=== PATIENT | female | born 1935 | race Hispanic/Latino ===

== ENCOUNTER 2017-08-05 09:27 | Emergency (ER) | payer MEDICARE, BC ==
[2017-08-05 09:27] VITALS: BMI 22.8
[2017-08-05 09:41] VITALS: BP 147/66; PULSE 74; RESP 16; TEMP 98.1
[2017-08-05 09:51] VITALS: O2SAT 98
--- NOTE | 2017-08-05 11:22 | RAD ---
PROCEDURE: Right Thumb radiographs. HISTORY: r/o fb COMPARISON: None. TECHNIQUE: AP radiograph of the right hand, as well as spot oblique and lateral images of thumb were obtained. FINDINGS: RIGHT THUMB: No acute fracture. Osteoarthritis CMC 1. Osteoarthritis IP 1 comment DIP 2 and 5. No articular erosions. No osseous fracture. No radiopaque foreign body. Remainder of the right hand (as seen on the AP view) grossly unremarkable. JOINTS: As above SOFT TISSUES: Normal. OTHER FINDINGS: None. IMPRESSION: No radiopaque foreign body. Multifocal osteoarthritis. No acute fracture.
--- NOTE | 2017-08-05 13:56 | ED PDOC ---
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 The patient states she was outside gardening and she thinks she may have a thorn stuck in side of her thumb, she denies any trauma. The patient reports she has been able to express pus from the area earlier today. She denies any fever, abdominal pain, chest pain, or any other complaints at this time. Time/Duration: < week Symptom Onset: Sudden Symptom Course: Unchanged Activities at Onset: Significant (gardening ) Context: Home Past Medical History - Provider Review Nursing Documentation Reviewed: Yes - Infectious Disease Hx of Infectious Diseases: None - Cardiac Hx Hypertension: Yes Hx Pacemaker: Yes - Pulmonary Hx Asthma: Yes - Neurological Hx Dizziness: Yes - HEENT Hx HEENT Disorder: Yes (rhinoplasty) Hx Cataracts: Yes (bilateral) Other/Comment: b/l hearing aides, eyeglasses - Renal Hx Renal Disorder: No - Endocrine/Metabolic Hx Hypothyroidism: Yes - Hematological/Oncological Hx Blood Disorders: No - Integumentary Other/Comment: left great toe fungus infection - Musculoskeletal/Rheumatological Hx Arthritis: Yes - Gastrointestinal Hx Gastrointestinal Disorders: Yes Hx Diverticulitis: Yes - Genitourinary/Gynecological Hx Genitourinary Disorders: No - Psychiatric Hx Psychophysiologic Disorder: No Hx Substance Use: No - Surgical History Hx Cardiac Catheterization: No Hx Hysterectomy: Yes Hx Open Heart Surgery: No Hx Orthopedic Surgery: Yes (R KNEE total knee replacement) Hx Valve Replacement: No Other/Comment: sarcoma resection leg, left breast nodule excision, r ft hammertoe sx - Anesthesia Hx Anesthesia Reactions: No - Suicidal Assessment Feels Threatened In Home Enviroment: No Family/Social History - Physician Review Nursing Documentation Reviewed: Yes Family/Social History: Unknown Family HX Smoking Status: Never Smoked Hx Alcohol Use: No Hx Substance Use: No Allergies/Home Meds Allergies/Adverse Reactions: Allergies CAT DANDER Adverse Reaction (Severe, Uncoded 08/05/17 09:33) ITCHY EYES/SNEEZING Home Medications: Home Meds Medication Instructions Recorded Confirmed Levothyroxine [Synthroid] 50 mcg PO QAM 12/13/16 08/05/17 Rosuvastatin Calcium [Crestor] 5 mg PO HS 12/13/16 08/05/17 Albuterol HFA [Ventolin HFA 90 2 puff NEB Q6 PRN 08/05/17 08/05/17 mcg/actuation (8 g)] Montelukast [Singulair] 10 mg PO DAILY 08/05/17 08/05/17 Nebivolol [Bystolic] 5 mg PO DAILY 08/05/17 08/05/17 Review of Systems - Physician Review All systems were reviewed & negative as marked: Yes - Review of Systems Constitutional: absent: Fevers Cardiovascular: absent: Chest Pain Gastrointestinal: absent: Abdominal Pain Skin: Abscess (abscess to right thumb; able to extract pus earlier today. ) Physical Exam Vital Signs Reviewed: Yes Vital Signs Temp Pulse Resp BP Pulse Ox 08/05/17 09:51 98.1 F 74 16 147/66 98 08/05/17 09:36 98.1 F 74 16 147/66 97 Temperature: Afebrile Blood Pressure: Normal Pulse: Regular Respiratory Rate: Normal Appearance: Positive for: Well-Appearing, Non-Toxic, Comfortable Pain Distress: None Mental Status: Positive for: Alert and Oriented X 3 - Systems Exam Head: Present: Atraumatic, Normocephalic Pupils: Present: PERRL Extroacular Muscles: Present: EOMI Conjunctiva: Present: Normal Neck: Present: Normal Range of Motion Respiratory/Chest: Present: Clear to Auscultation, Good Air Exchange. No: Respiratory Distress, Accessory Muscle Use Cardiovascular: Present: Regular Rate and Rhythm, Normal S1, S2. No: Murmurs Abdomen: Present: Normal Bowel Sounds. No: Tenderness, Distention, Peritoneal Signs Upper Extremity: Present: Normal Inspection. No: Cyanosis, Edema Lower Extremity: Present: Normal Inspection. No: Edema Neurological: Present: GCS=15, CN II-XII Intact, Speech Normal Skin: Present: Abscess (Dorsal aspect of DIP joint on right thumb has a 1/2 cm abscess that was able to express fluid; good capillary refill) Psychiatric: Present: Alert, Oriented x 3, Normal Insight, Normal Concentration Medical Decision Making ED Course and Treatment: 08/05/17 13:56 Impression: 82 year old female with abscess to right thumb. Differential Diagnosis included but are not limited to: Plan: -- Keflex -- Reassess and disposition Progress Notes: - RAD Interpretation Radiology Orders: 08/05/17 09:53 HAND RIGHT THUMB [RAD] Stat - Medication Orders Current Medication Orders: Discontinued Medications Cephalexin Monohydrate (Keflex) 500 mg PO STAT STA PRN Reason: Protocol Stop: 08/05/17 11:10 Last Admin: 08/05/17 11:31 Dose: 500 mg - Scribe Statement The provider has reviewed the documentation as recorded by the Joselineibe Una Hartmann Provider Scribe Attestation: All medical record entries made by the Scribe were at my direction and personally dictated by me. I have reviewed the chart and agree that the record accurately reflects my personal performance of the history, physical exam, medical decision making, and the department course for this patient. I have also personally directed, reviewed, and agree with the discharge instructions and disposition. Disposition/Present on Arrival - Present on Arrival Any Indicators Present on Arrival: No History of DVT/PE: No History of Uncontrolled Diabetes: No Urinary Catheter: No History of Decub. Ulcer: No History Surgical Site Infection Following: None - Disposition Have Diagnosis and Disposition been Completed?: Yes Diagnosis: Abscess of thumb Disposition: HOME/ ROUTINE Disposition Time: 10:40 Condition: GOOD Discharge Instructions (ExitCare): Abscess (ED) Additional Instructions: Thank you for letting us take care of you today. Your provider was Dr. Fernández. You were treated for a thumb abscess. The emergency medical care you received today was directed at your acute symptoms. If you were prescribed any medication, please fill it and take as directed. It may take several days for your symptoms to resolve. Return to the Emergency Department if your symptoms worsen, do not improve, or if you have any other problems. Please contact your doctor or call one of the physicians/clinics you have been referred to that are listed on the Patient Visit Information form that is included in your discharge packet. Bring any paperwork you were given at discharge with you along with any medications you are taking to your follow up visit. Our treatment cannot replace ongoing medical care by a primary care provider (PCP) outside of the emergency department. Thank you for allowing the [facility] team to be part of your care today. Follow up with your doctor in 2-3 days for re-evaluation and further management. Prescriptions: Cephalexin [cephalexin] 500 mg PO Q8 #15 cap Referrals: PCP,NO [Primary Care Provider] - Follow up with primary Forms: [employer] (Greenlandic)
== END 2017-08-05 11:42 | disposition home or self-care (01) ==
LOC: ED 09:27
DX: L02.511 Cutaneous abscess of right hand (principal); I10 Essential (primary) hypertension; I44.1 Atrioventricular block, second degree; R00.1 Bradycardia, unspecified

== ENCOUNTER 2017-09-24 09:58 | Emergency (ER) | payer MEDICARE, BC ==
[2017-09-24] MEDS ORDERED: Albuterol-Ipratrop 3 mg / 0.5 (3 ml) UD IH STA (10:17)
--- NOTE | 2017-09-24 10:21 | ED PDOC ---
Arrival/HPI - General Chief Complaint: Shortness Of Breath Time Seen by Provider: 09/24/17 10:03 Historian: Patient - History of Present Illness Time/Duration: Other (Several months) Symptom Onset: Gradual Symptom Course: Worsening Severity Level: Mild Activities at Onset: Rest Associated Symptoms (Text): 09/24/17 10:18 Patient complains of a several month history of worsening shortness of breath. No cough congestion or URI. No fever or chills. No chest or back pain. No abdominal pain nausea or vomiting. She's been seen by her PMD and also the personal trainer. She had sleep apnea testing done, which she reports was positive , but she has not yet received her CPAP equipment. She appears comfortable and in no distress. She is somewhat anxious. She states the breathing was worse last night. She does not have a nebulizer at home. She has a history of asthma. She is a never smoker. PMD: Dr. Garza Past Medical History - Provider Review Nursing Documentation Reviewed: Yes - Infectious Disease Hx of Infectious Diseases: None - Reproductive Menopause: Yes - Cardiac Hx Hypertension: Yes Hx Pacemaker: Yes - Pulmonary Hx Asthma: Yes Hx Sleep Apnea: Yes - Neurological Hx Dizziness: Yes - HEENT Hx HEENT Disorder: Yes (rhinoplasty) Hx Cataracts: Yes (bilateral) Other/Comment: b/l hearing aides, eyeglasses - Renal Hx Renal Disorder: No - Endocrine/Metabolic Hx Hypothyroidism: Yes - Hematological/Oncological Hx Blood Disorders: No - Integumentary Other/Comment: left great toe fungus infection - Musculoskeletal/Rheumatological Hx Arthritis: Yes - Gastrointestinal Hx Gastrointestinal Disorders: Yes Hx Diverticulitis: Yes - Genitourinary/Gynecological Hx Genitourinary Disorders: No - Psychiatric Hx Psychophysiologic Disorder: No Hx Substance Use: No - Surgical History Hx Cardiac Catheterization: No Hx Hysterectomy: Yes Hx Open Heart Surgery: No Hx Orthopedic Surgery: Yes (R KNEE total knee replacement) Hx Valve Replacement: No Other/Comment: sarcoma resection leg, left breast nodule excision, r ft hammertoe sx - Anesthesia Hx Anesthesia Reactions: No - Suicidal Assessment Feels Threatened In Home Enviroment: No Family/Social History - Physician Review Nursing Documentation Reviewed: Yes Family/Social History: Unknown Family HX Smoking Status: Never Smoked Hx Alcohol Use: No Hx Substance Use: No Allergies/Home Meds Allergies/Adverse Reactions: Allergies CAT DANDER Adverse Reaction (Severe, Uncoded 08/05/17 09:33) ITCHY EYES/SNEEZING Home Medications: Home Meds Medication Instructions Recorded Confirmed Levothyroxine [Synthroid] 50 mcg PO QAM 12/13/16 09/24/17 Albuterol HFA [Ventolin HFA 90 2 puff NEB Q6 PRN 08/05/17 09/24/17 mcg/actuation (8 g)] Montelukast [Singulair] 10 mg PO DAILY 08/05/17 09/24/17 Budesonide/Formoterol Fumarate 10.2 gm IH PRN PRN 09/24/17 09/24/17 [Symbicort 160-4.5 Mcg Inhaler] Lisinopril [Zestril] 5 mg PO DAILY 09/24/17 09/24/17 Review of Systems - Physician Review All systems were reviewed & negative as marked: Yes - Review of Systems Constitutional: Fatigue. absent: Fevers ENT: absent: Sinus Congestion Respiratory: SOB. absent: Cough, Sputum, Wheezing Cardiovascular: absent: Chest Pain, Palpitations, Syncope Gastrointestinal: absent: Abdominal Pain, Diarrhea, Nausea, Vomiting Neurological: absent: Headache, Dizziness Physical Exam Vital Signs Reviewed: Yes Vital Signs Temp Pulse Resp BP Pulse Ox 09/24/17 12:15 97.9 F 61 19 123/44 L 95 09/24/17 10:16 97.9 F 64 18 150/80 99 09/24/17 10:14 18 99 Temperature: Afebrile Blood Pressure: Normal Pulse: Regular Respiratory Rate: Normal Appearance: Positive for: Well-Appearing, Non-Toxic, Comfortable Pain Distress: None Mental Status: Positive for: Alert and Oriented X 3 - Systems Exam Head: Present: Atraumatic, Normocephalic Pupils: Present: PERRL Extroacular Muscles: Present: EOMI Conjunctiva: Present: Normal Ears: Present: NORMAL TM, Normal Canal. No: Erythema Mouth: Present: Moist Mucous Membranes Pharnyx: No: ERYTHEMA, EXUDATE, TONSILS ENLARGED Neck: Present: Normal Range of Motion Respiratory/Chest: Present: Clear to Auscultation, Good Air Exchange. No: Respiratory Distress, Accessory Muscle Use, Wheezes, Rales, Retracting, Rhonchi , Tachypneic, Tender to Palpation Cardiovascular: Present: Regular Rate and Rhythm, Normal S1, S2. No: Murmurs Abdomen: Present: Normal Bowel Sounds. No: Tenderness, Distention, Peritoneal Signs, Rebound, Guarding Back: Present: Normal Inspection. No: CVA Tenderness, Paraspinal Tenderness Upper Extremity: Present: Normal Inspection. No: Cyanosis, Edema Lower Extremity: Present: Normal Inspection. No: Edema Neurological: Present: GCS=15, CN II-XII Intact, Speech Normal, Motor Func Grossly Intact Skin: Present: Warm, Dry, Normal Color. No: Rashes Psychiatric: Present: Alert, Oriented x 3, Normal Insight, Normal Concentration , Anxious Medical Decision Making ED Course and Treatment: 09/24/17 10:20 Plan: -- EKG -- Labs -- Chest X-ray -- Duoneb -- Lasix -- Reassess and disposition Prior Visits: Notes and results from previous visits were reviewed. Patient was last seen in the emergency department on 09/24/2018 presents complaining of worsening shortness of breath for several months. Progress Notes: EKG is pacing rate approximately 60 EXAM: Chest X-ray Dictator : Lee Naylor MD Report Date : 09/24/2017 12:10:53 IMPRESSION: No active disease. 09/24/17 13:05 Workup shows possibly early mild CHF. D-dimer is minimally elevated. Patient feels better after 1 DuoNeb treatment. She is not in any distress. She is sleeping comfortably and soundly and easily aroused. I spoke with who will make arrangements for patient to be seen by tomorrow morning. I feel it is safe for the patient be discharged home. The patient requested that I speak with , in order to get her CPAP equipment. I discussed with the patient that I did not feel this would be possible on a Monday afternoon but the call has been made anyway. 09/24/17 13:15 I spoke with , who requested the patient call his office tomorrow morning after 9:30 AM. He believes that there is an insurance issue with her CPAP equipment. - Lab Interpretations Lab Results: 09/24/17 10:49 09/24/17 10:49 Lab Results 09/24/17 10:49: Sodium 143, Potassium 4.3, Chloride 108 H, Carbon Dioxide 27, Anion Gap 13, BUN 19, Creatinine 0.8, Est GFR ( Amer) > 60, Est GFR (Non- Af Amer) > 60, Random Glucose 94, Calcium 10.0, Total Bilirubin 0.8, AST 36, ALT 76 H, Alkaline Phosphatase 73, Lactate Dehydrogenase 497, Total Creatine Kinase 73, Troponin I < 0.01, NT-Pro-B Natriuret Pep 766 H, Total Protein 6.9, Albumin 4.1, Globulin 2.9, Albumin/Globulin Ratio 1.4 09/24/17 10:49: PT 11.6, INR 1.05, APTT 27.7, D-Dimer, Quantitative 245 H 09/24/17 10:49: WBC 7.8, RBC 4.80, Hgb 14.9, Hct 45.4, MCV 94.6, MCH 31.0, MCHC 32.8, RDW 13.1, Plt Count 122, MPV 12.3 H, Gran % 60.4, Lymph % (Auto) 28.4, Brooks % (Auto) 10.5 H, Eos % (Auto) 0.4 L, Baso % (Auto) 0.3, Gran # 4.72, Lymph # 2.2, Brooks # 0.8 H, Eos # 0.0, Baso # 0.02 I have reviewed the lab results: Yes - RAD Interpretation Radiology Orders: 09/24/17 10:17 CHEST PORTABLE [RAD] Stat Chest one view shows a pacemaker with no infiltrate or effusion or cardiomegaly Seafood Manager: ED Physician - EKG Interpretation Interpreted by ED Physician: Yes Type: 12 lead EKG - Medication Orders Current Medication Orders: Discontinued Medications Albuterol/Ipratropium (Duoneb 3 Mg/0.5 Mg (3 Ml) Ud) 3 ml IH ONCE STA Stop: 09/24/17 10:18 Last Admin: 09/24/17 10:25 Dose: 3 ml Furosemide (Lasix) 20 mg IVP ONCE ONE Stop: 09/24/17 12:04 Disposition/Present on Arrival - Present on Arrival Any Indicators Present on Arrival: No History of DVT/PE: No History of Uncontrolled Diabetes: No Urinary Catheter: No History of Decub. Ulcer: No History Surgical Site Infection Following: None - Disposition Have Diagnosis and Disposition been Completed?: Yes Diagnosis: Dyspnea, Congestive heart failure, Asthma, Sleep apnea Disposition: HOME/ ROUTINE Disposition Time: 13:17 Patient Plan: Discharge Patient Problems: Current Active Problems Problem Status Onset Asthma Acute Congestive heart failure Acute Dyspnea Acute Sleep apnea Acute Condition: IMPROVED Discharge Instructions (ExitCare): Heart Failure (ED) Additional Instructions: Call tomorrow morning after 9:30 AM. Follow-up with Dr. Garza tomorrow morning Referrals: Letha Garza MD [Primary Care Provider] - Follow up with primary Forms: [employer] (Jamaican)
[2017-09-24 10:30] VITALS: TEMP 97.9; BMI 22.7
[2017-09-24 10:55] LABS: BASO # 0.02 K/mm3 (0.0-2.0); BASO % 0.3 % (0.0-3.0); EOS % 0.4 % (1.5-5.0); GRAN # 4.72 (1.4-6.5); GRAN % 60.4 % (50.0-68.0); HEMATOCRIT 45.4 % (36.0-48.0); LYMPH # 2.2 (1.2-3.4); LYMPH % 28.4 % (22.0-35.0); MEAN CELL VOLUME 94.6 fl (80.0-105.0); MEAN CORPUSCULAR HGB CONC 32.8 g/dl (31.0-37.0); MEAN PLATELET VOLUME 12.3 fl (7.0-11.0); MONO # 0.8 (0.1-0.6); MONO % 10.5 % (1.0-6.0); RED CELL DISTRIBUTION WIDTH 13.1 % (11.5-14.5); WHITE BLOOD COUNT 7.8 10^3/ul (4.5-11.0)
[2017-09-24 11:09] LABS: ALB/GLOB RATIO 1.4 (1.1-1.8); ALKALINE PHOSPHATASE 73 U/L (38-126); ALT/SGPT 76 U/L (7-56); AST/SGOT 36 U/L (14-36); BILIRUBIN,TOTAL 0.8 mg/dL (0.2-1.3); BLOOD UREA NITROGEN 19 mg/dL (7-21); CARBON DIOXIDE 27 mmol/L (21-33); CHLORIDE 108 mmol/L (98-107); GFR AFRICAN-AMERICAN > 60; GLUCOSE,RANDOM 94 mg/dL (70-110); POTASSIUM 4.3 mmol/L (3.6-5.0); SODIUM 143 mmol/L (132-148); TOTAL PROTEIN 6.9 g/dL (5.8-8.3)
[2017-09-24 11:10] LABS: INR 1.05 (0.93-1.08); PARTIAL THROMBOPLASTIN TIME 27.7 Seconds (25.1-36.5)
[2017-09-24 11:19] LABS: TROPONIN I < 0.01 ng/mL
--- NOTE | 2017-09-24 12:12 | RAD ---
HISTORY: sob COMPARISON: 01/03/2017 FINDINGS: LUNGS: No active pulmonary disease. PLEURA: No significant pleural effusion identified, no pneumothorax apparent. CARDIOVASCULAR: Normal heart size. Permanent pacemaker. OSSEOUS STRUCTURES: No significant abnormalities. VISUALIZED UPPER ABDOMEN: Normal. OTHER FINDINGS: None. IMPRESSION: No active disease.
[2017-09-24 12:21] VITALS: BP 123/44; PULSE 61; RESP 19; O2SAT 95
--- NOTE | 2017-09-24 14:49 | CARD ---
APPROVED REPORT EKG Measurement Heart [id number] <Conclusion> Electronic ventricular pacemaker
== END 2017-09-24 13:28 | disposition home or self-care (01) ==
LOC: ED 09:58
DX: I11.0 Hypertensive heart disease with heart failure (principal); I50.9 Heart failure, unspecified; J45.909 Unspecified asthma, uncomplicated; G47.30 Sleep apnea, unspecified; R06.00 Dyspnea, unspecified; Z95.0 Presence of cardiac pacemaker

== ENCOUNTER 2017-11-01 18:09 | Inpatient (IN) | payer MEDICARE, BC ==
[2017-11-01 18:10] VITALS: BMI 22.7
[2017-11-01] MEDS ORDERED: Sodium Chloride 0.9% 500 ML IV STA (18:47)
--- NOTE | 2017-11-01 19:24 | ED PDOC ---
Arrival/HPI - General Historian: Patient <Kaelyn Bains PA-C - Last Filed: 11/01/17 19:19> <Chas Martinez - Last Filed: 11/01/17 21:33> - General Chief Complaint: Cough, Cold, Congestion Time Seen by Provider: 11/01/17 18:20 - History of Present Illness Narrative History of Present Illness (Text): 11/01/17 19:21 82 yo F w/ PMH of HTN, asthma, hypothyroidism and sleep apnea, presents with gradual onset of nausea, tightness to the lower sternal chest, associated with URI symptoms, all of which started 3 hours ago. Patient reports chest pain described as indigestion, but her last meal was this morning, and was only oatmeal. Otherwise: (-) radiation, (-) diaphoresis, (-) dyspnea, (-) pleuritic component, (-) ripping or tearing quality, (-) positional component, (-) exertional component, (-) dizziness, (-) syncope, (-) abdominal pain, (-) vomiting, (-) calf swelling/pain, (-) neuro deficits, (-) flank pain, (-) urinary symptoms, (-) recent travel, (-) sick contacts. Of note, patient's last stress test was > 5 years ago. PMD [place] (Kaelyn Bains PA-C) Past Medical History - Provider Review Nursing Documentation Reviewed: Yes - Infectious Disease Hx of Infectious Diseases: None - Cardiac Hx Hypertension: Yes Hx Pacemaker: Yes - Pulmonary Hx Asthma: Yes Hx Sleep Apnea: Yes - Neurological Hx Dizziness: Yes - HEENT Hx HEENT Disorder: Yes (rhinoplasty) Hx Cataracts: Yes (bilateral) Other/Comment: b/l hearing aides, eyeglasses - Renal Hx Renal Disorder: No - Endocrine/Metabolic Hx Hypothyroidism: Yes - Hematological/Oncological Hx Blood Disorders: No - Integumentary Other/Comment: left great toe fungus infection - Musculoskeletal/Rheumatological Hx Arthritis: Yes - Gastrointestinal Hx Gastrointestinal Disorders: Yes Hx Diverticulitis: Yes - Genitourinary/Gynecological Hx Genitourinary Disorders: No - Psychiatric Hx Psychophysiologic Disorder: No Hx Substance Use: No - Surgical History Hx Cardiac Catheterization: No Hx Hysterectomy: Yes Hx Open Heart Surgery: No Hx Orthopedic Surgery: Yes (R KNEE total knee replacement) Hx Valve Replacement: No Other/Comment: sarcoma resection leg, left breast nodule excision, r ft hammertoe sx - Anesthesia Hx Anesthesia: Yes Hx Anesthesia Reactions: No Hx Malignant Hyperthermia: No - Suicidal Assessment Feels Threatened In Home Enviroment: No <Kaelyn Bains PA-C - Last Filed: 11/01/17 19:19> Family/Social History - Physician Review Nursing Documentation Reviewed: Yes Family/Social History: CVA/TIA (father), CAD/CA (mother) Smoking Status: Never Smoked Hx Alcohol Use: No Hx Substance Use: No <Kaelyn Bains PA-C - Last Filed: 11/01/17 19:19> Allergies/Home Meds <Kaelyn Bains PA-C - Last Filed: 11/01/17 19:19> <Chas Martinez - Last Filed: 11/01/17 21:33> Allergies/Adverse Reactions: Allergies CAT DANDER Adverse Reaction (Severe, Uncoded 08/05/17 09:33) ITCHY EYES/SNEEZING Home Medications: Home Meds Medication Instructions Recorded Confirmed Levothyroxine [Synthroid] 50 mcg PO QAM 12/13/16 11/01/17 Albuterol HFA [Ventolin HFA 90 2 puff NEB Q6 PRN 08/05/17 11/01/17 mcg/actuation (8 g)] Montelukast [Singulair] 10 mg PO DAILY 08/05/17 11/01/17 Budesonide/Formoterol Fumarate 10.2 gm IH PRN PRN 09/24/17 11/01/17 [Symbicort 160-4.5 Mcg Inhaler] Lisinopril [Zestril] 5 mg PO DAILY 09/24/17 11/01/17 Review of Systems - Review of Systems Constitutional: absent: Fatigue, Weight Change, Fevers ENT: absent: Sore Throat, Rhinorrhea, Epistaxis Respiratory: Cough. absent: SOB, Sputum Cardiovascular: Chest Pain. absent: Palpitations, Edema Gastrointestinal: Nausea. absent: Abdominal Pain, Stool Changes, Vomiting Genitourinary Female: absent: Dysuria, Frequency, Hematuria Musculoskeletal: absent: Arthralgias, Back Pain, Neck Pain Skin: absent: Rash, Pruritis, Skin Lesions <Kaelyn Bains PA-C - Last Filed: 11/01/17 19:19> Physical Exam <Kaelyn Bains PA-C - Last Filed: 11/01/17 19:19> <Chas Martinez - Last Filed: 11/01/17 21:33> - Physical Exam Narrative Physical Exam (Text): 11/01/17 19:20 GENERAL APPEARANCE: Patient is awake, alert, oriented x 3, in no acute distress. SKIN: Warm, dry; (-) cyanosis, (-) rash. (-) Decubitus Ulcer EYES: (-) conjunctival pallor, (-) scleral icterus, (-) conjunctival hemorrhage. ENMT: Mucous membranes dry. TMs: (-) erythema. Airway patent: (-) stridor. Pharynx: (-) erythema, (-) exudate. NECK: (-) tenderness, (-) stiffness, (-) meningismus, (-) lymphadenopathy. CHEST AND RESPIRATORY: (-) accessory muscle use. Lungs: (-) rales, (-) rhonchi, (-) wheezes, (-) rub; breath sounds equal bilaterally. HEART AND CARDIOVASCULAR: (-) irregularity; (-) murmur, (-) gallop, (-) rub. ABDOMEN AND GI: Soft; (-) tenderness, (-) guarding; (-) organomegaly; (-) mass ; (-) CVA tenderness. EXTREMITIES: (-) deformity; (-) cellulitis, (-) lymphangitis; (-) subungual hemorrhage; (-) edema. NEURO AND PSYCH: Mental status as above; (-) focal findings. (Kaelyn Bains PA-C) Vital Signs Temp Pulse Resp BP Pulse Ox 11/01/17 21:31 71 18 146/72 98 11/01/17 21:23 77 145/72 11/01/17 20:37 77 20 140/78 96 11/01/17 19:12 71 18 138/86 96 11/01/17 18:16 98.3 F 74 18 144/93 H 96 Medical Decision Making <Kaelyn Bains PA-C - Last Filed: 11/01/17 19:19> <Chas Martinez - Last Filed: 11/01/17 21:33> ED Course and Treatment: 11/01/17 19:19 82 yo F w/ PMH of HTN, asthma, hypothyroidism and sleep apnea, presents with gradual onset of nausea, tightness to the lower sternal chest described as indigestion, which started 3 hours ago. Plan: -- Labs -- IV fluids -- Urinalysis -- EKG -- CXR -- ASA PO -- Reassess and disposition -- VBG EKG : NSR at 71 bpm, (-) acute ST changes, as read by PA. CXR : _NAD, as read by PA (Herson ORONA,Kaelyn Yeboah) - Lab Interpretations Lab Results: 11/01/17 19:30 11/01/17 19:30 Lab Results 11/01/17 19:30: Influenza Typ A,B (EIA) Negative for flu a/b 11/01/17 19:30: Sodium 137, Potassium 4.1, Chloride 100, Carbon Dioxide 25, Anion Gap 16, BUN 10, Creatinine 0.6 L, Est GFR ( Amer) > 60, Est GFR ( Non-Af Amer) > 60, Random Glucose 147 H, Calcium 9.8, Phosphorus 2.8, Magnesium 1.9, Total Bilirubin 0.7, AST 27, ALT 41, Alkaline Phosphatase 87, Troponin I 0.30 H* D, Total Protein 7.3, Albumin 4.2, Globulin 3.1, Albumin/Globulin Ratio 1.3 11/01/17 19:30: PT 12.8 H, INR 1.17 H, APTT 30.5 11/01/17 19:30: WBC 5.7 D, RBC 5.08, Hgb 15.8, Hct 47.2, MCV 92.9, MCH 31.1, MCHC 33.5, RDW 12.4, Plt Count 117 L, MPV 11.9 H, Gran % 79.4 H, Lymph % (Auto) 10.9 L, Daniels % (Auto) 9.5 H, Eos % (Auto) 0.0 L, Baso % (Auto) 0.2, Gran # 4.54 , Lymph # 0.6 L, Daniels # 0.5, Eos # 0.0, Baso # 0.01 - RAD Interpretation Radiology Orders: 11/01/17 18:44 CHEST PORTABLE [RAD] Stat - Medication Orders Current Medication Orders: Aspirin (Aspirin Chewable) 81 mg PO DAILY [facility] Atorvastatin Calcium (Lipitor) 80 mg PO HS [facility] Clopidogrel Bisulfate (Plavix) 75 mg PO DAILY [facility] Heparin Sodium/Sodium Chloride (Heparin 87558 Units/250ml 1/2 Normal Saline) 25 ,000 units in 250 mls @ 7.424 mls/hr IV .Q24H MELVIN; 12 UNITS/KG/HR PRN Reason: Protocol Last Admin: 11/01/17 20:56 Dose: 7.424 mls/hr eMAR Start Stop Document 11/01/17 20:56 JOL (Rec: 11/01/17 20:56 [id number]) Intravenous Solution Start Date 11/01/17 Start Time 20:56 Levothyroxine Sodium (Synthroid) 50 mcg PO ACB [facility] Metoprolol Tartrate (Lopressor) 25 mg PO BID [facility] Last Admin: 11/01/17 21:23 Dose: 25 mg MAR Pulse and Blood Pressure Document 11/01/17 21:23 JOL (Rec: 11/01/17 21:23 [id number]) Pulse Pulse Rate (60-90) 77 Blood Pressure Blood Pressure (100/60-150/90) 145/72 Morphine Sulfate (Morphine) 0.5 mg IVP Q4H PRN PRN Reason: Pain, moderate (4-7) Pantoprazole Sodium (Protonix Inj) 40 mg IVP DAILY [facility] Discontinued Medications Aspirin (Aspirin) 325 mg PO STAT STA Stop: 11/01/17 18:49 Last Admin: 11/01/17 19:15 Dose: 325 mg Clopidogrel Bisulfate (Plavix) 300 mg PO STAT STA Stop: 11/01/17 21:14 Last Admin: 11/01/17 21:23 Dose: 300 mg Famotidine (Pepcid) 20 mg IVP STAT STA Stop: 11/01/17 20:16 Last Admin: 11/01/17 20:32 Dose: 20 mg IVP Administration Document 11/01/17 20:32 JOL (Rec: 11/01/17 20:32 [id number]) Charges for Administration # of IVP Administrations 1 Heparin Sodium (Porcine) (Heparin) 3,800 units 60 units/kg (3800 units) IV ONCE ONE PRN Reason: Protocol Stop: 11/01/17 20:40 Last Admin: 11/01/17 20:56 Dose: 3,800 units eMAR Start Stop Document 11/01/17 20:56 JOL (Rec: 11/01/17 20:56 [id number][facility] Intravenous Solution Start Date 11/01/17 Start Time 20:56 Sodium Chloride (Sodium Chloride 0.9%) 500 mls @ 500 mls/hr IV .Q1H STA Stop: 11/01/17 19:46 Last Admin: 11/01/17 19:15 Dose: 500 mls/hr eMAR Start Stop Document 11/01/17 19:15 JOL (Rec: 11/01/17 19:44 [id number]) Intravenous Solution Start Date 11/01/17 Start Time 19:15 End Date 11/01/17 End time 20:15 Total Infusion Time 60 Heparin Sodium/Sodium Chloride (Heparin 80857 Units/250ml 1/2 Normal Saline) 25 ,000 units in 250 mls @ 7.62 mls/hr IV .Q24H [facility]; 12 UNITS/KG/HR PRN Reason: Protocol Nitroglycerin (Nitro-Bid 2% Oint) 1 ea TOP STAT STA Stop: 11/01/17 20:32 Last Admin: 11/01/17 20:36 Dose: 1 ea Ondansetron HCl (Zofran Inj) 4 mg IVP STAT STA Stop: 11/01/17 20:16 Last Admin: 11/01/17 20:32 Dose: 4 mg IVP Administration Document 11/01/17 20:32 JOL (Rec: 11/01/17 20:32 [id number]) Charges for Administration # of IVP Administrations 1 - PA / CARTOGRAPHIC AIDE / Resident Statement / has reviewed & agrees with the documentation as recorded. <Kaelyn Bains PA-C - Last Filed: 11/01/17 19:19> Disposition/Present on Arrival - Present on Arrival Any Indicators Present on Arrival: No History of DVT/PE: No History of Uncontrolled Diabetes: No Urinary Catheter: No History of Decub. Ulcer: No History Surgical Site Infection Following: None - Disposition Have Diagnosis and Disposition been Completed?: Yes <Kaelyn Bains PA-C - Last Filed: 11/01/17 19:19> - Disposition Disposition Time: 21:30 <Chas Martinez - Last Filed: 11/01/17 21:33> - Disposition Diagnosis: Acute CA Condition: STABLE [facility] - Follow up with primary Forms: Tiller (Tunisian)
[2017-11-01 19:58] LABS: BASO # 0.01 K/mm3 (0.0-2.0); BASO % 0.2 % (0.0-3.0); GRAN # 4.54 (1.4-6.5); GRAN % 79.4 % (50.0-68.0); HEMOGLOBIN 15.8 g/dL (12.0-16.0); LYMPH # 0.6 (1.2-3.4); LYMPH % 10.9 % (22.0-35.0); MEAN CELL VOLUME 92.9 fl (80.0-105.0); MEAN CORPUSCULAR HEMOGLOBIN 31.1 pg (25.0-35.0); MEAN CORPUSCULAR HGB CONC 33.5 g/dl (31.0-37.0); MEAN PLATELET VOLUME 11.9 fl (7.0-11.0); MONO # 0.5 (0.1-0.6); MONO % 9.5 % (1.0-6.0); RBC 5.08 10^6/uL (3.5-6.1); RED CELL DISTRIBUTION WIDTH 12.4 % (11.5-14.5); WHITE BLOOD COUNT 5.7 10^3/ul (4.5-11.0)
[2017-11-01 20:11] LABS: INR 1.17 (0.93-1.08); PARTIAL THROMBOPLASTIN TIME 30.5 Seconds (25.1-36.5); PROTHROMBIN TIME 12.8 SECONDS (9.4-12.5)
[2017-11-01 20:27] LABS: ALB/GLOB RATIO 1.3 (1.1-1.8); ALBUMIN 4.2 g/dL (3.0-4.8); ALT/SGPT 41 U/L (7-56); AST/SGOT 27 U/L (14-36); BLOOD UREA NITROGEN 10 mg/dL (7-21); CALCIUM 9.8 mg/dL (8.4-10.5); GFR AFRICAN-AMERICAN > 60; GFR NON-AFRICAN AMERICAN > 60; MAGNESIUM 1.9 mg/dL (1.7-2.2)
[2017-11-01] MEDS ORDERED: Nitroglycerin 2% Ointment Foilpak UD TOP STA (20:31)
[2017-11-01] MEDS ORDERED: Heparin25000 units/250ml 1/2NS 25,000 UNITS/250 ML BAG IV SCH ×2 (20:45→21:00)
[2017-11-01] MEDS ORDERED: Morphine 2 mg/ml ISec IVP PRN (21:18)
--- NOTE | 2017-11-01 21:27 | CP.PCM.CON ---
<Deniz Cheema - Last Filed: 11/01/17 23:03> History of Present Illness - History of Present Illness History of Present Illness: ICU consult note: 82 year old female with a past medical history significant for hypothyroidism, symptomatic bradycardia s/p permanent pacemaker placement (01/02/17), normal nuclear stress test in 02/2017, sleep apnea (on CPAP), who presents with 3 days of cough and rhinitis and one day of new-onset chest pain, nausea, and exertional dyspnea. The patient reports the chest pain started is deep seated, non-radiating, pressure like, worsened by activity, and accompanied by shortness of breath. Her symptoms started at 3:00 PM today and have not improved ; hence, she came to the ED. 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 Allergies: Cat dander Social: Lives alone, able to perform all ADL; denies smoking, alcohol, or illicit drug use Review of Systems - Constitutional Constitutional: Sleep Apnea. absent: Chills, Headache - EENT Eyes: absent: Blind Spots, Blurred Vision, Dry Eye Ears: Decreased Hearing Nose/Mouth/Throat: Nasal Congestion - Cardiovascular Cardiovascular: Chest Pain, Chest Pain at Rest, Dyspnea on Exertion - Respiratory Respiratory: Cough - Gastrointestinal Gastrointestinal: Dyspepsia - Genitourinary Genitourinary: absent: Change in Urinary Stream, Difficulty Urinating, Dysuria - Musculoskeletal Musculoskeletal: Arthralgias. absent: Myalgias, Neck Pain - Integumentary Integumentary: absent: Hirsutism, New Lesions, Pruritus - Neurological Neurological: Disequilibrium. absent: Restless Legs, Vertigo - Psychiatric Psychiatric: absent: Change in Libido, Confusion, Hopelessness - Endocrine Endocrine: absent: Change in Body Appearance, Deepening of Voice, Excessive Sweating - Hematologic/Lymphatic Hematologic: absent: Easy Bleeding, Easy Bruising Past Patient History - Infectious Disease Hx of Infectious Diseases: None - Past Social History Smoking Status: Never Smoked - CARDIAC Hx Hypertension: Yes Hx Pacemaker: Yes - PULMONARY Hx Asthma: Yes Hx Sleep Apnea: Yes - NEUROLOGICAL Hx Dizziness: Yes - HEENT Hx HEENT Problems: Yes (rhinoplasty) Hx Cataracts: Yes (bilateral) Other/Comment: b/l hearing aides, eyeglasses - RENAL Hx Chronic Kidney Disease: No - ENDOCRINE/METABOLIC Hx Hypothyroidism: Yes - HEMATOLOGICAL/ONCOLOGICAL Hx Blood Disorders: No - INTEGUMENTARY Other/Comment: left great toe fungus infection - MUSCULOSKELETAL/RHEUMATOLOGICAL Hx Arthritis: Yes - GASTROINTESTINAL Hx Gastrointestinal Disorders: Yes Hx Diverticulitis: Yes - GENITOURINARY/GYNECOLOGICAL Hx Genitourinary Disorders: No - PSYCHIATRIC Hx Psychophysiologic Disorder: No Hx Substance Use: No - SURGICAL HISTORY Hx Cardiac Catheterization: No Hx Hysterectomy: Yes Hx Open Heart Surgery: No Hx Orthopedic Surgery: Yes (R KNEE total knee replacement) Hx Valve Replacement: No Other/Comment: sarcoma resection leg, left breast nodule excision, r ft hammertoe sx - ANESTHESIA Hx Anesthesia: Yes Hx Anesthesia Reactions: No Hx Malignant Hyperthermia: No Meds Allergies/Adverse Reactions: Allergies Allergy/AdvReac Type Severity Reaction Status Date / Time CAT DANDER AdvReac Severe ITCHY Uncoded 08/05/17 09:33 EYES/SNEEZING - Medications Medications: Current Medications Aspirin (Aspirin Chewable) 81 mg PO DAILY [facility] Atorvastatin Calcium (Lipitor) 80 mg PO HS [facility] Clopidogrel Bisulfate (Plavix) 75 mg PO DAILY [facility] Heparin Sodium/Sodium Chloride (Heparin 80282 Units/250ml 1/2 Normal Saline) 25 ,000 units in 250 mls @ 7.424 mls/hr IV .Q24H [facility]; 12 UNITS/KG/HR PRN Reason: Protocol Last Admin: 11/01/17 20:56 Dose: 7.424 mls/hr Levothyroxine Sodium (Synthroid) 50 mcg PO QAM [facility] Metoprolol Tartrate (Lopressor) 25 mg PO BID [facility] Last Admin: 11/01/17 21:23 Dose: 25 mg Morphine Sulfate (Morphine) 0.5 mg IVP Q4H PRN PRN Reason: Pain, moderate (4-7) Pantoprazole Sodium (Protonix Inj) 40 mg IVP DAILY [facility] Physical Exam - Constitutional Appears: Non-toxic, No Acute Distress - Head Exam Head Exam: ATRAUMATIC, NORMOCEPHALIC - Eye Exam Eye Exam: Conjunctival injection, EOMI, Normal appearance Pupil Exam: NORMAL ACCOMODATION - ENT Exam ENT Exam: Mucous Membranes Moist, Normal Oropharynx Additional comments: hard of hearing, despite using hearing aids - Neck Exam Neck exam: Positive for: Normal Inspection. Negative for: Thyromegaly - Respiratory Exam Respiratory Exam: Clear to Auscultation Bilateral, NORMAL BREATHING PATTERN - Cardiovascular Exam Cardiovascular Exam: RRR, +S1 - GI/Abdominal Exam GI & Abdominal Exam: Normal Bowel Sounds, Soft. absent: Guarding - Extremities Exam Extremities exam: Positive for: normal inspection. Negative for: calf tenderness, joint swelling, pedal edema - Back Exam Back exam: NORMAL INSPECTION. absent: CVA tenderness (L), CVA tenderness (R) - Neurological Exam Neurological exam: Alert, CN II-XII Intact, Oriented x3 - Psychiatric Exam Psychiatric exam: Normal Affect, Normal Mood - Skin Skin Exam: Dry, Intact, Normal Color, Warm Results - Vital Signs Recent Vital Signs: Last Vital Signs Temp 98.3 F 11/01/17 18:16 Pulse 77 11/01/17 21:23 Resp 20 11/01/17 20:37 BP 145/72 11/01/17 21:23 Pulse Ox 96 11/01/17 20:37 - Labs Result Diagrams: 11/01/17 19:30 11/01/17 19:30 Labs: Laboratory Results - last 24 hr 11/01/17 11/01/17 11/01/17 19:30 19:30 19:30 WBC 5.7 D RBC 5.08 Hgb 15.8 Hct 47.2 MCV 92.9 MCH 31.1 MCHC 33.5 RDW 12.4 Plt Count 117 L MPV 11.9 H Gran % 79.4 H Lymph % (Auto) 10.9 L [place] % (Auto) 9.5 H Eos % (Auto) 0.0 L Baso % (Auto) 0.2 Gran # 4.54 Lymph # 0.6 L [place] # 0.5 Eos # 0.0 Baso # 0.01 PT 12.8 H INR 1.17 H APTT 30.5 Sodium 137 Potassium 4.1 Chloride 100 Carbon Dioxide 25 Anion Gap 16 BUN 10 Creatinine 0.6 L Est GFR ( Amer) > 60 Est GFR (Non-Af Amer) > 60 Random Glucose 147 H Calcium 9.8 Phosphorus 2.8 Magnesium 1.9 Total Bilirubin 0.7 AST 27 ALT 41 Alkaline Phosphatase 87 Troponin I 0.30 H* D Total Protein 7.3 Albumin 4.2 Globulin 3.1 Albumin/Globulin Ratio 1.3 Influenza Typ A,B (EIA) 11/01/17 19:30 WBC RBC Hgb Hct MCV MCH MCHC RDW Plt Count MPV Gran % Lymph % (Auto) [place] % (Auto) Eos % (Auto) Baso % (Auto) Gran # Lymph # [place] # Eos # Baso # PT INR APTT Sodium Potassium Chloride Carbon Dioxide Anion Gap BUN Creatinine Est GFR ( Amer) Est GFR (Non-Af Amer) Random Glucose Calcium Phosphorus Magnesium Total Bilirubin AST ALT Alkaline Phosphatase Troponin I Total Protein Albumin Globulin Albumin/Globulin Ratio Influenza Typ A,B (EIA) Negative for flu a/b Assessment & Plan - Assessment and Plan (Free Text) Assessment: 82 year old female with a past medical history of hypothyroidism, symptomatic bradycardia s/p permanent pacemaker placement (01/02/17), normal nuclear stress test in 02/2017, sleep apnea (on CPAP) who presents with persistent chest pain, nausea, and associated shortness of breath. Initial troponin was elevated at 0.30 and the patient was asked to be evaluate for ICU admission. Patient is hemodynamically stable and ICU admission is not warranted at this time. I would recommend continuing heparin drip, with a target aPTT between 50-70. Currently, the patient is exhibiting no signs of respiratory distress and is hemodynamically stable, and therefore does not need ICU admission at this time. Plan: 1) NSTEMI - Initial troponin was 0.30, repeat in q4h x 2 - Chest -X ray shows no active disease - EKG does show new changes compared to prior, but no ST elevation - Aspirin 325 PO stat; Continue with 81 mg PO Daily - Atorvastatin 80 PO statin; Continue with 80 mg daily DIN Daily - Clopidogrel 300 mg PO stat; Continue with 75 mg PO Daily - Metoprolol 25 mg PO stat; Continue 25 - Nitroglycerin 2% ointment applied in ED - Transthoracic Echocardiogram - Cardiology consult, Dr. Dela Cruz - Heparin Drip with reflexives aPTT 50 -70 seconds - 0.5 mg Morphine q4h for pain - NPO diet 2) Hypothryoidism - Continue with Levothyroxine 50 mcg 3) GI/DVT prophylaxis - Protonix 40 mg IVP daily - Sequential Compression Device - Date & Time Date: 11/01/17 Time: 23:21 <Randa GUZMAN,Raul - Last Filed: 11/02/17 02:36> Meds - Medications Medications: Current Medications Aspirin (Aspirin Chewable) 81 mg PO DAILY [facility] Atorvastatin Calcium (Lipitor) 80 mg PO HS [facility] Last Admin: 11/01/17 22:35 Dose: 80 mg Clopidogrel Bisulfate (Plavix) 75 mg PO DAILY [facility] Heparin Sodium/Sodium Chloride (Heparin 87086 Units/250ml 1/2 Normal Saline) 25 ,000 units in 250 mls @ 7.424 mls/hr IV .Q24H [facility]; 12 UNITS/KG/HR PRN Reason: Protocol Last Admin: 11/02/17 01:58 Dose: 12 units/kg/hr, 7.424 mls/hr Levothyroxine Sodium (Synthroid) 50 mcg PO ACB [facility] Metoprolol Tartrate (Lopressor) 25 mg PO BID [facility] Last Admin: 11/01/17 21:23 Dose: 25 mg Morphine Sulfate (Morphine) 0.5 mg IVP Q4H PRN PRN Reason: Pain, moderate (4-7) Pantoprazole Sodium (Protonix Inj) 40 mg IVP DAILY [facility] Results - Vital Signs Recent Vital Signs: Last Vital Signs Temp 98.3 F 11/01/17 18:16 Pulse 66 11/01/17 23:13 Resp 19 11/01/17 23:13 BP 104/67 11/01/17 23:13 Pulse Ox 95 11/01/17 23:13 - Labs Result Diagrams: 11/01/17 19:30 11/01/17 19:30 Labs: Laboratory Results - last 24 hr 11/01/17 11/02/17 23:35 00:30 Troponin I 1.18 H* D Urine Color Yellow Urine Appearance Clear Urine pH 6.5 Ur Specific [place] 1.015 Urine Protein Negative Urine Glucose (UA) Negative Urine Ketones 15 H Urine Blood Trace-intact H Urine Nitrate Negative Urine Bilirubin Negative Urine Urobilinogen 0.2 Ur Leukocyte Esterase Negative Urine RBC 0 - 2 Urine WBC 0 - 2 Ur Epithelial Cells 0 - 2 Attending/Attestation - Attestation I have personally seen and examined this patient.: Yes I have fully participated in the care of the patient.: Yes I have reviewed all pertinent clinical information: Yes Notes (Text): -I agree with the above ICU consult note completed by the resident physician, with the following additions and/or changes: -The patient is an 82 year old woman with a history of second degree heart block (s/p pacemaker), hypothyroidism, moderate aortic stenosis (ALVIN=1.3cm2 per echo from 01/03/17) and AYDIN, who is being admitted to the ICU overnight for close monitoring and management of NSTEMI. Therapeutic Heparin drip (per ACS protocol) will be started. She will also be placed on daily Plavix, ASA, Lipitor and Metoprolol (with hold parameters). PRN NTG and Morphine, as needed, for for chest pain. Cardiology (Dr. Dela Cruz) has been consulted. A 2D-echo has been ordered. Also, serial trop's and EKG's as well as HgA1c, lipid panel and TSH have been ordered. She will be kept NPO overnight.
[2017-11-01 21:42] LABS: VENOUS BLOOD GAS BASE EXCESS 1.5 mmol/L (0.0-2.0); VENOUS BLOOD GAS PO2 192 mm/Hg (30-55)
[2017-11-01 21:54] LABS: HDL CHOLESTEROL 55 mg/dL (29-60)
[2017-11-01 22:05] LABS: LDL CHOLESTEROL 89 mg/dL (0-129)
[2017-11-02 00:56] LABS: PH,URINE 6.5 (4.7-8.0); URINE BILIRUBIN NEGATIVE (NEGATIVE); URINE BLOOD TRACE-INTACT (NEGATIVE); URINE GLUCOSE (UA) NEGATIVE (NEGATIVE); URINE LEUKOCYTE ESTERASE NEGATIVE Leu/uL (NEGATIVE); URINE NITRATE NEGATIVE (NEGATIVE); URINE PROTEIN NEGATIVE mg/dL (<30 mg/dL); URINE UROBILINOGEN 0.2 E.U./dL (<1 E.U./dL)
[2017-11-02 01:15] LABS: URINE APPEARANCE CLEAR (CLEAR); URINE COLOR YELLOW (YELLOW)
[2017-11-02 01:18] LABS: URINE EPITHELIAL CELLS 0 - 2 /hpf (0-5); URINE RBC 0 - 2 /hpf (0-2); URINE WBC 0 - 2 /hpf (0-6)
[2017-11-02] MEDS ORDERED: Heparin 25,000units in 1/2NS 250 ML BAG IV SCH (01:45)
[2017-11-02 03:32] LABS: BASO # 0.01 K/mm3 (0.0-2.0); BASO % 0.2 % (0.0-3.0); GRAN # 3.43 (1.4-6.5); GRAN % 67.3 % (50.0-68.0); HEMOGLOBIN 14.8 g/dL (12.0-16.0); LYMPH # 0.7 (1.2-3.4); LYMPH % 13.8 % (22.0-35.0); MEAN CELL VOLUME 93.8 fl (80.0-105.0); MEAN CORPUSCULAR HEMOGLOBIN 30.7 pg (25.0-35.0); MEAN CORPUSCULAR HGB CONC 32.7 g/dl (31.0-37.0); MONO % 18.7 % (1.0-6.0); RBC 4.82 10^6/uL (3.5-6.1); RED CELL DISTRIBUTION WIDTH 12.4 % (11.5-14.5); WHITE BLOOD COUNT 5.1 10^3/ul (4.5-11.0)
[2017-11-02 03:55] LABS: ALB/GLOB RATIO 1.3 (1.1-1.8); ALBUMIN 3.9 g/dL (3.0-4.8); ALT/SGPT 39 U/L (7-56); AST/SGOT 40 U/L (14-36); BLOOD UREA NITROGEN 10 mg/dL (7-21); CALCIUM 9.7 mg/dL (8.4-10.5); GFR AFRICAN-AMERICAN > 60; GFR NON-AFRICAN AMERICAN > 60
[2017-11-02 04:04] LABS: TROPONIN I 1.11 ng/mL
[2017-11-02 04:22] LABS: T4 10.9 ug/dL (5.5-11.0)
[2017-11-02] MEDS ORDERED: Levalbuterol 1.25 MG/3 ML Inhal Soln UD IH STA (04:26)
--- NOTE | 2017-11-02 07:56 | RAD ---
HISTORY: Sepsis Patient COMPARISON: Portable chest 09/24/2017. FINDINGS: LUNGS: No active pulmonary disease. PLEURA: No significant pleural effusion identified, no pneumothorax apparent. CARDIOVASCULAR: Borderline cardiomegaly noted. No pulmonary vascular derangement. Pacemaker again identified. OSSEOUS STRUCTURES: No significant abnormalities. VISUALIZED UPPER ABDOMEN: Normal. OTHER FINDINGS: None. IMPRESSION: No interval acute cardiopulmonary disease appreciated. Borderline cardiomegaly again evident as well as unipolar permanent cardiac pacemaker.
[2017-11-02] MEDS ORDERED: Lidocaine 2% Inj (20ml) ONE (09:02)
[2017-11-02] MEDS ORDERED: Iodixanol 320 MG/ML 200 ML BOTTLE IV ONE (09:03)
[2017-11-02] MEDS ORDERED: HEPARIN SODIUM/NS 2,000 ML IV ONE (09:03)
[2017-11-02] MEDS ORDERED: Iodixanol 320 MG/ML 100 ML BOTTLE IV ONE (09:03)
[2017-11-02] MEDS ORDERED: Iohexol 350mgl/ml 50 ML ONE (09:03)
[2017-11-02] MEDS ORDERED: Midazolam 2 MG/2 ML VIAL ONE (09:08)
[2017-11-02] MEDS ORDERED: Eptifibatide 20 mg/10mL Inj IVP ONE (09:23)
[2017-11-02] MEDS ORDERED: Sodium Chloride 0.9% 1,000 ML IV SCH (10:00)
[2017-11-02] MEDS ORDERED: Arformoterol 15 mcg/2 ml Inh Sol IH ONE (10:15)
[2017-11-02] MEDS ORDERED: Fluticasone-Salmeterol 250-50mcg Diskus IH SCH (10:15)
[2017-11-02] MEDS ORDERED: Budesonide 0.5 mg/2 ml Inhal Susp UD IH ONE (10:15)
--- NOTE | 2017-11-02 11:39 | PN ---
DATE: 11/02/2017 REASON FOR DICTATION: Status post cardiac catheterization, normal coronaries, rule out PE. An 82-year-old female came in with, as mentioned, two kinds of chest pain; one with tenderness and one with chest pain and tightness. Troponin positive. Maximum troponin was 1.18 with significant T-inversion in 2, 3, aVF, V5, and V6, and therefore, the patient was taken to the director of cath lab, found to have normal coronaries, preserved LV function. So plan is to do to the V/Q scan to rule out PE. I spoke to the son in [place] on the telephone number [phone], named Marques Christy and updated the patient's condition before and after the cath. Kelsey Dela Cruz MD
[2017-11-02] MEDS: Levothyroxine 50 MCG TAB PO SCH (12:02)
--- NOTE | 2017-11-02 12:07 | CP.CCUPN ---
<ShellieRohit - Last Filed: 11/02/17 12:38> CCU Subjective - Physician Review Subjective (Free Text): Critical care Progress Note for Dr. Helton Patient seen and examined at bedside. Patient is resting in bed comfortably in bed this AM. Patient denies chest pain or SOB. Patient states that she is feeling better than yesterday. Patient may possibly go for cardiac cath. V/Q scan to be done today. No other complaints at this time. CCU Objective - Vital Signs / Intake & Output Intake and Output (Last 8hrs): Intake & Output 11/01/17 11/02/17 11/02/17 22:59 06:59 14:59 Intake Total 42 Output Total 300 Balance -258 Intake: IV 42 Right Hand 42 Oral 0 Output: Urine 300 Urine, Voided 300 Stool 0 Other: # Voids Urine, Voided 1 - Physical Exam Head: Positive for: Atraumatic, Normocephalic Pupils: Positive for: PERRL Extroacular Muscles: Positive for: EOMI Conjunctiva: Positive for: Normal Mouth: Positive for: Moist Mucous Membranes Neck: Positive for: Normal Range of Motion Respiratory/Chest: Positive for: Clear to Auscultation, Good Air Exchange. Negative for: Respiratory Distress, Accessory Muscle Use Cardiovascular: Positive for: Regular Rate and Rhythm, Normal S1, S2. Negative for: Murmurs Abdomen: Positive for: Normal Bowel Sounds. Negative for: Tenderness, Distention, Peritoneal Signs, Rebound, Guarding Back: Negative for: CVA Tenderness Upper Extremity: Positive for: Neurovascularly Intact, Capillary Refill < 2s Lower Extremity: Positive for: Neurovascularly Intact, Capillary Refill < 2 s Neurological: Positive for: GCS=15, CN II-XII Intact, Speech Normal, Motor Func Grossly Intact, Normal Sensory Function Skin: Positive for: Warm, Dry, Normal Color Psychiatric: Positive for: Alert, Normal Concentration, Normal Affect, Normal Mood - Medications Active Medications: Active Medications Generic Name Dose Route Start Last Admin Trade Name Freq PRN Reason Stop Dose Admin Arformoterol Tartrate 15 mcg 11/02/17 20:00 Brovana IH [id number] [facility] Aspirin 81 mg 11/02/17 10:00 11/02/17 09:39 Aspirin Chewable PO Not Given DAILY [facility] Atorvastatin Calcium 80 mg 11/02/17 10:10 Lipitor PO HS MELVIN Benzonatate 100 mg 11/02/17 10:00 Tessalon Perles PO TID MELVIN Budesonide 0.5 mg 11/02/17 20:00 Pulmicort Respules IH [id number] MELVIN Sodium Chloride 1,000 mls @ 50 mls/hr 11/02/17 10:00 Sodium Chloride 0.9% IV 11/02/17 23:59 .Q20H MELVIN Levothyroxine Sodium 50 mcg 11/02/17 07:30 Synthroid PO ACB MELVIN Lisinopril 5 mg 11/02/17 10:15 Zestril PO DAILY MELVIN Metoprolol Tartrate 25 mg 11/01/17 21:14 11/01/17 21:23 Lopressor PO 25 mg BID MELVIN Administration Morphine Sulfate 0.5 mg 11/01/17 21:18 Morphine IVP Q4H PRN Pain, moderate (4-7) Pantoprazole Sodium 40 mg 11/02/17 10:00 Protonix Inj IVP DAILY MELVIN - Patient Studies Lab Studies: Lab Studies 11/02/17 11/02/17 11/02/17 Range/Units 02:56 02:56 02:56 WBC 5.1 (4.5-11.0) 10^3/ul RBC 4.82 (3.5-6.1) 10^6/uL Hgb 14.8 (12.0-16.0) g/dL Hct 45.2 (36.0-48.0) % MCV 93.8 (80.0-105.0) fl MCH 30.7 (25.0-35.0) pg MCHC 32.7 (31.0-37.0) g/dl RDW 12.4 (11.5-14.5) % Plt Count 117 L (120.0-450.0) 10^3/uL MPV 12.0 H (7.0-11.0) fl Gran % 67.3 (50.0-68.0) % Lymph % (Auto) 13.8 L (22.0-35.0) % [place] % (Auto) 18.7 H (1.0-6.0) % Eos % (Auto) 0.0 L (1.5-5.0) % Baso % (Auto) 0.2 (0.0-3.0) % Gran # 3.43 (1.4-6.5) Lymph # 0.7 L (1.2-3.4) [place] # 1.0 H (0.1-0.6) Eos # 0.0 (0.0-0.7) Baso # 0.01 (0.0-2.0) K/mm3 APTT 71.0 H (25.1-36.5) Seconds Sodium (132-148) mmol/L Potassium (3.6-5.0) mmol/L Chloride (98-107) mmol/L Carbon Dioxide (21-33) mmol/L Anion Gap (10-20) BUN (7-21) mg/dL Creatinine (0.7-1.2) mg/dl Est GFR ( Amer) Est GFR (Non-Af Amer) Random Glucose (70-110) mg/dL Calcium (8.4-10.5) mg/dL Phosphorus (2.5-4.5) mg/dL Magnesium (1.7-2.2) mg/dL Total Bilirubin (0.2-1.3) mg/dL AST (14-36) U/L ALT (7-56) U/L Alkaline Phosphatase (38-126) U/L Troponin I ng/mL Total Protein (5.8-8.3) g/dL Albumin (3.0-4.8) g/dL Globulin gm/dL Albumin/Globulin Ratio (1.1-1.8) Thyroxine (T4) 10.9 (5.5-11.0) ug/dL TSH 3rd Generation 0.19 L (0.46-4.68) mIU/mL Urine Color (YELLOW) Urine Appearance (CLEAR) Urine pH (4.7-8.0) Ur Specific [place] (1.005-1.035) Urine Protein (<30 mg/dL) mg/dL Urine Glucose (UA) (NEGATIVE) mg/dL Urine Ketones (NEGATIVE) mg/dL Urine Blood (NEGATIVE) Urine Nitrate (NEGATIVE) Urine Bilirubin (NEGATIVE) Urine Urobilinogen (<1 E.U./dL) E.U./dL Ur Leukocyte Esterase (NEGATIVE) Guy/uL Urine RBC (0-2) /hpf Urine WBC (0-6) /hpf Ur Epithelial Cells (0-5) /hpf 11/02/17 11/02/17 11/01/17 Range/Units 02:56 00:30 23:35 WBC (4.5-11.0) 10^3/ul RBC (3.5-6.1) 10^6/uL Hgb (12.0-16.0) g/dL Hct (36.0-48.0) % MCV (80.0-105.0) fl MCH (25.0-35.0) pg MCHC (31.0-37.0) g/dl RDW (11.5-14.5) % Plt Count (120.0-450.0) 10^3/uL MPV (7.0-11.0) fl Gran % (50.0-68.0) % Lymph % (Auto) (22.0-35.0) % [place] % (Auto) (1.0-6.0) % Eos % (Auto) (1.5-5.0) % Baso % (Auto) (0.0-3.0) % Gran # (1.4-6.5) Lymph # (1.2-3.4) [place] # (0.1-0.6) Eos # (0.0-0.7) Baso # (0.0-2.0) K/mm3 APTT (25.1-36.5) Seconds Sodium 138 (132-148) mmol/L Potassium 4.5 (3.6-5.0) mmol/L Chloride 104 (98-107) mmol/L Carbon Dioxide 29 (21-33) mmol/L Anion Gap 11 (10-20) BUN 10 (7-21) mg/dL Creatinine 0.7 (0.7-1.2) mg/dl Est GFR ( Amer) > 60 Est GFR (Non-Af Amer) > 60 Random Glucose 116 H (70-110) mg/dL Calcium 9.7 (8.4-10.5) mg/dL Phosphorus 3.2 (2.5-4.5) mg/dL Magnesium 2.0 (1.7-2.2) mg/dL Total Bilirubin 0.5 (0.2-1.3) mg/dL AST 40 H D (14-36) U/L ALT 39 (7-56) U/L Alkaline Phosphatase 81 (38-126) U/L Troponin I 1.11 H* 1.18 H* D ng/mL Total Protein 6.9 (5.8-8.3) g/dL Albumin 3.9 (3.0-4.8) g/dL Globulin 3.0 gm/dL Albumin/Globulin Ratio 1.3 (1.1-1.8) Thyroxine (T4) (5.5-11.0) ug/dL TSH 3rd Generation (0.46-4.68) mIU/mL Urine Color Yellow (YELLOW) Urine Appearance Clear (CLEAR) Urine pH 6.5 (4.7-8.0) Ur Specific [place] 1.015 (1.005-1.035) Urine Protein Negative (<30 mg/dL) mg/dL Urine Glucose (UA) Negative (NEGATIVE) mg/dL Urine Ketones 15 H (NEGATIVE) mg/dL Urine Blood Trace-intact H (NEGATIVE) Urine Nitrate Negative (NEGATIVE) Urine Bilirubin Negative (NEGATIVE) Urine Urobilinogen 0.2 (<1 E.U./dL) E.U./dL Ur Leukocyte Esterase Negative (NEGATIVE) Guy/uL Urine RBC 0 - 2 (0-2) /hpf Urine WBC 0 - 2 (0-6) /hpf Ur Epithelial Cells 0 - 2 (0-5) /hpf Laboratory Results - last 24 hr 11/01/17 11/02/17 11/02/17 23:35 00:30 02:56 WBC RBC Hgb Hct MCV MCH MCHC RDW Plt Count MPV Gran % Lymph % (Auto) [place] % (Auto) Eos % (Auto) Baso % (Auto) Gran # Lymph # [place] # Eos # Baso # APTT Sodium 138 Potassium 4.5 Chloride 104 Carbon Dioxide 29 Anion Gap 11 BUN 10 Creatinine 0.7 Est GFR ( Amer) > 60 Est GFR (Non-Af Amer) > 60 Random Glucose 116 H Calcium 9.7 Phosphorus 3.2 Magnesium 2.0 Total Bilirubin 0.5 AST 40 H D ALT 39 Alkaline Phosphatase 81 Troponin I 1.18 H* D 1.11 H* Total Protein 6.9 Albumin 3.9 Globulin 3.0 Albumin/Globulin Ratio 1.3 Thyroxine (T4) TSH 3rd Generation Urine Color Yellow Urine Appearance Clear Urine pH 6.5 Ur Specific [place] 1.015 Urine Protein Negative Urine Glucose (UA) Negative Urine Ketones 15 H Urine Blood Trace-intact H Urine Nitrate Negative Urine Bilirubin Negative Urine Urobilinogen 0.2 Ur Leukocyte Esterase Negative Urine RBC 0 - 2 Urine WBC 0 - 2 Ur Epithelial Cells 0 - 2 11/02/17 11/02/17 11/02/17 02:56 02:56 02:56 WBC 5.1 RBC 4.82 Hgb 14.8 Hct 45.2 MCV 93.8 MCH 30.7 MCHC 32.7 RDW 12.4 Plt Count 117 L MPV 12.0 H Gran % 67.3 Lymph % (Auto) 13.8 L [place] % (Auto) 18.7 H Eos % (Auto) 0.0 L Baso % (Auto) 0.2 Gran # 3.43 Lymph # 0.7 L [place] # 1.0 H Eos # 0.0 Baso # 0.01 APTT 71.0 H Sodium Potassium Chloride Carbon Dioxide Anion Gap BUN Creatinine Est GFR ( Amer) Est GFR (Non-Af Amer) Random Glucose Calcium Phosphorus Magnesium Total Bilirubin AST ALT Alkaline Phosphatase Troponin I Total Protein Albumin Globulin Albumin/Globulin Ratio Thyroxine (T4) 10.9 TSH 3rd Generation 0.19 L Urine Color Urine Appearance Urine pH Ur Specific [place] Urine Protein Urine Glucose (UA) Urine Ketones Urine Blood Urine Nitrate Urine Bilirubin Urine Urobilinogen Ur Leukocyte Esterase Urine RBC Urine WBC Ur Epithelial Cells EKG/Cardiology Studies: Cardiology / EKG Studies 11/02/17 00:47 EKG [ELECTROCARDIOGRAM] Stat Comment: Reason For Exam: elevated troponin Critical Care Progress Note - Nutrition Nutrition: Nutrition Category Date Time Status Regular Diet [DIET] Diets 11/02/17 Breakfast Ordered Assessment/Plan - Assessment and Plan (Free Text) Plan: 82 year old female with a past medical history of hypothyroidism, symptomatic bradycardia s/p permanent pacemaker placement (01/02/17), normal nuclear stress test in 02/2017, sleep apnea (on CPAP) with elevated troponins and NSTEMI Neuro: AAO x 3 Answers question appopriately Maintain normothermia Pulm: Maintain SaO2 > 90% Normal saturation on room air currently Maintain HOB > 30 degrees f/u V/Q scan CXR: no active disease Brovana, Pulmicort, Xopenex Tessalon perles Cardio: troponins 0.30, 1.18, 1.11 EKG: inverted T waves - new finding Aspirin, Atorvastatin, Plavix, Metoprolol, Zestril, Morphine Cardiac Cath today f/u V/Q scan f/u ECHO Cardiology consult, Dr. Dela Cruz Heparin Drip NS 50 cc/hr GI: Protonix NPO Renal: NS 50 cc/hr Monitor and replete electrolytes PRN Endo: Maintsin euglycemia 140-180 Levothyroxine Heme: Heparin drip SCDs ID: afebrile, no leukocytosis Discussed with Dr. Danie Hensley PGY1 <Jourdan Helton - Last Filed: 11/02/17 13:06> CCU Objective - Vital Signs / Intake & Output Intake and Output (Last 8hrs): Intake & Output 11/01/17 11/02/17 11/02/17 22:59 06:59 14:59 Intake Total 42 Output Total 300 Balance -258 Intake: IV 42 Right Hand 42 Oral 0 Output: Urine 300 Urine, Voided 300 Stool 0 Other: # Voids Urine, Voided 1 - Medications Active Medications: Active Medications Generic Name Dose Route Start Last Admin Trade Name Freq PRN Reason Stop Dose Admin Arformoterol Tartrate 15 mcg 11/02/17 20:00 Brovana IH [id number] [facility] Aspirin 81 mg 11/02/17 10:00 11/02/17 09:39 Aspirin Chewable PO Not Given DAILY MELVIN Atorvastatin Calcium 80 mg 11/02/17 10:10 Lipitor PO HS MELVIN Benzonatate 100 mg 11/02/17 10:00 11/02/17 12:02 Tessalon Perles PO Not Given TID MELVIN Budesonide 0.5 mg 11/02/17 20:00 Pulmicort Respules IH [id number] MELVIN Sodium Chloride 1,000 mls @ 50 mls/hr 11/02/17 10:00 11/02/17 12:16 Sodium Chloride 0.9% IV 11/02/17 23:59 50 mls/hr .Q20H MELVIN Administration Levothyroxine Sodium 50 mcg 11/02/17 07:30 11/02/17 12:02 Synthroid PO Not Given ACB MELVIN Lisinopril 5 mg 11/02/17 10:15 11/02/17 12:03 Zestril PO Not Given DAILY MELVIN Metoprolol Tartrate 25 mg 11/01/17 21:14 11/02/17 12:03 Lopressor PO Not Given BID [facility] Morphine Sulfate 0.5 mg 11/01/17 21:18 Morphine IVP Q4H PRN Pain, moderate (4-7) Pantoprazole Sodium 40 mg 11/02/17 10:00 11/02/17 12:03 Protonix Inj IVP Not Given DAILY MELVIN - Patient Studies Lab Studies: Lab Studies 11/02/17 11/02/17 11/02/17 Range/Units 02:56 02:56 02:56 WBC 5.1 (4.5-11.0) 10^3/ul RBC 4.82 (3.5-6.1) 10^6/uL Hgb 14.8 (12.0-16.0) g/dL Hct 45.2 (36.0-48.0) % MCV 93.8 (80.0-105.0) fl MCH 30.7 (25.0-35.0) pg MCHC 32.7 (31.0-37.0) g/dl RDW 12.4 (11.5-14.5) % Plt Count 117 L (120.0-450.0) 10^3/uL MPV 12.0 H (7.0-11.0) fl Gran % 67.3 (50.0-68.0) % Lymph % (Auto) 13.8 L (22.0-35.0) % [place] % (Auto) 18.7 H (1.0-6.0) % Eos % (Auto) 0.0 L (1.5-5.0) % Baso % (Auto) 0.2 (0.0-3.0) % Gran # 3.43 (1.4-6.5) Lymph # 0.7 L (1.2-3.4) [place] # 1.0 H (0.1-0.6) Eos # 0.0 (0.0-0.7) Baso # 0.01 (0.0-2.0) K/mm3 APTT 71.0 H (25.1-36.5) Seconds Sodium (132-148) mmol/L Potassium (3.6-5.0) mmol/L Chloride (98-107) mmol/L Carbon Dioxide (21-33) mmol/L Anion Gap (10-20) BUN (7-21) mg/dL Creatinine (0.7-1.2) mg/dl Est GFR ( Amer) Est GFR (Non-Af Amer) Random Glucose (70-110) mg/dL Calcium (8.4-10.5) mg/dL Phosphorus (2.5-4.5) mg/dL Magnesium (1.7-2.2) mg/dL Total Bilirubin (0.2-1.3) mg/dL AST (14-36) U/L ALT (7-56) U/L Alkaline Phosphatase (38-126) U/L Troponin I ng/mL Total Protein (5.8-8.3) g/dL Albumin (3.0-4.8) g/dL Globulin gm/dL Albumin/Globulin Ratio (1.1-1.8) Thyroxine (T4) 10.9 (5.5-11.0) ug/dL TSH 3rd Generation 0.19 L (0.46-4.68) mIU/mL Urine Color (YELLOW) Urine Appearance (CLEAR) Urine pH (4.7-8.0) Ur Specific [place] (1.005-1.035) Urine Protein (<30 mg/dL) mg/dL Urine Glucose (UA) (NEGATIVE) mg/dL Urine Ketones (NEGATIVE) mg/dL Urine Blood (NEGATIVE) Urine Nitrate (NEGATIVE) Urine Bilirubin (NEGATIVE) Urine Urobilinogen (<1 E.U./dL) E.U./dL Ur Leukocyte Esterase (NEGATIVE) Guy/uL Urine RBC (0-2) /hpf Urine WBC (0-6) /hpf Ur Epithelial Cells (0-5) /hpf 11/02/17 11/02/17 11/01/17 Range/Units 02:56 00:30 23:35 WBC (4.5-11.0) 10^3/ul RBC (3.5-6.1) 10^6/uL Hgb (12.0-16.0) g/dL Hct (36.0-48.0) % MCV (80.0-105.0) fl MCH (25.0-35.0) pg MCHC (31.0-37.0) g/dl RDW (11.5-14.5) % Plt Count (120.0-450.0) 10^3/uL MPV (7.0-11.0) fl Gran % (50.0-68.0) % Lymph % (Auto) (22.0-35.0) % [place] % (Auto) (1.0-6.0) % Eos % (Auto) (1.5-5.0) % Baso % (Auto) (0.0-3.0) % Gran # (1.4-6.5) Lymph # (1.2-3.4) [place] # (0.1-0.6) Eos # (0.0-0.7) Baso # (0.0-2.0) K/mm3 APTT (25.1-36.5) Seconds Sodium 138 (132-148) mmol/L Potassium 4.5 (3.6-5.0) mmol/L Chloride 104 (98-107) mmol/L Carbon Dioxide 29 (21-33) mmol/L Anion Gap 11 (10-20) BUN 10 (7-21) mg/dL Creatinine 0.7 (0.7-1.2) mg/dl Est GFR ( Amer) > 60 Est GFR (Non-Af Amer) > 60 Random Glucose 116 H (70-110) mg/dL Calcium 9.7 (8.4-10.5) mg/dL Phosphorus 3.2 (2.5-4.5) mg/dL Magnesium 2.0 (1.7-2.2) mg/dL Total Bilirubin 0.5 (0.2-1.3) mg/dL AST 40 H D (14-36) U/L ALT 39 (7-56) U/L Alkaline Phosphatase 81 (38-126) U/L Troponin I 1.11 H* 1.18 H* D ng/mL Total Protein 6.9 (5.8-8.3) g/dL Albumin 3.9 (3.0-4.8) g/dL Globulin 3.0 gm/dL Albumin/Globulin Ratio 1.3 (1.1-1.8) Thyroxine (T4) (5.5-11.0) ug/dL TSH 3rd Generation (0.46-4.68) mIU/mL Urine Color Yellow (YELLOW) Urine Appearance Clear (CLEAR) Urine pH 6.5 (4.7-8.0) Ur Specific [place] 1.015 (1.005-1.035) Urine Protein Negative (<30 mg/dL) mg/dL Urine Glucose (UA) Negative (NEGATIVE) mg/dL Urine Ketones 15 H (NEGATIVE) mg/dL Urine Blood Trace-intact H (NEGATIVE) Urine Nitrate Negative (NEGATIVE) Urine Bilirubin Negative (NEGATIVE) Urine Urobilinogen 0.2 (<1 E.U./dL) E.U./dL Ur Leukocyte Esterase Negative (NEGATIVE) Guy/uL Urine RBC 0 - 2 (0-2) /hpf Urine WBC 0 - 2 (0-6) /hpf Ur Epithelial Cells 0 - 2 (0-5) /hpf Laboratory Results - last 24 hr 11/01/17 11/02/17 11/02/17 23:35 00:30 02:56 WBC RBC Hgb Hct MCV MCH MCHC RDW Plt Count MPV Gran % Lymph % (Auto) [place] % (Auto) Eos % (Auto) Baso % (Auto) Gran # Lymph # [place] # Eos # Baso # APTT Sodium 138 Potassium 4.5 Chloride 104 Carbon Dioxide 29 Anion Gap 11 BUN 10 Creatinine 0.7 Est GFR ( Amer) > 60 Est GFR (Non-Af Amer) > 60 Random Glucose 116 H Calcium 9.7 Phosphorus 3.2 Magnesium 2.0 Total Bilirubin 0.5 AST 40 H D ALT 39 Alkaline Phosphatase 81 Troponin I 1.18 H* D 1.11 H* Total Protein 6.9 Albumin 3.9 Globulin 3.0 Albumin/Globulin Ratio 1.3 Thyroxine (T4) TSH 3rd Generation Urine Color Yellow Urine Appearance Clear Urine pH 6.5 Ur Specific [place] 1.015 Urine Protein Negative Urine Glucose (UA) Negative Urine Ketones 15 H Urine Blood Trace-intact H Urine Nitrate Negative Urine Bilirubin Negative Urine Urobilinogen 0.2 Ur Leukocyte Esterase Negative Urine RBC 0 - 2 Urine WBC 0 - 2 Ur Epithelial Cells 0 - 2 11/02/17 11/02/17 11/02/17 02:56 02:56 02:56 WBC 5.1 RBC 4.82 Hgb 14.8 Hct 45.2 MCV 93.8 MCH 30.7 MCHC 32.7 RDW 12.4 Plt Count 117 L MPV 12.0 H Gran % 67.3 Lymph % (Auto) 13.8 L [place] % (Auto) 18.7 H Eos % (Auto) 0.0 L Baso % (Auto) 0.2 Gran # 3.43 Lymph # 0.7 L [place] # 1.0 H Eos # 0.0 Baso # 0.01 APTT 71.0 H Sodium Potassium Chloride Carbon Dioxide Anion Gap BUN Creatinine Est GFR ( Amer) Est GFR (Non-Af Amer) Random Glucose Calcium Phosphorus Magnesium Total Bilirubin AST ALT Alkaline Phosphatase Troponin I Total Protein Albumin Globulin Albumin/Globulin Ratio Thyroxine (T4) 10.9 TSH 3rd Generation 0.19 L Urine Color Urine Appearance Urine pH Ur Specific [place] Urine Protein Urine Glucose (UA) Urine Ketones Urine Blood Urine Nitrate Urine Bilirubin Urine Urobilinogen Ur Leukocyte Esterase Urine RBC Urine WBC Ur Epithelial Cells EKG/Cardiology Studies: Cardiology / EKG Studies 11/02/17 00:47 EKG [ELECTROCARDIOGRAM] Stat Comment: Reason For Exam: elevated troponin Critical Care Progress Note - Nutrition Nutrition: Nutrition Category Date Time Status Regular Diet [DIET] Diets 11/02/17 Breakfast Ordered Assessment/Plan - Assessment and Plan (Free Text) Plan: Patient seen and examined on rounds with resident, agree with note with following additions/exceptions: Patient is 82yo female with past medical history of hypothyroidism, symptomatic bradycardia s/p permanent pacemaker placement (01/02/17), normal nuclear stress test in 02/2017, sleep apnea (on CPAP) with elevated troponins, s/p cardiac cath with no intervention, V/Q scan low probability for PE. Currently afebrile, HD stable, comfortable, chest pain free. Recommend: - supp o2 as needed, CPAP at night - follow up cultures - Brovana, Pulmicort, Xopenex - Tessalon aaron - monitor electrolytes - follow up cardiology - check TSH, cont with Levothyroxine - DC heparin drip - ASA, Statin, BB - GI ppx - DVT ppx - Stable, transfer to telemetry
--- NOTE | 2017-11-02 12:12 | NM ---
COMPARISON: 11/01/2017 portable chest TECHNIQUE: 30.3 mCi technetium 99-m DTPA aerosol. 3.0 mCI technetium 99-m MAA administered intravenously. FINDINGS: VENTILATION COMPONENT: Normal. PERFUSION COMPONENT: Normal. IMPRESSION: Lowprobability ventilation perfusion scan for pulmonary embolism.
--- NOTE | 2017-11-02 14:42 | CARD ---
APPROVED REPORT EXAM: Two-dimensional and M-mode echocardiogram with Doppler and color Doppler. INDICATION NEAR SYNCOPE 2D DIMENSIONS Left Atrium (2D)3.8 (1.6-4.0cm)IVSd1.0 (0.7-1.1cm) LVDd4.4 (3.9-5.9cm)LVOT Diameter1.8 (1.8-2.4cm) PWd1.4 (0.7-1.1cm) M-Mode DIMENSIONS Aortic Root2.80 (2.2-3.7cm)Aortic Cusp Exc.1.20 (1.5-2.0cm) Aortic Valve AoV Peak Txqdikux918.0cm/sAoV VTI51.7cmAO Peak GR.29mmHg LVOT Peak Mxbxbobd300.0cm/sLVOT VTI28.60cmAO Mean GR.15mmHg ALVIN (VMAX)1.36jl2BBS (VTI)1.23kf9BU P 1/2 Shgl761sk Mitral Valve MV E Dhaomqot37.3cm/sMV A Ljcfzdti470.0cm/sMV WGP325ug E/A ratio0.7MVA (PHT)1.95cm2 TDI Lateral E' Peak V8.09cm/sMedial E' Peak V6.14cm/sE/Lateral E'11.7 E/Medial E'15.4 Pulmonary Valve PV Peak Evcbqwku55.1cm/sPV Peak Grad.2mmHg Tricuspid Valve TR Peak Udhwvxjl717mi/sRAP [id number] Peak Gr.42mmHg [id number] LEFT VENTRICLE The left ventricle is normal size. There is mild concentric left ventricular hypertrophy. Proximal septal thickening is noted. The systolic function is moderately impaired.EF-35% Regional wall motion abnormalities noted. Hyperdynamic Basal contraction with Severe Apical edward-lateral HK Transmitral Doppler flow pattern is Grade III-reversible restrictive diastolic dysfunction. No left ventricle thrombus noted on this study. There is no ventricular septal defect visualized. There is no left ventricular aneurysm. There is no mass noted in the left ventricle. RIGHT VENTRICLE The right ventricle is normal size. There is normal right ventricular wall thickness. The right ventricular systolic function is normal. ATRIA The left atrium size is normal. The right atrium size is normal. The interatrial septum is intact with no evidence for an atrial septal defect. AORTIC VALVE The aortic valve is calcified and displays decreased opening. There is mild aortic regurgitation. Mild As Vs Aortic Sclerisis. There is no aortic valvular vegetation. MITRAL VALVE The mitral valve is calcified and displays decreased opening. Mitral annular calcification is moderate. Mitral regurgitation is mild. There is mild mitral valve stenosis. There is no evidence of mitral valve prolapse. TRICUSPID VALVE The tricuspid valve leaflets are thickened , but open well. There is mild to moderate tricuspid regurgitation.RVSP-52 mmof Hg. There is mild to moderate pulmonary hypertension. There is no tricuspid valve stenosis. There is no tricuspid valve prolapse or vegetation. PULMONIC VALVE The pulmonic valve is not well visualized. GREAT VESSELS The aortic root is normal in size. The ascending aorta is normal in size. The pulmonary artery is normal. The IVC is normal in size and collapses >50% with inspiration. PERICARDIAL EFFUSION There is no pleural effusion. There is no pericardial effusion. <Conclusion> The left ventricle is normal size. There is mild concentric left ventricular hypertrophy. Proximal septal thickening is noted. There is mild concentric left ventricular hypertrophy. Proximal septal thickening is noted. Regional wall motion abnormalities noted. Hyperdynamic Basal contraction with Severe Apical edward-lateral HK There is mild aortic regurgitation. Mitral regurgitation is mild. There is mild to moderate tricuspid regurgitation.RVSP-52 mmof Hg. There is mild to moderate pulmonary hypertension. The IVC is normal in size and collapses >50% with inspiration. There is no pericardial effusion. S/p NSTEMI, can not R/o Takotsubo Cardiomyopathy, co relate Clinically.
--- NOTE | 2017-11-02 14:47 | CARD ---
APPROVED REPORT Procedure(s) performed: Left Heart Catheterization HISTORY The patient is a 82 year-old female with a history of : chronic lung disease, hypertension , dyslipidemia , Admitted with NSTEMI/ ACS and keep rising Troponin, first 0.3 then 1.18 with Chest pain. INDICATION The indication(s) include : non-STEMI . CASE TECHNIQUE The patient was brought emergently to the Cardiac Catheterization Laboratory in a fasting state and was prepped and draped in a sterile manner. The right femoral groin was infiltrated with 2% Lidocaine subcutaneous anesthesia. A 6 Fr x 11 cm Dolores sheath was inserted into the right femoral artery without difficulty. Coronary angiography was performed using coronary diagnostic catheters. The left coronary system was accessed and visualized with a Diagnostic ,6 Fr JL 3.5 catheter. The right coronary system was accessed and visualized with a Diagnostic ,5 Fr JR 3.5 catheter. The left ventricle was accessed and visualized with a 5 Fr Pigtail 145 (Angled) catheter. Left ventricular/Aortic Valve gradient assessed on pullback. Left ventriculogram was performed in [place] projection. Closure device was deployed with a 6 Fr / 7 Fr MynxGrip without any complications. The patient tolerated the procedure well and there were no complications associated with the procedure. Vessel Analysis The patient's coronary anatomy is right dominant. The left main coronary artery is a medium size vessel with intimal irregularities. The left anterior descending artery is a medium size vessel with diffuse calcification noted throughout this vessel and without significant stenosis. There is a 55% stenosis in the very distal segment. like a thread but no focal flow limiting stenosis The first diagonal branch is a small size vessel with diffuse calcification noted throughout this vessel and without significant stenosis. The second diagonal branch is a small size vessel with diffuse calcification noted throughout this vessel and without significant stenosis. The circumflex artery is a medium size vessel . The first obtuse marginal branch is a small size vessel with intimal irregularities and without significant stenosis. very tortous The second obtuse marginal branch is a medium size vessel with diffuse calcification noted throughout this vessel and without significant stenosis. very tortous The right coronary artery is a large size vessel with diffuse calcification noted throughout this vessel and without significant stenosis. The right posterior descending artery is a medium size vessel with diffuse calcification noted throughout this vessel and without significant stenosis. Left Ventricle The left ventricle is normal in size with normal contractility. The left ventricular ejection fraction is estimated to be 35-40%. The left ventricular end diastolic pressure is 18 mmHg. There was no gradient across the aortic valve upon pullback. Conclusion Non obstructive CAD, limited to very Distal LAD diffusely diseased 55% like a thread, but no focal flow limiting stenosis. Preserved LV Fx. EF-35-40%, EDP-18 mmof Hg. Recommendations Aggressive Medical Therapy Consider V/Q scan to look for other source For Troponin. Echo to assess Wall motion abnormality and EF% CC; Drs. Garza/ Rosita
[2017-11-02 15:22] LABS: BASO # 0.01 K/mm3 (0.0-2.0); BASO % 0.1 % (0.0-3.0); GRAN # 7.25 (1.4-6.5); GRAN % 79.6 % (50.0-68.0); HEMOGLOBIN 14.3 g/dL (12.0-16.0); LYMPH # 0.5 (1.2-3.4); LYMPH % 5.9 % (22.0-35.0); MEAN CELL VOLUME 94.8 fl (80.0-105.0); MEAN CORPUSCULAR HEMOGLOBIN 30.7 pg (25.0-35.0); MEAN CORPUSCULAR HGB CONC 32.4 g/dl (31.0-37.0); MEAN PLATELET VOLUME 12.3 fl (7.0-11.0); MONO # 1.3 (0.1-0.6); MONO % 14.4 % (1.0-6.0); RBC 4.66 10^6/uL (3.5-6.1); RED CELL DISTRIBUTION WIDTH 12.7 % (11.5-14.5); WHITE BLOOD COUNT 9.1 10^3/ul (4.5-11.0)
[2017-11-02 15:31] LABS: BLOOD UREA NITROGEN 11 mg/dL (7-21); CALCIUM 9.2 mg/dL (8.4-10.5); GFR AFRICAN-AMERICAN > 60; GFR NON-AFRICAN AMERICAN > 60
--- NOTE | 2017-11-02 16:11 | CON ---
DATE: CARDIOLOGY PHYSICIAN: Kelsey Dela Cruz MD REASON FOR CONSULTATION: Followup chest pain, upper respiratory tract infection, non-ST segment myocardial infarction. BRIEF CLINICAL HISTORY: This is an 82-year-old female with past medical history significant for hypothyroidism, history of symptomatic bradycardia, high-grade AV block, came in with complaint of cough and chest pain and tenderness behind the left breast and the epigastric area, but patient's first troponin was positive, second is keep on increasing 1.1, on heparin. Patient still feels some tightness in the chest with more tenderness in the chest as well. Possibly 2 kinds of chest pain, one is the patient had some tightness possibly secondary to acute coronary syndrome. In addition, patient had upper respiratory tract infection, and tenderness and musculoskeletal chest pain as well. PAST MEDICAL HISTORY: Significant for hypertension, hypothyroidism, hyperlipidemia, history of high-grade AV block, status post single chamber VVI pacemaker, was placed on 01/02/2017, [employer]. History of COPD, history of obstructive sleep apnea also, being followed by Dr. Plummer. Previous cardiac workup as follows; patient had permanent pacemaker on 01/02/2017, when the patient presented in a Mobitz type 2 high-grade AV block, single chamber VVI [employer] Sensia SR, placed on 01/02/2017. Patient was complaining and wanted to make sure that there is no blocking in artery. Patient had a stress test done on 02/22/2017, eight weeks after the pacemaker was placed, that showed essentially normal myocardial perfusion study, ejection fraction 52%. Patient had echocardiography on 01/03/2017, that showed ejection fraction 65%, feru-zw-jednpuew aortic regurgitation and moderate valvular aortic regurgitation, valvular area of 1.2 to 1.4 cm2, mitral regurgitation is jrvw-cr-xgkyuvlw, moderate tricuspid regurgitation, RV systolic pressure of 67. REVIEW OF SYSTEMS: As per HPI. CURRENT MEDICATIONS: Patient is taking at home; Singulair, Zestril, levothyroxine, cephalexin, albuterol inhaler ALLERGIES: CAT DANDER. PHYSICAL EXAMINATION: VITAL SIGNS: As follows, temperature afebrile, heart rate 73, blood pressure 131/73. HEENT: PERRLA. Intact. NECK: Supple. No carotid bruit or thyromegaly. CHEST: Clear to auscultation. HEART: S1 and S2 regular. ABDOMEN: Soft. EXTREMITIES: Clubbing and cyanosis negative. LABORATORY DATA: WBC 5.4, hemoglobin 14.2, hematocrit 45.2, platelet count 117. Chemistry shows sodium 130, potassium 4.5, chloride 104, carbon dioxide 29, anion gap of 11, BUN 10, creatinine 0.7. Troponin 0.3, 0.18, 0.11. EKG shows normal sinus, T-inversion, II, III, aVF and V5, V6, consistent with possible subendocardial ischemia. IMPRESSION: Nrl-WA-skldhfh myocardial infarction, coronary artery disease, hypertension, hyperlipidemia, hypothyroidism, chronic obstructive pulmonary disease, obstructive sleep apnea, acute bronchitis possibly and tenderness in the chest. Two kinds of chest pain, one is tenderness in the chest, second is a hzr-VH-tpynwxy myocardial infarction, pain from the bch-LG-jxctxed myocardial infarction or ischemia. RECOMMENDATIONS: Patient is already on heparin. We will stop the heparin. Risks, benefits, and alternatives were discussed with the patient, the patient agrees; we will proceed with cardiac catheterization. We will continue Plavix, patient was loaded last night 300 mg. We will give 75 of Plavix, and aspirin. I will take to the slab worker. Further recommendation after the cardiac catheterization. We will get lipid profile, TSH, hemoglobin A1c. Thank you Dr. Garza for providing the opportunity in taking care of the patient, Jaelyn Cain. Kelsey Dela Cruz MD cc: Letha Garza MD
--- NOTE | 2017-11-02 17:55 | CARD ---
APPROVED REPORT EKG Measurement Heart [id number] <Conclusion> Normal sinus rhythm Right axis deviation ST & T wave abnormality, consider inferior ischemia ST & T wave abnormality, consider anterolateral ischemia Prolonged QT Abnormal ECG
--- NOTE | 2017-11-02 17:57 | CARD ---
APPROVED REPORT EKG Measurement Heart [id number] <Conclusion> Normal sinus rhythm Left posterior fascicular block Cannot rule out Anterior infarct, age undetermined T wave abnormality, consider inferolateral ischemia Abnormal ECG
--- NOTE | 2017-11-02 17:57 | CARD ---
APPROVED REPORT EKG Measurement Heart [id number] <Conclusion> Normal sinus rhythm Right atrial enlargement Right axis deviation Cannot rule out Anterior infarct, age undetermined T wave abnormality, consider inferolateral ischemia Abnormal ECG
[2017-11-02] MEDS: Budesonide 0.5 mg/2 ml Inhal Susp UD IH SCH (21:55)
[2017-11-02] MEDS: Arformoterol 15 mcg/2 ml Inh Sol IH SCH (21:58)
--- NOTE | 2017-11-03 04:56 | HP ---
HISTORY OF PRESENT ILLNESS: The patient is 82 years old, who came to emergency room because of epigastric pain because of cough, congestion. I got a call earlier in office that she is having cough, congestion, sneezing, but by the evening, she states she was having some nausea with chest tightness and she states "I was not feeling well at all." She was prescribed Claritin and cough medication, but she states she never took it. She denies any diaphoresis. No history of fever, however, she did complain of nausea and vomiting. PAST MEDICAL HISTORY: Significant for: 1. Hypothyroidism. 2. Hypertension. 3. History of symptomatic bradycardia and the patient has pacemaker since then. 4. History of COPD. 5. History of obstructive sleep apnea. ALLERGIES: SHE IS ALLERGIC TO CAT DANDRUFF. MEDICATION AT HOME: She is on Singulair 10 mg daily, lisinopril 5 mg daily, levothyroxine 50 mcg daily, Keflex 500 three times a day, and nebulizer treatment. SOCIAL HISTORY: Denies smoking, drinking or alcohol use. REVIEW OF SYSTEM: Complain of feeling nauseous, epigastric discomfort. PHYSICAL EXAMINATION: GENERAL: She is awake, alert, oriented, communicative. VITAL SIGNS: She is afebrile, pulse 74, respiration 22, blood pressure 110/66. LUNGS: Bilateral good airflow. No rhonchi or crackle. HEART: S1, S2 audible. ABDOMEN: Soft, nontender. No rebound. No guarding. NEUROLOGIC: The patient is awake, alert, oriented, able to communicate. LABORATORY EXAM: WBC 9.1, hemoglobin 14, hematocrit 44, platelet 99. Chemistry; sodium 138, potassium 4.8, chloride 102, CO2 of 27, BUN 11, creatinine 0.7, blood sugar of 135. Troponin initial was 1.18, followup is 1.11. TSH is 0.19. Urinalysis unremarkable. Flu test is negative. ASSESSMENT AND PLAN: 1. Chest pain, status post cardiac catheterization and all coronaries are clear. 2. Status post sinus bradycardia and had pacemaker placement. 3. Hypertension. 4. Hyperlipidemia. 5. Hypothyroidism. PLAN: The patient is currently stable. She will be transferred to TCU. We will continue her on aspirin. Continue her on carvedilol, Lasix, atorvastatin, and famotidine. She is on Protonix, we will continue that. Continue on levothyroxine and we will reevaluate the patient in a.m. If she is stable, we will make discharge plan. Letha Garza MD
[2017-11-03 06:38] LABS: BASO # 0.01 K/mm3 (0.0-2.0); BASO % 0.2 % (0.0-3.0); EOS % 0.2 % (1.5-5.0); GRAN # 3.89 (1.4-6.5); GRAN % 62.1 % (50.0-68.0); HEMOGLOBIN 14.4 g/dL (12.0-16.0); LYMPH # 1.2 (1.2-3.4); LYMPH % 19.6 % (22.0-35.0); MEAN CELL VOLUME 93.9 fl (80.0-105.0); MEAN CORPUSCULAR HEMOGLOBIN 30.3 pg (25.0-35.0); MEAN CORPUSCULAR HGB CONC 32.3 g/dl (31.0-37.0); MEAN PLATELET VOLUME 12.1 fl (7.0-11.0); MONO # 1.1 (0.1-0.6); MONO % 17.9 % (1.0-6.0); RBC 4.75 10^6/uL (3.5-6.1); RED CELL DISTRIBUTION WIDTH 12.7 % (11.5-14.5); WHITE BLOOD COUNT 6.3 10^3/ul (4.5-11.0)
[2017-11-03 07:28] LABS: ALB/GLOB RATIO 1.2 (1.1-1.8); ALBUMIN 3.3 g/dL (3.0-4.8); ALT/SGPT 32 U/L (7-56); AST/SGOT 33 U/L (14-36); BLOOD UREA NITROGEN 12 mg/dL (7-21); GFR AFRICAN-AMERICAN > 60; GFR NON-AFRICAN AMERICAN > 60; MAGNESIUM 1.8 mg/dL (1.7-2.2)
[2017-11-03] MEDS: Budesonide 0.5 mg/2 ml Inhal Susp UD IH SCH ×2 (07:39→20:08)
[2017-11-03] MEDS: Arformoterol 15 mcg/2 ml Inh Sol IH SCH ×2 (07:39→20:08)
[2017-11-03] MEDS: Levothyroxine 50 MCG TAB PO SCH (08:17)
[2017-11-03] MEDS ORDERED: Enoxaparin 40 mg Syringe SC SCH (10:00)
--- NOTE | 2017-11-03 10:40 | PN ---
DATE: 11/03/2017 REASON FOR CONSULTATION AND FOLLOWUP: Acute non ST-segment myocardial infarction, Takotsubo cardiomyopathy (apical ballooning cardiomyopathy/broken heart syndrome, AFib with new onset. SUBJECTIVE: The patient denies any chest pain. Denies any shortness of breath. Denies any palpitation. OBJECTIVE: GENERAL: Lying flat on the bed. No chest pain. VITAL SIGNS: As follows, temperature afebrile, heart rate 74, and blood pressure 110/66. HEENT: PERRLA. Extraocular muscles intact. NECK: Supple. No carotid bruits or thyromegaly. CHEST: Clear to auscultation. HEART: S1 and S2, regular. ABDOMEN: Soft. EXTREMITIES: Clubbing and cyanosis negative. LABORATORY DATA: Blood workup as follows, WBC 6.3, hemoglobin 14.4, hematocrit 44.6, platelet count 100. Chemistry shows sodium 134, potassium 3.8, chloride 103, carbon dioxide 25, anion gap of 11, BUN 12, creatinine 0.6. IMPRESSION: An 82-year-old female with past medical history significant for high-grade atrioventricular block, status post permanent pacemaker, admitted with chest pain, troponin positive going up, underwent cardiac catheterization that revealed essentially nonobstructive coronary artery disease, essentially normal coronaries. Echo shows consistent with Takotsubo syndrome, apical ballooning and hyperdynamic basal contraction of the base of the ventricle consistent with Takotsubo, apical ballooning/broken heart syndrome. This morning, the patient went into atrial fibrillation. RECOMMENDATIONS: We will start low-dose of Eliquis because the patient is 136 pound, so we will start low-dose of Eliquis. Discontinue Lovenox. Hold aspirin as well and start for AFib low-dose of verapamil. The plan is long-term and to reassess LV function by MUGA scan in 3 months. If remained low, consider ICD, but it is most likely the patient secondary to Takotsubo syndrome, will improve and bounce back LV function. Interim, continue lisinopril, Coreg, gentle Lasix. We will follow with you. Thank you Dr. Garza for providing the opportunity in taking care of the patient, Payton Christy. Kelsey Dela Cruz MD [facility] # [id number]
[2017-11-03] MEDS: cefTRIAXone 1 gm 1 GM/100 ML BAG IVPB SCH (17:33)
--- NOTE | 2017-11-03 18:24 | CARD ---
APPROVED REPORT EKG Measurement Heart [id number] <Conclusion> A Fib, PVCs vs aberrancy Rightward axis ST & Marked T wave abnormality, consider inferior and anterolateral ischemia Prolonged QT Abnormal ECG
--- NOTE | 2017-11-03 19:06 | PN ---
SUBJECTIVE: The patient is 82-year-old seen and examined, complained of chest discomfort, cough and congestion, had cardiac cath unremarkable. Complained of epigastric discomfort. PHYSICAL EXAMINATION: VITAL SIGNS: She is afebrile, pulse 70, respiration 19, and blood pressure 93/44. LUNGS: Bilateral good airflow. No rhonchi or crackles. HEART: S1 and S2 audible. ABDOMEN: Soft, nontender. No rebound. No guarding. NEUROLOGICAL: The patient is awake and alert, communicative, moves all extremities. LABORATORY DATA: WBC 6.3, hemoglobin 14, hematocrit 44, platelet 100. Chemistry; sodium 135, potassium 3.8, chloride 103, CO2 25, BUN 12, creatinine 0.6, blood sugar of 115, phosphorus is 1.9. Urinalysis is unremarkable. Blood culture, urine cultures are negative. ASSESSMENT: 1. Asthmatic bronchitis. 2. Chest pain, noncardiac with positive troponin. 3. Status post coronary artery disease with clear coronaries, no significant occlusion. 4. Episode of atrial fibrillation/flutter this morning. PLAN: We will continue the patient on carvedilol, she has been started on Eliquis and will continue on Lasix, continue on Lipitor, continue her on Pulmicort and Tessalon. I will start her on antibiotics and will reevaluate the patient in the a.m. and discharge plan for morning if she is stable. Letha Garza MD
[2017-11-04 06:59] LABS: BASO # 0.01 K/mm3 (0.0-2.0); BASO % 0.2 % (0.0-3.0); EOS % 0.7 % (1.5-5.0); GRAN # 3.33 (1.4-6.5); GRAN % 61.2 % (50.0-68.0); HEMOGLOBIN 13.3 g/dL (12.0-16.0); LYMPH # 1.1 (1.2-3.4); LYMPH % 20.7 % (22.0-35.0); MEAN CELL VOLUME 93.5 fl (80.0-105.0); MEAN CORPUSCULAR HEMOGLOBIN 29.8 pg (25.0-35.0); MEAN CORPUSCULAR HGB CONC 31.9 g/dl (31.0-37.0); MEAN PLATELET VOLUME 12.1 fl (7.0-11.0); MONO # 0.9 (0.1-0.6); MONO % 17.2 % (1.0-6.0); RBC 4.46 10^6/uL (3.5-6.1); RED CELL DISTRIBUTION WIDTH 12.5 % (11.5-14.5); WHITE BLOOD COUNT 5.5 10^3/ul (4.5-11.0)
[2017-11-04 07:20] LABS: ALB/GLOB RATIO 1.1 (1.1-1.8); ALBUMIN 3.2 g/dL (3.0-4.8); ALT/SGPT 39 U/L (7-56); AST/SGOT 29 U/L (14-36); BLOOD UREA NITROGEN 13 mg/dL (7-21); CALCIUM 9.2 mg/dL (8.4-10.5); GFR AFRICAN-AMERICAN > 60; GFR NON-AFRICAN AMERICAN > 60; MAGNESIUM 1.9 mg/dL (1.7-2.2)
[2017-11-04] MEDS ORDERED: Pantoprazole 40 mg EC Tab PO SCH (07:30)
[2017-11-04] MEDS: Budesonide 0.5 mg/2 ml Inhal Susp UD IH SCH (08:24)
[2017-11-04] MEDS: Arformoterol 15 mcg/2 ml Inh Sol IH SCH (08:24)
[2017-11-04] MEDS: Levothyroxine 50 MCG TAB PO SCH (08:39)
[2017-11-04] MEDS: cefTRIAXone 1 gm 1 GM/100 ML BAG IVPB SCH (09:42)
[2017-11-04 12:32] VITALS: PULSE 86; RESP 17; TEMP 98
[2017-11-04 13:25] VITALS: O2SAT 93
[2017-11-04 13:40] VITALS: BP 101/54
--- NOTE | 2017-11-05 05:09 | DS ---
HISTORY OF PRESENT ILLNESS: The patient is an 82-year-old who came to emergency room on 09/01; she was complaining of chest discomfort, epigastric discomfort, cough, and congestion. I called earlier in office and she started having cough and congestion. She was given Claritin with some cough medicine, but with no relief. So she came to ER on 11/01. She was found to have positive troponin, was taken to laboratory worker the next day. Has clear coronaries, does complain of cough and congestion. PHYSICAL EXAMINATION: VITAL SIGNS: She is afebrile, pulse 86, respirations 17, blood pressure 101/54. LUNGS: Bilateral fair airflow. No rhonchi or crackles. HEART: S1 and S2 audible. ABDOMEN: Soft, nontender. No rebound. No guarding. NEUROLOGIC: The patient is awake, alert, oriented, and communicative. She has a hematoma in her right groin that is not increasing in size. LABORATORY DATA: Cath report shows no occlusion. HOSPITAL COURSE: During ICU stay, the patient was found to have AFib/flutter. The was patient was started on verapamil and Eliquis, and it was explained to the patient in great length about the side effect of the medication. She understands and is willing to continue. ASSESSMENT: 1. Status post symptomatic bradycardia, status post pacemaker placement. 2. Hypertension. 3. Non-ST elevation myocardial infarction, but cardiac cath is negative. 4. Atrial fibrillation/flutter. PLAN: The patient is being discharged today. She is being discharged on Lipitor 10 mg at dinnertime, Eliquis 2.5 twice a day, Coreg 3.125 twice a day, verapamil 120 daily. She is on nebulizer treatment. We will continue levothyroxine. Lisinopril has been cut down to 2.5. She will continue Singulair and her inhalers. She will follow up in office next week. Letha Garza MD
== END 2017-11-04 14:03 | disposition home or self-care (01) | DRG 281 ==
LOC: ED 18:09 → ERH 21:30 → ICU 11-02 00:56 → 2RSO 11-03 13:52
PROVIDERS: ADMIT Internal Medicine; ATTEND Internal Medicine
DX: I21.4 Non-ST elevation (NSTEMI) myocardial infarction (principal); I51.81 Takotsubo syndrome; I42.9 Cardiomyopathy, unspecified; I48.91 Unspecified atrial fibrillation; I48.92 Unspecified atrial flutter; I08.3 Combined rheumatic disorders of mitral, aortic and tricuspid valves; J44.0 Chronic obstructive pulmonary disease with (acute) lower respiratory infection; I11.9 Hypertensive heart disease without heart failure; I25.10 Atherosclerotic heart disease of native coronary artery without angina pectoris; E03.9 Hypothyroidism, unspecified; E78.5 Hyperlipidemia, unspecified; G47.33 Obstructive sleep apnea (adult) (pediatric); I25.2 Old myocardial infarction; J06.9 Acute upper respiratory infection, unspecified; J20.9 Acute bronchitis, unspecified; J31.0 Chronic rhinitis; Z79.02 Long term (current) use of antithrombotics/antiplatelets; Z79.51 Long term (current) use of inhaled steroids; Z79.899 Other long term (current) drug therapy; Z90.710 Acquired absence of both cervix and uterus; Z95.0 Presence of cardiac pacemaker; Z96.659 Presence of unspecified artificial knee joint; H26.9 Unspecified cataract; M19.90 Unspecified osteoarthritis, unspecified site; R40.2412 Glasgow coma scale score 13-15, at arrival to emergency department

== ENCOUNTER 2018-01-15 18:24 | Emergency (ER) | payer MEDICARE, BC ==
[2018-01-15 18:39] VITALS: BMI 21.3
[2018-01-15 18:40] VITALS: BP 114/73; TEMP 97.8; O2SAT 96
[2018-01-15 18:44] VITALS: PULSE 77; RESP 18
== END 2018-01-15 19:12 | disposition left against medical advice (07) ==
LOC: ED 18:24
DX: Z02.89 Encounter for other administrative examinations (principal)

== ENCOUNTER 2018-01-30 16:05 | Emergency (ER) | payer MEDICARE, BC ==
[2018-01-30 16:05] VITALS: BMI 21.3
[2018-01-30 16:29] VITALS: RESP 18; TEMP 98
--- NOTE | 2018-01-30 17:08 | ED PDOC ---
Arrival/HPI - General Chief Complaint: Shortness Of Breath Time Seen by Provider: 01/30/18 16:23 Historian: Patient - History of Present Illness Narrative History of Present Illness (Text): 01/30/18 17:28 Pt is a 82 yr old female with history of hypothyroidism, CAD, and anxiety, presents today complaining of epigastric pain x 1 day without radiation. Reports that she started to have trouble breathing and chest pain last night and continued once she woke up. States she has a c-pap she is supposed to use but does not know how to put the mask on and is hoping that someone can help her with that today. Reports tshe took her medications today as directed and has no change in appetite, BM or urine. Denies fever, chills, n/v/d, back pain, GODINEZ, GIB or nay other complaints at this time. 01/30/18 17:31 Time/Duration: 24 hours Symptom Onset: Gradual Symptom Course: Unchanged Quality: Aching Severity Level: 2 Activities at Onset: Rest Context: Home Past Medical History - Provider Review Nursing Documentation Reviewed: Yes - Travel History Have you recently traveled outside [place] w/in the past 3 mons?: No - Infectious Disease Hx of Infectious Diseases: None - Reproductive Menopause: Yes - Cardiac Hx Hypertension: Yes Hx Pacemaker: Yes - Pulmonary Hx Asthma: Yes Hx Sleep Apnea: Yes - Neurological Hx Dizziness: Yes - HEENT Hx HEENT Disorder: Yes (rhinoplasty) Hx Cataracts: Yes (bilateral) Other/Comment: b/l hearing aides, eyeglasses - Renal Hx Renal Disorder: No - Endocrine/Metabolic Hx Hypothyroidism: Yes - Hematological/Oncological Hx Blood Disorders: No - Integumentary Other/Comment: left great toe fungus infection - Musculoskeletal/Rheumatological Hx Arthritis: Yes Hx Falls: No - Gastrointestinal Hx Gastrointestinal Disorders: Yes Hx Diverticulitis: Yes - Genitourinary/Gynecological Hx Genitourinary Disorders: No - Psychiatric Hx Psychophysiologic Disorder: No Hx Substance Use: No - Surgical History Hx Cardiac Catheterization: No Hx Hysterectomy: Yes Hx Open Heart Surgery: No Hx Orthopedic Surgery: Yes (R KNEE total knee replacement) Hx Valve Replacement: No Other/Comment: sarcoma resection leg, left breast nodule excision, r ft hammertoe sx - Anesthesia Hx Anesthesia: Yes Hx Anesthesia Reactions: No Hx Malignant Hyperthermia: No - Suicidal Assessment Feels Threatened In Home Enviroment: No Family/Social History - Physician Review Nursing Documentation Reviewed: Yes Family/Social History: Unknown Family HX Smoking Status: Unknown If Ever Smoked Hx Alcohol Use: No Hx Substance Use: No Allergies/Home Meds Allergies/Adverse Reactions: Allergies CAT DANDER Adverse Reaction (Severe, Uncoded 01/15/18 18:39) ITCHY EYES/SNEEZING Home Medications: Home Meds Medication Instructions Recorded Confirmed Levothyroxine [Synthroid] 50 mcg PO QAM 12/13/16 01/30/18 Albuterol HFA [Ventolin HFA 90 2 puff NEB Q6 PRN 08/05/17 11/04/17 mcg/actuation (8 g)] Montelukast [Singulair] 10 mg PO DAILY 08/05/17 01/30/18 Lisinopril [Zestril] 2.5 mg PO DAILY 09/24/17 01/30/18 Apixaban [Eliquis] 2.5 mg PO BID 11/04/17 01/30/18 Atorvastatin [Lipitor] 10 mg PO DIN 11/04/17 01/30/18 Carvedilol [Coreg] 3.125 mg PO BID 11/04/17 01/30/18 ALPRAZolam [Xanax] 0.125 mg PO PRN PRN 01/30/18 01/30/18 Famotidine [Pepcid] 40 mg PO HS 01/30/18 01/30/18 Review of Systems - Review of Systems Constitutional: Normal Eyes: Normal ENT: Normal Respiratory: Normal Cardiovascular: Normal Gastrointestinal: Abdominal Pain (epigastric). absent: Stool Changes, Constipation, Diarrhea, Nausea, Vomiting, Appetite Changes, Hematochezia, Hematemesis, Anorexia, Food Intolerance, Other Genitourinary Female: Normal Musculoskeletal: Normal Skin: Normal Neurological: Normal Endocrine: Normal Hemo/Lymphatic: Normal Psychiatric: Normal Physical Exam Vital Signs Reviewed: Yes Vital Signs Temp Pulse Resp BP Pulse Ox 01/30/18 19:55 70 18 126/73 98 01/30/18 18:05 72 18 137/82 100 01/30/18 16:28 16 01/30/18 16:05 98 F 62 18 129/64 98 Temperature: Afebrile Blood Pressure: Normal Pulse: Regular Respiratory Rate: Normal Appearance: Positive for: Well-Appearing, Non-Toxic, Comfortable Pain Distress: None Mental Status: Positive for: Alert and Oriented X 3 - Systems Exam Head: Present: Atraumatic, Normocephalic Pupils: Present: PERRL Extroacular Muscles: Present: EOMI Conjunctiva: Present: Normal Mouth: Present: Moist Mucous Membranes Neck: Present: Normal Range of Motion Respiratory/Chest: Present: Clear to Auscultation, Good Air Exchange. No: Respiratory Distress, Accessory Muscle Use, Wheezes, Decreased Breath Sounds, Rales, Retracting, Rhonchi, Tachypneic, Tender to Palpation, Other Cardiovascular: Present: Regular Rate and Rhythm, Normal S1, S2. No: Murmurs Abdomen: Present: Normal Bowel Sounds. No: Tenderness, Distention, Peritoneal Signs Back: Present: Normal Inspection Upper Extremity: Present: Normal Inspection. No: Cyanosis, Edema Lower Extremity: Present: Normal Inspection. No: Edema Neurological: Present: GCS=15, CN II-XII Intact, Speech Normal Skin: Present: Warm, Dry, Normal Color. No: Rashes Psychiatric: Present: Alert, Oriented x 3, Normal Insight, Normal Concentration Medical Decision Making ED Course and Treatment: 01/30/18 17:36 Impression Pt is a 82 yr old female with history of hypothyroidism, CAD, and anxiety, presents today complaining of epigastric pain x 1 day without radiation. On exam, no significant findings; point tender on palpation of the epigastric region; lungs CTAB, nl cardio, BS present VT PE GERD/GI Plan Work up for SOB/CP CXR, ECG O2/duoneb tx Progress Note Pt state she puts a sock bundle under her bra around the epigastric area to reduce discomfort; has been doing that for awhile; brought in c-pap mask bc of ill-fitting and is not using it; wanted help with it resting comfortably in bed, talkative sitting up in bed; says she feels better in the upright position and worse in lying Contacted Dr. Garza to discuss case who advised DC if stable; pt has known h/ o chronic anxiety VSS, hemodynamically stable and ready to go wit instructions to f/u w PMD in the morning - Lab Interpretations Lab Results: 01/30/18 17:31 01/30/18 17:15 Lab Results 01/30/18 19:19: Urine Color Yellow, Urine Appearance Clear, Urine pH 6.0, Ur Specific [place] 1.010, Urine Protein Negative, Urine Glucose (UA) Negative, Urine Ketones Negative, Urine Blood Trace-lysed H, Urine Nitrate Negative, Urine Bilirubin Negative, Urine Urobilinogen 0.2, Ur Leukocyte Esterase Negative , Urine RBC Negative, Urine WBC Negative 01/30/18 17:31: WBC 7.6 D, RBC 4.80, Hgb 14.8, Hct 45.8, MCV 95.4, MCH 30.8, MCHC 32.3, RDW 13.5, Plt Count 125, MPV 12.6 H, Gran % 68.9 H, Lymph % (Auto) 19.3 L, [place] % (Auto) 11.4 H, Eos % (Auto) 0.3 L, Baso % (Auto) 0.1, Gran # 5.24 , Lymph # (Auto) 1.5, [place] # (Auto) 0.9 H, Eos # (Auto) 0.0, Baso # (Auto) 0.01 01/30/18 17:15: PT 13.1 H, INR 1.15 H, APTT 33.4 01/30/18 17:15: Sodium 146, Chloride 109 H, Potassium 3.9, Carbon Dioxide 30, Anion Gap 10, BUN 18, Creatinine 0.8, Est GFR ( Amer) > 60, Est GFR (Non- Af Amer) > 60, Random Glucose 112 H, Calcium 10.2, Total Bilirubin 0.6, AST 68 H D, ALT 113 H, Alkaline Phosphatase 83, Lactate Dehydrogenase 647, Total Creatine Kinase 85, Troponin I 0.02 D, NT-Pro-B Natriuret Pep 2130 H, Total Protein 6.0, Albumin 3.5, Globulin 2.5, Albumin/Globulin Ratio 1.4, Lipase 90 01/30/18 17:15: pO2 30, VBG pH 7.26 L, VBG pCO2 71.0 H*, VBG HCO3 31.9 H, VBG Total CO2 34.1 H, VBG O2 Sat (Calc) 56.5, VBG Base Excess 2.7 H, VBG Potassium 3.9, Sodium 143.0, Chloride 108.0 H, Glucose 112 H, Lactate 1.2, FiO2 21.0, Venous Blood Potassium 3.9 I have reviewed the lab results: Yes - RAD Interpretation Narrative RAD Interpretations (Text): 01/30/18 17:30 No active dz; no change since last XR Radiology Orders: 01/30/18 16:46 CHEST PORTABLE [RAD] Stat Adult Live In Caregiver: Radiologist - EKG Interpretation Interpreted by ED Physician: Yes (Electronic ventricular pacemaker) - Medication Orders Current Medication Orders: Discontinued Medications Albuterol/Ipratropium (Duoneb 3 Mg/0.5 Mg (3 Ml) Ud) 3 ml IH STAT STA Stop: 01/30/18 18:34 Last Admin: 01/30/18 19:34 Dose: 3 ml Disposition/Present on Arrival - Present on Arrival Any Indicators Present on Arrival: Yes History of DVT/PE: No History of Uncontrolled Diabetes: No Urinary Catheter: No History of Decub. Ulcer: No History Surgical Site Infection Following: None - Disposition Have Diagnosis and Disposition been Completed?: Yes Diagnosis: Epigastric pain, Anxiety, Non-cardiac chest pain Disposition: HOME/ ROUTINE Disposition Time: 19:44 Patient Plan: Discharge Condition: STABLE Discharge Instructions (ExitCare): Stomach Ache and Stomach Upset, Chest Pain ( ED) Additional Instructions: Dear Payton, Please follow up with Dr. Garza in the next 24hrs. If worsening of symptoms, return to the Emergency department for an evaluation. Continue taking your medication as prescribed and use the C-PAP unit at night for sleeping. All the SARAH stanley Referrals: Letha Garza MD [Primary Care Provider] - Follow up with primary Forms: [employer] (Kyrgyz)
--- NOTE | 2018-01-30 17:15 | RAD ---
HISTORY: Chest pain COMPARISON: 11/01/2017 FINDINGS: LUNGS: No active pulmonary disease. PLEURA: No significant pleural effusion identified, no pneumothorax apparent. CARDIOVASCULAR: No radiographic findings to suggest acute or significant cardiovascular disease. Position/ configuration of pacemaker device: Satisfactory. OSSEOUS STRUCTURES: No significant abnormalities. VISUALIZED UPPER ABDOMEN: Normal. OTHER FINDINGS: None. IMPRESSION: No active disease. No significant interval change compared to the prior examination(s).
[2018-01-30 17:32] LABS: VENOUS BLOOD GAS BASE EXCESS 2.7 mmol/L (0.0-2.0); VENOUS BLOOD GAS PO2 30 mm/Hg (30-55); VENOUS BLOOD PH 7.26 (7.32-7.43)
[2018-01-30 17:35] LABS: BASO # 0.01 K/mm3 (0.0-2.0); BASO % 0.1 % (0.0-3.0); EOS % 0.3 % (1.5-5.0); GRAN # 5.24 (1.4-6.5); GRAN % 68.9 % (50.0-68.0); HEMOGLOBIN 14.8 g/dL (12.0-16.0); LYMPH # 1.5 (1.2-3.4); LYMPH % 19.3 % (22.0-35.0); MEAN CELL VOLUME 95.4 fl (80.0-105.0); MEAN CORPUSCULAR HEMOGLOBIN 30.8 pg (25.0-35.0); MEAN CORPUSCULAR HGB CONC 32.3 g/dl (31.0-37.0); MEAN PLATELET VOLUME 12.6 fl (7.0-11.0); MONO # 0.9 (0.1-0.6); MONO % 11.4 % (1.0-6.0); RBC 4.8 10^6/uL (3.5-6.1); RED CELL DISTRIBUTION WIDTH 13.5 % (11.5-14.5); WHITE BLOOD COUNT 7.6 10^3/ul (4.5-11.0)
[2018-01-30 17:41] LABS: ALB/GLOB RATIO 1.4 (1.1-1.8); ALBUMIN 3.5 g/dL (3.0-4.8); ALT/SGPT 113 U/L (7-56); AST/SGOT 68 U/L (14-36); BLOOD UREA NITROGEN 18 mg/dL (7-21); CALCIUM 10.2 mg/dL (8.4-10.5); GFR AFRICAN-AMERICAN > 60; GFR NON-AFRICAN AMERICAN > 60; LIPASE 90 U/L (23-300)
[2018-01-30 17:42] LABS: INR 1.15 (0.93-1.08); PARTIAL THROMBOPLASTIN TIME 33.4 Seconds (25.1-36.5); PROTHROMBIN TIME 13.1 SECONDS (9.4-12.5)
[2018-01-30 17:52] LABS: B-TYPE NATRIURETIC PEPTIDE 2130 pg/mL (0-450); TROPONIN I 0.02 ng/mL
[2018-01-30] MEDS ORDERED: Albuterol-Ipratrop 3 mg / 0.5 (3 ml) UD IH STA (18:33)
[2018-01-30 19:40] LABS: URINE APPEARANCE CLEAR (CLEAR); URINE BILIRUBIN NEGATIVE (NEGATIVE); URINE BLOOD TRACE-LYSED (NEGATIVE); URINE COLOR YELLOW (YELLOW); URINE GLUCOSE (UA) NEGATIVE (NEGATIVE); URINE LEUKOCYTE ESTERASE NEGATIVE Leu/uL (NEGATIVE); URINE PROTEIN NEGATIVE mg/dL (<30 mg/dL); URINE UROBILINOGEN 0.2 E.U./dL (<1 E.U./dL)
[2018-01-30 19:42] LABS: URINE RBC NEGATIVE /hpf (0-2)
[2018-01-30 19:43] LABS: URINE WBC NEGATIVE /hpf (0-6)
[2018-01-30 19:57] VITALS: BP 126/73; PULSE 70; O2SAT 98
--- NOTE | 2018-01-30 20:37 | CARD ---
APPROVED REPORT EKG Measurement Heart [id number] <Conclusion> Electronic ventricular pacemaker
== END 2018-01-30 20:08 | disposition home or self-care (01) ==
LOC: ED 16:05
DX: R07.89 Other chest pain (principal); R10.13 Epigastric pain; F41.9 Anxiety disorder, unspecified; I10 Essential (primary) hypertension; Z95.1 Presence of aortocoronary bypass graft

== ENCOUNTER 2018-04-05 07:45 | Day surgery (SDC) | payer MEDICARE, BC ==
[2018-03-30 14:12] VITALS: BMI 20.3
--- NOTE | 2018-04-05 05:07 | HP ---
REASON FOR ADMISSION: Right heart catheterization. BRIEF CLINICAL HISTORY: This is an 82-year-old female with a past medical history significant for hypertension, hyperlipidemia, COPD, atrial fibrillation, admitted for right heart catheterization as per Dr. Quintana and Dr. Becker. The patient denies any chest pain, but complained of dyspnea on exertion. 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 PREVIOUS CARDIAC WORKUP: The patient had a cardiac catheterization done on 11/02/2017 that shows nonobstructive coronary artery disease limited only to distal LAD, diffuse , but no focal flow-limiting stenosis, preserved LV function, ejection fraction of 35% to 40%, EDP in the range of 18, dated 11/02/2014 when the patient presented with a non-STEMI. The patient now seeing Dr. Quintana and is considering right heart catheterization. The patient had a permanent pacemaker on 01/02/2017, because patient was admitted with a high-grade AV block. The patient had recent echocardiography, 11/02/2017, that revealed ejection fraction of 35%, mild aortic regurgitation, [id number] tricuspid regurgitation, right ventricular systolic pressure of 52. Omhm-ee-xkaeedfz pulmonary hypertension, aortic valve decreased opening , mild aortic sclerosis versus aortic stenosis. Cardiac catheterization on 10/03/2017 revealed nonobstructive coronary artery disease non-STEMI. LAD diffuse disease, 55% , but no focal flow-limiting stenosis noted. Preserved LV function, ejection fraction 35% to 40%. Prior echo, the patient had echo on 01/03/2018 with ejection fraction , zztc-yf-mggmhsta aortic regurgitation, moderate valvular aortic regurgitation, moderate valvular aortic stenosis with valve area of 1.2 to 1.4 cm2, mitral regurgitation, qeyq-le-ukvefsvb tricuspid regurgitation, right ventricular systolic pressure of 67. SOCIAL HISTORY: Denies smoking. Denies any history of alcohol abuse. ALLERGIES: TO CAT DANDER. CURRENT MEDICATIONS: Patient is taking at home Zestril, Singulair, levothyroxine, albuterol, carvedilol, atorvastatin, Eliquis 2.5 mg twice a day, and Xanax. REVIEW OF SYSTEMS: As per HPI. PHYSICAL EXAMINATION: VITAL SIGNS: Temperature afebrile, heart rate 86, blood pressure 104/54. Height of the patient is 5 feet 6 inch. Weight of the patient is 126 pounds. HEENT: PERRLA. Extraocular muscles intact. NECK: Supple. No carotid bruit or thyromegaly. CHEST: Clear to auscultation. HEART: S1 and S2 regular. ABDOMEN: Soft. EXTREMITIES: Clubbing and cyanosis negative. LABORATORY DATA: Labs pending. RECOMMENDATION: We will do right heart catheterization. Further recommendations after cardiac catheterization. We will follow with you. Thank you, Dr. Becker/Dr. Lazar/Dr. Quintana, for providing us the opportunity in taking care of the patient, Payton Christy. Kelsey Dela Cruz MD
[2018-04-05 08:18] LABS: BASO # 0.01 K/mm3 (0.0-2.0); BASO % 0.1 % (0.0-3.0); EOS # 0.1 (0.0-0.7); EOS % 1.6 % (1.5-5.0); GRAN # 4.46 (1.4-6.5); GRAN % 64.9 % (50.0-68.0); HEMOGLOBIN 15.1 g/dL (12.0-16.0); LYMPH # 1.6 (1.2-3.4); LYMPH % 23.5 % (22.0-35.0); MEAN CELL VOLUME 94.5 fl (80.0-105.0); MEAN CORPUSCULAR HEMOGLOBIN 30.8 pg (25.0-35.0); MEAN CORPUSCULAR HGB CONC 32.6 g/dl (31.0-37.0); MEAN PLATELET VOLUME 11.9 fl (7.0-11.0); MONO # 0.7 (0.1-0.6); MONO % 9.9 % (1.0-6.0); RBC 4.9 10^6/uL (3.5-6.1); RED CELL DISTRIBUTION WIDTH 12.9 % (11.5-14.5); WHITE BLOOD COUNT 6.9 10^3/ul (4.5-11.0)
[2018-04-05 08:25] LABS: PARTIAL THROMBOPLASTIN TIME 32.8 Seconds (25.1-36.5); PROTHROMBIN TIME 11.5 SECONDS (9.4-12.5)
[2018-04-05 08:29] LABS: BLOOD UREA NITROGEN 16 mg/dL (7-21); CALCIUM 9.8 mg/dL (8.4-10.5); GFR AFRICAN-AMERICAN > 60; GFR NON-AFRICAN AMERICAN > 60; HDL CHOLESTEROL 70 mg/dL (29-60)
[2018-04-05 08:33] VITALS: RESP 18
[2018-04-05 08:40] LABS: LDL CHOLESTEROL 83 mg/dL (0-129)
[2018-04-05] MEDS ORDERED: Lidocaine 2% Inj (20ml) ONE (10:02)
[2018-04-05] MEDS ORDERED: Midazolam 2 MG/2 ML VIAL ONE (10:10)
[2018-04-05] MEDS ORDERED: Sodium Chloride 0.9% 1,000 ML IV SCH ×2 (11:00)
[2018-04-05] MEDS ORDERED: Albuterol HFA 90 mcg/actuation (8 g) INH PRN (11:01)
[2018-04-05] MEDS ORDERED: Albuterol 0.5% Inhal Sol (2.5 mg/0.5 ml) UD IH PRN (11:15)
[2018-04-05 11:18] VITALS: TEMP 98.4
--- NOTE | 2018-04-05 11:22 | CPOSTOP ---
DATE: 04/05/2018 CARDIOVASCULAR LAB PROCEDURE POST PROCEDURE NOTE PHYSICIAN: Kelsey Dela Cruz MD WASHING MACHINE LOADER: MEERA Ragsdale TYPE OF ANESTHESIA: Moderate conscious sedation, total 1 mg of Versed, 50 of fentanyl given. PRE-PROCEDURE DIAGNOSIS: Pulmonary hypertension. PROCEDURE PERFORMED: Right heart catheterization. FINDINGS: RA 7, RV 32/8, PA 31/11, mean PA 18, pulmonary capillary wedge pressure 10-11 mm, cardiac output 3.17, cardiac index 1.93 thermodilution, PVR of 3.15 Wood units. FINAL DIAGNOSIS: Mild pulmonary hypertension. VASCULAR ACCESS SITE: Right femoral vein. CLOSURE DEVICE: Mynx. RADIATION DOSE: 451.91 sussy andrade units. FLUORO TIME: 1.2minutes. Kelsey Dela Cruz MD MTDD
[2018-04-05 14:54] VITALS: O2SAT 96
--- NOTE | 2018-04-05 14:58 | CARDCATH ---
PROCEDURE DATE: 04/05/2018 CARDIAC INSURANCE ADJUSTER PROCEDURE/RIGHT HEART CATHETERIZATION REFERRING PHYSICIANS: Alexander Quintana MD/Nidia Noriega MD/Kelsey Becker MD. Scheduling elective. OPERATING PHYSICIAN: Kelsey Dela Cruz MD. MUSIC MANAGER: MEERA Ragsdale. Scheduling elective. PROCEDURE PERFORMED: Right heart catheterization. INDICATIONS: Shortness of breath, pulmonary hypertension, echo. Referred by Pulmonary to assess severity of pulmonary hypertension. BRIEF CLINICAL HISTORY: An 82-year-old female with a past medical history significant for hypertension, hyperlipidemia, COPD, atrial fibrillation, seen by Dr. Quintana and referred for right heart catheterization. The patient has a prior left heart catheterization on 11/02/2017 that showed nonobstructive coronary artery disease, limited only to distal LAD, diffusely diseased, ejection fraction 35%-40%, EDP within the range of 18 when the patient presented with non-STEMI. The patient had also pacemaker done on 01/02/2017 when the patient presented with high grade AV block. Most recently, the patient had echocardiography done that shows ejection fraction 35%-40%, ycqt-jr-[id number] aortic regurgitation, moderate valvular aortic stenosis with valve area 1.25 to 1.2 to 1.4 cm2, mitral regurgitation [id number]-[id number], tricuspid regurgitation ynnd-ov-qtjibjss, RV systolic pressure of 67. TECHNIQUE: The patient was brought to the cardiac cardiac catheterization technologist, prepped and draped in standard sterile fashion. Right groin punctured using Seldinger technique. A 7-H[place] Konger short venous sheath placed in the right femoral vein after giving 2% lidocaine locally. Then, 7-H[place]er Gobles-Cyrus catheter was taken and pressure measured of right atrium and right ventricle PA and wedge and also cardiac output calculated with thermodilution method. FINDINGS: RA 7 mmHg, RV 32/8, PA 31/11, mean PA 18 mmHg, pulmonary capillary wedge pressure 10-11 mmHg, cardiac output 3.17 L, cardiac index 1.92 by thermodilution. Calculated pulmonary vascular resistance, PVR, 3.15 Sherman unit. IMPRESSION: Mild pulmonary hypertension. Kelsey Dela Cruz MD cc: MD Kelsey Aguilera MD Alan Burghauser, MD
[2018-04-05 15:00] VITALS: BP 109/82; PULSE 62
[2018-04-06] MEDS ORDERED: Levothyroxine 50 MCG TAB PO SCH (10:00)
== END 2018-04-05 16:15 | disposition home or self-care (01) ==
LOC: CATH 07:45
PROVIDERS: ATTEND Internal Medicine Cardiovascular Disease
DX: I27.20 Pulmonary hypertension, unspecified (principal); I25.10 Atherosclerotic heart disease of native coronary artery without angina pectoris; I10 Essential (primary) hypertension; I48.91 Unspecified atrial fibrillation; J44.9 Chronic obstructive pulmonary disease, unspecified; E78.5 Hyperlipidemia, unspecified; I08.3 Combined rheumatic disorders of mitral, aortic and tricuspid valves; Z95.0 Presence of cardiac pacemaker
CPT/HCPCS: 36415; 80048; 80061; 85025; 85610; 85730; 86850; 86900; 93451; 99152; C1760; C1894; J1644; J2250; J3010; J7030; J7040

== ENCOUNTER 2018-12-27 09:00 | Outpatient (CLI) | payer MEDICARE, BC | END 2018-12-27 09:10 | disposition home or self-care (01) | LOC: CARDIO 09:00 ==

== ENCOUNTER 2019-03-02 11:02 | Emergency (ER) | payer MEDICARE, BC ==
[2019-03-02 11:03] VITALS: BMI 21.2
[2019-03-02 11:27] VITALS: RESP 18; O2SAT 98
--- NOTE | 2019-03-02 12:58 | CT ---
Date of service: 03/02/2019 PROCEDURE: CT HEAD WITHOUT CONTRAST. HISTORY: fall, head injury 3 days ago COMPARISON: CT head dated 09/24/2014. TECHNIQUE: Axial computed tomography images were obtained through the head/brain without intravenous contrast. Radiation dose: Total exam DLP = 809.58 mGy-cm. This CT exam was performed using one or more of the following dose reduction techniques: Automated exposure control, adjustment of the mA and/or kV according to patient size, and/or use of iterative reconstruction technique. FINDINGS: HEMORRHAGE: No intracranial hemorrhage. BRAIN: No mass effect or edema. No atrophy or chronic microvascular ischemic changes. VENTRICLES: Unremarkable. No hydrocephalus. CALVARIUM: Unremarkable. PARANASAL SINUSES: Unremarkable as visualized. No significant inflammatory changes. MASTOID AIR CELLS: Unremarkable as visualized. No inflammatory changes. OTHER FINDINGS: None. IMPRESSION: No acute intracranial pathology.
--- NOTE | 2019-03-02 12:59 | CT ---
Date of service: 03/02/2019 PROCEDURE: CT Cervical Spine without contrast HISTORY: fall COMPARISON: None available. TECHNIQUE: Axial computed tomography images were obtained of the cervical spine without the use of intravenous contrast. Coronal and sagittal reformatted images were created and reviewed. Radiation dose: Total exam DLP = 228.25 mGy-cm. This CT exam was performed using one or more of the following dose reduction techniques: Automated exposure control, adjustment of the mA and/or kV according to patient size, and/or use of iterative reconstruction technique. FINDINGS: VERTEBRAE: No fracture. Normal alignment. No destructive bony lesion. DISCS/SPINAL CANAL/NEURAL FORAMINA: Multilevel disc space narrowing characterized by vertebral body intervertebral disc space height loss with multilevel disc osteophyte complexes. PARASPINAL SOFT TISSUES: Unremarkable. OTHER FINDINGS: None. IMPRESSION: No acute fracture. Multilevel degenerative changes.
[2019-03-02 13:14] VITALS: BP 129/64; PULSE 66; TEMP 98.3
--- NOTE | 2019-03-02 13:28 | ED PDOC ---
Arrival/HPI - General Historian: Patient - History of Present Illness Narrative History of Present Illness (Text): 03/02/19 13:26 83-year-old female presents today with a posterior headache status post mechanical fall 3 days ago. Patient states she was sorting papers and her chair was behind her. Patient states she went to go sit down missed the chair and fell hitting the back of her head on the ground. Patient denies loss of consciousness at that time. She denies dizziness or weakness. Patient states for the past 3 days she has had continued posterior headache. She denies numbness weakness or tingling in the extremities. Denies chest pain or shortness of breath. Patient states she thought that the headache would go away but it has not so she came into the emergency room for evaluation. Time/Duration: Other (3 days ago) <Brooke Doran - Last Filed: 03/02/19 13:39> <Angel Gardner - Last Filed: 03/02/19 14:20> - General Chief Complaint: Trauma Time Seen by Provider: 03/02/19 11:06 Past Medical History - Provider Review Nursing Documentation Reviewed: Yes - Travel History Have you recently traveled outside [place] w/in the past 3 mons?: No - Infectious Disease Hx of Infectious Diseases: None - Reproductive Menopause: Yes - Cardiac Hx Pacemaker: Yes ([employer]-12/2017) - Pulmonary Hx Asthma: Yes Hx Sleep Apnea: Yes - Neurological Hx Paralysis: No - HEENT Hx HEENT Disorder: Yes (rhinoplasty) Hx Cataracts: Yes (bilateral) Other/Comment: b/l hearing aides, eyeglasses - Renal Hx Renal Disorder: No - Endocrine/Metabolic Hx Hypothyroidism: Yes - Integumentary Other/Comment: left great toe fungus infection - Musculoskeletal/Rheumatological Hx Musculoskeletal Disorders: Yes - Gastrointestinal Hx Gastrointestinal Disorders: Yes Hx Diverticulitis: Yes - Genitourinary/Gynecological Hx Genitourinary Disorders: No - Psychiatric Hx Emotional Abuse: No Hx Physical Abuse: No Hx Substance Use: No - Surgical History Hx Cardiac Catheterization: No Hx Hysterectomy: Yes Hx Open Heart Surgery: No Hx Orthopedic Surgery: Yes (R KNEE total knee replacement) Hx Valve Replacement: No Other/Comment: sarcoma resection leg, left breast nodule excision, r ft hammertoe sx - Anesthesia Hx Anesthesia Reactions: No Hx Malignant Hyperthermia: No - Suicidal Assessment Feels Threatened In Home Enviroment: No <Brooke Doran - Last Filed: 03/02/19 13:39> Family/Social History - Physician Review Nursing Documentation Reviewed: Yes Family/Social History: Unknown Family HX Smoking Status: Unknown If Ever Smoked Hx Alcohol Use: No Hx Substance Use: No <Brooke Doran - Last Filed: 03/02/19 13:39> Allergies/Home Meds <Brokoe Doran - Last Filed: 03/02/19 13:39> <Angel Gardner - Last Filed: 03/02/19 14:20> Allergies/Adverse Reactions: Allergies CAT DANDER Adverse Reaction (Severe, Uncoded 07/15/18 06:06) ITCHY EYES/SNEEZING Home Medications: Home Meds Medication Instructions Recorded Confirmed Levothyroxine [Synthroid] 50 mcg PO QAM 12/13/16 07/15/18 Albuterol HFA [Ventolin HFA 90 2 puff NEB Q6 PRN 08/05/17 07/15/18 mcg/actuation (8 g)] Montelukast [Singulair] 10 mg PO DAILY 08/05/17 07/15/18 Lisinopril [Zestril] 5 mg PO DAILY 09/24/17 07/15/18 Carvedilol [Coreg] 3.125 mg PO BID 11/04/17 07/15/18 ALPRAZolam [Xanax] 0.125 mg PO HS PRN 01/30/18 07/15/18 Famotidine [Pepcid] 40 mg PO HS 01/30/18 07/15/18 Fluticasone/Vilanterol [Breo 1 each IH DAILY 03/30/18 07/15/18 Ellipta 100-25 Mcg INH] Furosemide [Lasix] 20 mg PO DAILY 03/30/18 07/15/18 Rivaroxaban [Xarelto] 15 mg PO BID 07/15/18 07/15/18 Rosuvastatin Calcium [Crestor] 5 mg PO HS 07/15/18 07/15/18 Review of Systems - Review of Systems Constitutional: absent: Fatigue, Fevers Respiratory: absent: SOB, Cough Cardiovascular: absent: Chest Pain, Palpitations Gastrointestinal: absent: Abdominal Pain, Nausea, Vomiting Musculoskeletal: absent: Back Pain, Neck Pain Skin: absent: Rash, Pruritis Neurological: Headache. absent: Dizziness Psychiatric: absent: Anxiety, Depression <Brooke Doran - Last Filed: 03/02/19 13:39> Physical Exam Vital Signs Reviewed: Yes Vital Signs Temp Pulse Resp BP Pulse Ox 03/02/19 13:13 98.3 F 66 18 129/64 98 03/02/19 11:22 98.1 F 68 18 121/74 98 03/02/19 11:03 98.1 F 68 18 121/74 98 Temperature: Afebrile Blood Pressure: Normal Pulse: Regular Respiratory Rate: Normal Appearance: Positive for: Well-Appearing, Non-Toxic, Comfortable Pain Distress: None Mental Status: Positive for: Alert and Oriented X 3 - Systems Exam Head: Present: Contusion (+ tenderness and ecchymosis noted to posterior scalp; no step offs or crepitus. ) Pupils: Present: PERRL Extroacular Muscles: Present: EOMI Conjunctiva: Present: Normal Ears: Present: Normal, NORMAL TM Mouth: Present: Moist Mucous Membranes Neck: Present: Normal Range of Motion Respiratory/Chest: Present: Clear to Auscultation, Good Air Exchange. No: Respiratory Distress, Accessory Muscle Use Cardiovascular: Present: Regular Rate and Rhythm, Normal S1, S2. No: Murmurs Abdomen: No: Tenderness Upper Extremity: Present: Normal ROM Lower Extremity: Present: Normal ROM Neurological: Present: GCS=15, Speech Normal, Motor Func Grossly Intact, Gait Normal Skin: Present: Warm, Dry, Normal Color Psychiatric: Present: Alert, Oriented x 3 <Brooke Doran T - Last Filed: 03/02/19 13:39> Vital Signs Temp Pulse Resp BP Pulse Ox 03/02/19 13:13 98.3 F 66 18 129/64 98 03/02/19 11:22 98.1 F 68 18 121/74 98 03/02/19 11:03 98.1 F 68 18 121/74 98 <Angel Gardner - Last Filed: 03/02/19 14:20> Medical Decision Making ED Course and Treatment: 03/02/19 13:24 83-year-old female presenting with headache status post fall [address] of the head:FINDINGS: HEMORRHAGE: No intracranial hemorrhage. BRAIN: No mass effect or edema. No atrophy or chronic microvascular ischemic changes. VENTRICLES: Unremarkable. No hydrocephalus. CALVARIUM: Unremarkable. PARANASAL SINUSES: Unremarkable as visualized. No significant inflammatory changes. MASTOID AIR CELLS: Unremarkable as visualized. No inflammatory changes. OTHER FINDINGS: None. IMPRESSION: No acute intracranial pathology. CT of the cervical spine:FINDINGS: VERTEBRAE: No fracture. Normal alignment. No destructive bony lesion. DISCS/SPINAL CANAL/NEURAL FORAMINA: Multilevel disc space narrowing characterized by vertebral body intervertebral disc space height loss with multilevel disc osteophyte complexes. PARASPINAL SOFT TISSUES: Unremarkable. OTHER FINDINGS: None. IMPRESSION: No acute fracture. Multilevel degenerative changes. Patient reassessment: Patient is nontoxic well-appearing no distress with stable vital signs I discussed all results in depth with the patient advised follow-up with a primary care physician within the next 2 days. Advised me to return if symptoms worsen persist or if new concerning symptoms develop Patient verbalizes understanding of discharge instructions and need for immediate followup. All aspects of this case were discussed the attending of record. Impression: Fall, head injury, headache Tylenol every 4 hours as needed for pain Follow-up with primary care physician within the next 2 days Return immediately if symptoms worsen persist or if new symptoms develop: Headaches, dizziness, weakness, difficulty with ambulation or if any other concerning symptoms develop Reassessment Condition: Re-examined, Improved - RAD Interpretation Radiology Orders: 03/02/19 12:10 CERVICAL SPINE W/O CONTRAST [CT] Stat HEAD W/O CONTRAST [CT] Stat - Medication Orders Current Medication Orders: Discontinued Medications Acetaminophen (Tylenol 325mg Tab) 650 mg PO STAT STA Stop: 03/02/19 12:11 Last Admin: 03/02/19 13:16 Dose: 650 mg MAR Pain/Vitals Document 03/02/19 13:16 SRE (Rec: 03/02/19 13:17 SRE [id number]) Pain Reassessment Is This A Pain ReAssessment? Yes Sleep Is patient sleeping during reassessment? No Presence of Pain Presence of Pain Yes Pain Scale Used Protocol: PSCALES Pain Scale Used Numeric Location Pain Location Body Transportation Clerk Description Intermittent <Brooke Doran T - Last Filed: 03/02/19 13:39> - RAD Interpretation Radiology Orders: 03/02/19 12:10 CERVICAL SPINE W/O CONTRAST [CT] Stat HEAD W/O CONTRAST [CT] Stat - Medication Orders Current Medication Orders: Discontinued Medications Acetaminophen (Tylenol 325mg Tab) 650 mg PO STAT STA Stop: 03/02/19 12:11 Last Admin: 03/02/19 13:16 Dose: 650 mg MAR Pain/Vitals Document 03/02/19 13:16 SRE (Rec: 03/02/19 13:17 SRE [id number]) Pain Reassessment Is This A Pain ReAssessment? Yes Sleep Is patient sleeping during reassessment? No Presence of Pain Presence of Pain Yes Pain Scale Used Protocol: PSCALES Pain Scale Used Numeric Location Pain Location Body Transportation Clerk Description Intermittent <Angel Gardner - Last Filed: 03/02/19 14:20> - PA / POSTPARTUM NURSE / Resident Statement MD/DO has reviewed & agrees with the documentation as recorded. <Angel Gardner - Last Filed: 03/02/19 14:20> Disposition/Present on Arrival - Present on Arrival Any Indicators Present on Arrival: No History of DVT/PE: No History of Uncontrolled Diabetes: No Urinary Catheter: No History of Decub. Ulcer: No History Surgical Site Infection Following: None - Disposition Have Diagnosis and Disposition been Completed?: Yes Disposition Time: 13:26 Patient Plan: Discharge <Brooke Doran - Last Filed: 03/02/19 13:39> <Angel Gardner - Last Filed: 03/02/19 14:20> - Disposition Diagnosis: Head injury, Headache Disposition: HOME/ ROUTINE Condition: GOOD Discharge Instructions (ExitCare): Minor Head Injury (DC), Headache, Adult (DC) Additional Instructions: Tylenol every 4 hours as needed for pain Follow-up with primary care physician within the next 2 days Return immediately if symptoms worsen persist or if new symptoms develop: Headaches, dizziness, weakness, difficulty with ambulation or if any other concerning symptoms develop Referrals: Nidia Noriega MD [Family Provider] - Follow up with primary Forms: [employer] (Turkish)
== END 2019-03-02 13:33 | disposition home or self-care (01) ==
LOC: ED 11:02
DX: S09.90XA Unspecified injury of head, initial encounter (principal); W18.39XA Other fall on same level, initial encounter

== ENCOUNTER 2019-03-18 19:48 | Inpatient (IN) | payer MEDICARE, BC ==
[2019-03-18 19:49] VITALS: BMI 20.3
--- NOTE | 2019-03-18 20:22 | ED PDOC ---
Arrival/HPI - General Historian: Patient - History of Present Illness Narrative History of Present Illness (Text): 03/18/19 20:17 83 y/o female, pmh including htn/hypothyroidism/cad/[place]/diverticulitis, nkda, c/o coughing x 5 days. Pt. stated that she has cold like symptoms x 5 days, coughing, fatigue, tired, sob on exertion, hypoxic 92% on room air, no night sweat, no rash, no chest pain or palpitation, no night sweat, no pleuritic pain, no dizziness, no change in vision, no diarrhea, no other medical or psychological complaints. PMD: Dr. Garza <Tomi Carcamo - Last Filed: 03/20/19 12:01> <Kiran Javed - Last Filed: 03/23/19 13:10> - General Chief Complaint: Shortness Of Breath Past Medical History - Provider Review Nursing Documentation Reviewed: Yes - Infectious Disease Hx of Infectious Diseases: None - Cardiac Hx Pacemaker: Yes ([employer]-12/2017) - Pulmonary Hx Asthma: Yes Hx Sleep Apnea: Yes - Neurological Hx Paralysis: No - HEENT Hx HEENT Disorder: Yes (rhinoplasty) Hx Cataracts: Yes (bilateral) Other/Comment: b/l hearing aides, eyeglasses - Renal Hx Renal Disorder: No - Endocrine/Metabolic Hx Hypothyroidism: Yes - Hematological/Oncological Hx Blood Transfusions: No - Integumentary Other/Comment: left great toe fungus infection - Musculoskeletal/Rheumatological Hx Musculoskeletal Disorders: Yes - Gastrointestinal Hx Gastrointestinal Disorders: Yes Hx Diverticulitis: Yes - Genitourinary/Gynecological Hx Genitourinary Disorders: No - Psychiatric Hx Emotional Abuse: No Hx Physical Abuse: No Hx Substance Use: No - Surgical History Hx Cardiac Catheterization: No Hx Hysterectomy: Yes Hx Open Heart Surgery: No Hx Orthopedic Surgery: Yes (R KNEE total knee replacement) Hx Valve Replacement: No Other/Comment: sarcoma resection leg, left breast nodule excision, r ft hammertoe sx - Anesthesia Hx Anesthesia Reactions: No Hx Malignant Hyperthermia: No - Suicidal Assessment Feels Threatened In Home Enviroment: No <Tomi Carcamo - Last Filed: 03/20/19 12:01> Family/Social History - Physician Review Nursing Documentation Reviewed: Yes Family/Social History: Unknown Family HX Smoking Status: Unknown If Ever Smoked Hx Alcohol Use: No Hx Substance Use: No <Tomi Carcamo - Last Filed: 03/20/19 12:01> Allergies/Home Meds <Tomi Carcamo - Last Filed: 03/20/19 12:01> <Naveed Javedyl - Last Filed: 03/23/19 13:10> Allergies/Adverse Reactions: Allergies dog dander Adverse Reaction (Verified 03/18/19 20:15) ITCHING CAT DANDER Adverse Reaction (Severe, Uncoded 03/18/19 20:15) ITCHY EYES/SNEEZING Home Medications: Home Meds Medication Instructions Recorded Confirmed Lisinopril [Zestril] 5 mg PO DAILY 09/24/17 03/19/19 Carvedilol [Coreg] 3.125 mg PO BID 11/04/17 03/19/19 Rosuvastatin Calcium [Crestor] 5 mg PO HS 07/15/18 03/19/19 Apixaban [Eliquis] 2.5 mg PO BID 03/12/19 03/19/19 Review of Systems - Review of Systems Constitutional: Fatigue. absent: Fevers Eyes: absent: Vision Changes ENT: absent: Hearing Changes Respiratory: SOB, Cough, Sputum. absent: Wheezing Cardiovascular: absent: Chest Pain Gastrointestinal: absent: Abdominal Pain, Diarrhea, Nausea, Vomiting Skin: absent: Rash, Pruritis Neurological: absent: Headache Psychiatric: absent: Anxiety, Depression, Suicidal Ideation <Tomi Carcmao - Last Filed: 03/20/19 12:01> Physical Exam Vital Signs Reviewed: Yes Temperature: Afebrile Blood Pressure: Hypertensive Pulse: Tachycardic Respiratory Rate: Normal Appearance: Positive for: Well-Appearing, Non-Toxic, Comfortable Pain Distress: None Mental Status: Positive for: Alert and Oriented X 3 - Systems Exam Head: Present: Atraumatic, Normocephalic Pupils: Present: PERRL Extroacular Muscles: Present: EOMI Conjunctiva: Present: Normal Ears: Present: NORMAL TM, Normal Canal. No: Erythema Mouth: Present: Moist Mucous Membranes Pharnyx: No: ERYTHEMA, EXUDATE, TONSILS ENLARGED Nose (External): Present: Atraumatic. No: Abrasion, Contusion, Laceration, Lesions Nose (Internal): Present: Normal Inspection, No Active Bleeding. No: Rhinorrhea, Septal Hematoma, Epistaxis Neck: Present: Normal Range of Motion, Trachea Midline. No: Meningeal Signs, MIDLINE TENDERNESS, Paraspinal Tenderness, Lymphadenopathy Respiratory/Chest: Present: Decreased Breath Sounds, Rhonchi. No: Respiratory Distress, Accessory Muscle Use, Wheezes, Rales, Retracting, Tachypneic, Tender to Palpation Cardiovascular: Present: Regular Rate and Rhythm, Normal S1, S2. No: Murmurs Abdomen: Present: Normal Bowel Sounds. No: Tenderness, Distention, Peritoneal Signs, Rebound, Guarding Back: Present: Normal Inspection. No: CVA Tenderness, Midline Tenderness, Paraspinal Tenderness, Pain with Leg Raise, Decubitus Ulcer Upper Extremity: Present: Normal Inspection. No: Cyanosis, Edema Lower Extremity: Present: Normal Inspection. No: Edema Neurological: Present: GCS=15, CN II-XII Intact, Speech Normal, Motor Func Grossly Intact, Normal Cerebellar Funct, Gait Normal, Memory Normal Skin: Present: Warm, Dry, Normal Color. No: Rashes Psychiatric: Present: Alert, Oriented x 3, Normal Insight, Normal Concentration <Tomi Carcamo Q - Last Filed: 03/20/19 12:01> Vital Signs Temp Pulse Resp BP Pulse Ox 03/19/19 02:26 97.8 F 03/19/19 02:00 80 20 118/71 98 03/18/19 23:29 100.6 F H 03/18/19 21:56 99.1 F 88 20 146/67 95 03/18/19 20:20 21 95 03/18/19 20:19 20 94 L 03/18/19 20:15 99.6 F 100 H 20 157/98 H 90 L <Kiran Javed - Last Filed: 03/23/19 13:10> Medical Decision Making ED Course and Treatment: 03/18/19 20:25 -Labs -ekg -cxr -Duoneb -Observe and reassess 03/18/19 22:07 -Duoneb and solumedrol IV ordered as her coughing improved with the duoneb. 03/18/19 23:37 -Pt. has fever 100.3F, low grade temp, tylenol 650mg po ordered -EKG: NSR @ 96 BPM, lt. atrial enlargement with RBBb/RVH?, no ST elevation or depression, no T wave inversion. -Chest xray Heart is mildly to moderately enlarged although unchanged from January 302017. Left AICD device is again noted and appears little changed. 3. There is mild diffuse interstitial prominence which appears new or increased from January 30, 2018. This can be seen in pulmonary edema or atypical infectious process. Please correlate clinically. No dense consolidation, pleural effusion or pneumothorax identified. Tortuous ectatic thoracic aorta again noted, probably with little change. Mild scoliosis and degenerative spine changes again noted. -Labs are nonsignificant -BNP 762 from 2130 -Trop is 0.02 from her baseline 0.02 -Lactic acid within normal limit -Pt. still hypoxic around 92 percent room air, CTA chest ordered to r/o infectious or any large PE 03/19/19 00:34 -CTA chest show: 1. Multifocal air space opacities are present in the lingula most compatible with early pneumonic infiltrates. There may be very early air space opacities also developing in the right middle lobe. Dependent airspace opacities at the bases most probably reflect atelectasis. 2. There is some motion artifact on the study which limits evaluation of smaller pulmonary artery branches. However, within the limitations of the study, no evidence for large central pulmonary embolism identified. 3. The left renal collecting system appears prominent. This may represent hydronephrosis versus prominent parapelvic cysts, Incompletely evaluated on the current study. Please correlate clinically and if indicated this could be further evaluated with abdomen CT or renal sonogram. 03/19/19 00:34 -Pt. need admission for IV antibiotics, clinically suspecting pneumonia greater than PE but she would need v/q scan prn if she is not responsive to the IV antibiotics and nebulizers but she is responding to the nebulizer at this time. Due to her age and risk of falls, I would not recommend given her any anticoagulant since pneumonia is present. -I spoke to Dr. Garza, discussed about this case and labs/radiology results, she request Dr. Lindsey for this case with IV rocephine and azithromycin. - RAD Interpretation Radiology Orders: Chest xray: EXAM: CR Chest, 1 View. CLINICAL HISTORY: COUGH X 5 DAYS COMPARISON: DX\SD - CHEST PORTABLE - 01/30/2018 04:58 PM EDT FINDINGS: LUNGS: There is mild diffuse interstitial prominence which appears new or increased from January 30, 2018. This can be seen in pulmonary edema or atypical infectious process. Please correlate clinically. PLEURAL SPACES: No dense consolidation, pleural effusion or pneumothorax identified. MEDIASTINUM: Heart is mildly to moderately enlarged although unchanged from January 302017. Tortuous ectatic thoracic aorta again noted, probably with little change. BONES: Mild scoliosis and degenerative spine changes again noted. MISCELLANEOUS: Left AICD device is again noted and appears little changed. IMPRESSION: 1. Heart is mildly to moderately enlarged although unchanged from January 302017. 2. Left AICD device is again noted and appears little changed. 3. There is mild diffuse interstitial prominence which appears new or increased from January 30, 2018. This can be seen in pulmonary edema or atypical infectious process. Please correlate clinically. 4. No dense consolidation, pleural effusion or pneumothorax identified. 5. Tortuous ectatic thoracic aorta again noted, probably with little change. 6. Mild scoliosis and degenerative spine changes again noted. Electronically signed on March 18, 2019 10:27:16 PM EDT by: Jack Blancas M.D., Certified by ABR, Diagnostic Radiology CTA Chest: EXAM: CTA Chest with Intravenous Contrast for Pulmonary Embolism CLINICAL HISTORY: SOB TECHNIQUE: Axial CTA images of the chest with intravenous contrast using a pulmonary embolism protocol. Reconstructed images were created and reviewed. 222.00 mGy-cm CONTRAST: With; OMNI 350 100CC was administered without incident. COMPARISON: None provided. FINDINGS: PULMONARY ARTERIES There is some motion artifact on the study which limits evaluation of smaller pulmonary artery branches. However, within the limitations of the study, no evidence for large central pulmonary embolism identified. AORTA Mild ectasia of the thoracic aorta without mac aneurysm. Mild to moderate atherosclerotic calcification of the thoracic aorta as well. LUNGS Multifocal air space opacities are present in the lingula most compatible with early pneumonic infiltrates. There may be very early air space opacities also developing in the right middle lobe. Dependent airspace opacities at the bases most probably reflect atelectasis. Mild biapical scarring. PLEURAL SPACES No pleural effusion seen. No pneumothorax evident. HEART Normal heart size. No significant pericardial effusion. LYMPH NODES No lymphadenopathy is evident. BONES Mild to moderate multilevel degenerative spine changes UPPER ABDOMEN The left renal collecting system appears prominent. This may represent hydronephrosis versus prominent parapelvic cysts, Incompletely evaluated on the current study. Please correlate clinically and if indicated this could be further evaluated with abdomen CT or renal sonogram. IMPRESSION: 1. Multifocal air space opacities are present in the lingula most compatible with early pneumonic infiltrates. There may be very early air space opacities also developing in the right middle lobe. Dependent airspace opacities at the bases most probably reflect atelectasis. 2. There is some motion artifact on the study which limits evaluation of smaller pulmonary artery branches. However, within the limitations of the study, no evidence for large central pulmonary embolism identified. 3. The left renal collecting system appears prominent. This may represent hydronephrosis versus prominent parapelvic cysts, Incompletely evaluated on the current study. Please correlate clinically and if indicated this could be further evaluated with abdomen CT or renal sonogram. 4. Additional findings as described above. Electronically signed on March 19, 2019 12:23:23 AM EDT by: Jack Blancas M.D., Certified by ABR, Diagnostic Radiology Dean Of Girls: Radiologist <Tomi Carcamo - Last Filed: 03/20/19 12:01> - Lab Interpretations Microbiology Results: Microbiology Results 03/18/19 21:08 Blood-Venous Blood Culture - Preliminary NO GROWTH AFTER 4 DAYS 03/18/19 20:38 Blood-Venous Blood Culture - Preliminary NO GROWTH AFTER 4 DAYS 03/19/19 11:30 Naris MRSA Culture (Admit) - Final MRSA NOT DETECTED 03/19/19 11:30 Urine Random Urine Culture - Final No Growth (<1,000 CFU/ML) Lab Results: pO2 23 mm/Hg (30-55) L 03/18/19 20:37 VBG pH 7.39 (7.32-7.43) 03/18/19 20:37 VBG pCO2 47.0 (40-60) 03/18/19 20:37 VBG HCO3 28.5 mmol/l (21-28) H 03/18/19 20:37 VBG Total CO2 29.9 mmol.L (22-28) H 03/18/19 20:37 VBG O2 Sat (Calc) 45.8 % (40-65) 03/18/19 20:37 VBG Base Excess 2.8 mmol/L (0.0-2.0) H 03/18/19 20:37 VBG Potassium 3.8 mmol/L (3.6-5.2) 03/18/19 20:37 Sodium 131.0 mmol/L (132-148) L 03/18/19 20:37 Chloride 95.0 mmol/L (98-107) L 03/18/19 20:37 Glucose 131 mg/dl (65-105) H 03/18/19 20:37 Lactate 1.1 mmol/L (0.7-2.1) 03/18/19 20:37 FiO2 21.0 % 03/18/19 20:37 Troponin I 0.02 ng/mL 03/18/19 20:47 NT-Pro-B Natriuret Pep 762 pg/mL (0-450) H 03/18/19 20:47 Total Bilirubin 0.3 mg/dL (0.2-1.3) 03/21/19 06:40 AST 64 U/L (14-36) H D 03/21/19 06:40 ALT 98 U/L (7-56) H 03/21/19 06:40 Alkaline Phosphatase 89 U/L (38-126) 03/21/19 06:40 Total Protein 6.5 g/dL (5.8-8.3) 03/21/19 06:40 Albumin 3.5 g/dL (3.0-4.8) 03/21/19 06:40 Globulin 3.0 gm/dL 03/21/19 06:40 Albumin/Globulin Ratio 1.2 (1.1-1.8) 03/21/19 06:40 Urine Color Yellow (YELLOW) 03/19/19 00:04 Urine Appearance Clear (CLEAR) 03/19/19 00:04 Urine pH 6.0 (4.7-8.0) 03/19/19 00:04 Ur Specific [place] <= 1.005 (1.005-1.035) 03/19/19 00:04 Urine Protein Negative mg/dL (<30 mg/dL) 03/19/19 00:04 Urine Glucose (UA) Negative mg/dL (NEGATIVE) 03/19/19 00:04 Urine Ketones 15 mg/dL (NEGATIVE) H 03/19/19 00:04 Urine Blood Small (NEGATIVE) H 03/19/19 00:04 Urine Nitrate Negative (NEGATIVE) 03/19/19 00:04 Urine Bilirubin Negative (NEGATIVE) 03/19/19 00:04 Urine Urobilinogen 0.2 E.U./dL (<1 E.U./dL) 03/19/19 00:04 Ur Leukocyte Esterase Negative Guy/uL (NEGATIVE) 03/19/19 00:04 Urine RBC 0 - 2 /hpf (0-2) 03/19/19 00:04 Urine WBC 0 - 2 /hpf (0-6) 03/19/19 00:04 Ur Epithelial Cells 0 - 2 /hpf (0-5) 03/19/19 00:04 Urine Bacteria None /hpf (NONE) 03/19/19 00:04 - RAD Interpretation Radiology Orders: 03/18/19 20:22 CHEST PORTABLE [RAD] Stat 03/18/19 22:33 ANGIO CHEST PE PROTOCOL [CT] Stat - Medication Orders Current Medication Orders: Acetaminophen (Tylenol 325mg Tab) 650 mg PO Q6H PRN PRN Reason: Fever >100.4 F Albuterol/Ipratropium (Duoneb 3 Mg/0.5 Mg (3 Ml) Ud) 3 ml IH [id number] [facility] Last Admin: 03/23/19 07:54 Dose: 3 ml Albuterol/Ipratropium (Duoneb 3 Mg/0.5 Mg (3 Ml) Ud) 3 ml IH Q2H PRN PRN Reason: Shortness of Breath Apixaban (Eliquis) 2.5 mg PO BID [facility]; Protocol Last Admin: 03/23/19 10:30 Dose: 2.5 mg Atorvastatin Calcium (Lipitor) 10 mg PO DIN [facility] Last Admin: 03/22/19 17:32 Dose: 10 mg Azithromycin (Zithromax) 500 mg PO DAILY [facility]; Protocol Stop: 03/28/19 10:01 Last Admin: 03/23/19 10:29 Dose: 500 mg Carvedilol (Coreg) 3.125 mg PO BID [facility] Last Admin: 03/23/19 10:30 Dose: 3.125 mg MAR Pulse and Blood Pressure Document 03/23/19 10:30 VS (Rec: 03/23/19 10:30 [place] [facility] [id number] Pulse Pulse Rate (60-90) 80 Blood Pressure Blood Pressure (100/60-150/90) 138/77 Ceftriaxone Sodium (Rocephin 1 Gram Ivpb) 1 gm in 100 mls @ 100 mls/hr IVPB DAILY [facility]; Protocol Levothyroxine Sodium (Synthroid) 50 mcg PO 0600 [facility] Last Admin: 03/23/19 06:02 Dose: 50 mcg Lisinopril (Zestril) 5 mg PO DAILY [facility] Last Admin: 03/23/19 10:29 Dose: 5 mg MAR Pulse and Blood Pressure Document 03/23/19 10:29 VS (Rec: 03/23/19 10:29 VS [facility] [facility] [id number] Pulse Pulse Rate (60-90) 80 Blood Pressure Blood Pressure (100/60-150/90) 138/77 Methylprednisolone (Solu-Medrol) 20 mg IVP Q12 [facility] Last Admin: 03/23/19 10:44 Dose: 20 mg IVP Administration Document 03/23/19 10:44 VS (Rec: 03/23/19 10:45 VS [facility] [id number] Charges for Administration # of IVP Administrations 1 Promethazine HCl/Dextromethorphan (Phenergan Dm Syrup) 5 ml PO Q6H PRN PRN Reason: Cough Last Admin: 03/21/19 15:57 Dose: 5 ml Discontinued Medications Acetaminophen (Tylenol 325mg Tab) 650 mg PO STAT STA Stop: 03/18/19 23:23 Last Admin: 03/18/19 23:29 Dose: 650 mg MAR Pain/Vitals Document 03/18/19 23:29 SS (Rec: 03/18/19 23:29 SS [facility] [place] Vitals Temperature (97.6 F-99.6 F) 100.6 F Temperature Source Rectal Albuterol/Ipratropium (Duoneb 3 Mg/0.5 Mg (3 Ml) Ud) 3 ml IH STAT STA Stop: 03/18/19 20:27 Last Admin: 03/18/19 20:39 Dose: 3 ml Albuterol/Ipratropium (Duoneb 3 Mg/0.5 Mg (3 Ml) Ud) 3 ml IH STAT STA Stop: 03/18/19 22:08 Last Admin: 03/18/19 22:16 Dose: 3 ml Ceftriaxone Sodium (Rocephin 1 Gram Ivpb) 1 gm in 100 mls @ 200 mls/hr IVPB STAT STA; Protocol Stop: 03/19/19 00:07 Last Admin: 03/19/19 00:11 Dose: 200 mls/hr eMAR Start Stop Document 03/19/19 00:11 SS (Rec: 03/19/19 00:11 [place] [facility] [place] Intravenous Solution Start Date 03/19/19 Start Time 00:11 End Date 03/19/19 End time 00:40 Total Infusion Time 29 Azithromycin (Zithromax 500mg In Ns) 500 mg in 250 mls @ 167 mls/hr IVPB STAT STA; Protocol Stop: 03/19/19 01:07 Last Admin: 03/19/19 02:02 Dose: 167 mls/hr eMAR Start Stop Document 03/19/19 02:02 SS (Rec: 03/19/19 02:02 SS [facility]-20) Intravenous Solution Start Date 03/19/19 Start Time 02:02 End Date 03/19/19 End time 03:32 Total Infusion Time 90 Ceftriaxone Sodium (Rocephin 1 Gram Ivpb) 1 gm in 100 mls @ 100 mls/hr IVPB DAILY [facility]; Protocol Stop: 03/26/19 10:01 Last Admin: 03/22/19 09:57 Dose: 100 mls/hr eMAR Start Stop Document 03/22/19 09:57 BIR (Rec: 03/22/19 09:57 BIR [facility] [id number] Intravenous Solution Start Date 03/22/19 Start Time 09:57 End Date 03/22/19 End time 11:00 Total Infusion Time 63 Azithromycin (Zithromax 500mg In Ns) 500 mg in 250 mls @ 167 mls/hr IVPB DAILY [facility]; Protocol Stop: 03/26/19 10:01 Last Admin: 03/20/19 10:52 Dose: 167 mls/hr eMAR Start Stop Document 03/20/19 10:52 LMN (Rec: 03/20/19 10:52 LMN [facility] [id number] Intravenous Solution Start Date 03/20/19 Start Time 12:00 Vancomycin HCl (Vancomycin 1gm) 1 gm in 250 mls @ 167 mls/hr IVPB Q12H [facility]; Protocol Last Admin: 03/20/19 14:51 Dose: 167 mls/hr eMAR Start Stop Document 03/20/19 14:51 LO (Rec: 03/20/19 14:52 LO [facility] [place] [facility] [place] Intravenous Solution Start Date 03/20/19 Start Time 14:52 Melatonin (Melatonin) 3 mg PO STAT STA Stop: 03/21/19 21:31 Last Admin: 03/21/19 22:25 Dose: 3 mg Melatonin (Melatonin) 3 mg PO STAT STA Stop: 03/22/19 22:45 Last Admin: 03/22/19 23:00 Dose: 3 mg Methylprednisolone (Solu-Medrol) 125 mg IVP STAT STA Stop: 03/18/19 22:08 Last Admin: 03/18/19 22:16 Dose: 125 mg IVP Administration Document 03/18/19 22:16 LA (Rec: 03/18/19 22:16 LA [id number]) Charges for Administration # of IVP Administrations 1 Methylprednisolone (Solu-Medrol) 30 mg IVP Q12 [facility] Last Admin: 03/21/19 09:29 Dose: 30 mg IVP Administration Document 03/21/19 09:29 SOUSV (Rec: 03/21/19 09:29 [facility] Charges for Administration # of IVP Administrations 1 Prednisone (Prednisone Tab) 0 mg PO DAILY [facility]; Taper Stop: 03/31/19 09:59 Prednisone (Prednisone Tab) 40 mg PO DAILY [facility]; Taper Stop: 04/01/19 09:59 Last Admin: 03/23/19 10:44 Dose: 40 mg <Kiran Javed - Last Filed: 03/23/19 13:10> - PA / [employer] TECHNICIAN / Resident Statement /DO has reviewed & agrees with the documentation as recorded. <Tomi Carcamo - Last Filed: 03/20/19 12:01> Disposition/Present on Arrival - Present on Arrival Any Indicators Present on Arrival: No History of DVT/PE: No History of Uncontrolled Diabetes: No Urinary Catheter: No History of Decub. Ulcer: No History Surgical Site Infection Following: None - Disposition Have Diagnosis and Disposition been Completed?: Yes Disposition Time: 20:25 Patient Plan: Observation, Telemetry <Tomi Carcamo - Last Filed: 03/20/19 12:01> <Kiran Javed - Last Filed: 03/23/19 13:10> - Disposition Diagnosis: Hypoxic, Fever, Pneumonia, SOB (shortness of breath) Disposition: HOSPITALIZED Patient Problems: Current Active Problems Problem Status Onset Fever Acute Hypoxic Acute Pneumonia Acute SOB (shortness of breath) Acute Condition: GUARDED
[2019-03-18] MEDS ORDERED: Albuterol-Ipratrop 3 mg / 0.5 (3 ml) UD IH STA ×2 (20:26→22:07)
[2019-03-18 20:45] LABS: VENOUS BLOOD GAS BASE EXCESS 2.8 mmol/L (0.0-2.0); VENOUS BLOOD GAS PO2 23 mm/Hg (30-55); VENOUS BLOOD PH 7.39 (7.32-7.43)
[2019-03-18 20:49] LABS: BASO # 0.01 K/mm3 (0.0-2.0); BASO % 0.1 % (0.0-3.0); HEMOGLOBIN 14.6 g/dL (12.0-16.0); LYMPH # 0.9 (1.2-3.4); LYMPH % 10.7 % (22.0-35.0); MEAN CELL VOLUME 92.1 fl (80.0-105.0); MEAN CORPUSCULAR HEMOGLOBIN 30.4 pg (25.0-35.0); MEAN PLATELET VOLUME 11.5 fl (7.0-11.0); MONO # 2.1 (0.1-0.6); MONO % 24.8 % (1.0-6.0); PLATELET COUNT 130 10^3/uL (120.0-450.0); RED CELL DISTRIBUTION WIDTH 12.4 % (11.5-14.5); WHITE BLOOD COUNT 8.3 10^3/uL (4.5-11.0)
[2019-03-18 21:00] LABS: ALB/GLOB RATIO 1.2 (1.1-1.8); ALBUMIN 3.9 g/dL (3.0-4.8); ALT/SGPT 34 U/L (7-56); AST/SGOT 41 U/L (14-36); BLOOD UREA NITROGEN 15 mg/dL (7-21); CALCIUM 10.1 mg/dL (8.4-10.5); GFR NON-AFRICAN AMERICAN > 60
[2019-03-18 21:11] LABS: B-TYPE NATRIURETIC PEPTIDE 762 pg/mL (0-450); TROPONIN I 0.02 ng/mL
[2019-03-18 21:12] LABS: BAND 3 % (0-2); LYMPHOCYTE 6 % (22.0-35.0); METAMYELOCYTE 1 %; MONOCYTE 19 % (1.0-6.0); NEUTROPHIL 71 % (50.0-70.0)
[2019-03-18 21:13] LABS: LARGE PLATELETS PRESENT; PLATELET ESTIMATE NORMAL (NORMAL)
[2019-03-18] MEDS ORDERED: Iohexol 350 MG/100 ML VIAL ONE (22:40)
[2019-03-18] MEDS ORDERED: cefTRIAXone 1 gm 1 GM/100 ML BAG IVPB STA (23:38)
[2019-03-18] MEDS ORDERED: Azithromycin 500MG/NS 250ml 500 MG/250 ML BAG IVPB STA (23:38)
[2019-03-19 00:15] LABS: URINE BILIRUBIN NEGATIVE (NEGATIVE); URINE BLOOD SMALL (NEGATIVE); URINE GLUCOSE (UA) NEGATIVE (NEGATIVE); URINE LEUKOCYTE ESTERASE NEGATIVE Leu/uL (NEGATIVE); URINE PROTEIN NEGATIVE mg/dL (<30 mg/dL); URINE UROBILINOGEN 0.2 E.U./dL (<1 E.U./dL)
[2019-03-19 00:31] LABS: URINE APPEARANCE CLEAR (CLEAR); URINE COLOR YELLOW (YELLOW)
[2019-03-19 00:34] LABS: URINE EPITHELIAL CELLS 0 - 2 /hpf (0-5); URINE RBC 0 - 2 /hpf (0-2); URINE WBC 0 - 2 /hpf (0-6)
[2019-03-19 07:54] LABS: BASO # 0.01 K/mm3 (0.0-2.0); BASO % 0.2 % (0.0-3.0); HEMOGLOBIN 14.1 g/dL (12.0-16.0); LYMPH # 0.6 (1.2-3.4); LYMPH % 9.4 % (22.0-35.0); MEAN CELL VOLUME 92.5 fl (80.0-105.0); MEAN CORPUSCULAR HEMOGLOBIN 30.1 pg (25.0-35.0); MEAN CORPUSCULAR HGB CONC 32.6 g/dl (31.0-37.0); MEAN PLATELET VOLUME 11.2 fl (7.0-11.0); MONO # 0.4 (0.1-0.6); MONO % 6.9 % (1.0-6.0); RBC 4.68 10^6/uL (3.5-6.1); RED CELL DISTRIBUTION WIDTH 12.5 % (11.5-14.5); WHITE BLOOD COUNT 6.2 10^3/uL (4.5-11.0)
--- NOTE | 2019-03-19 08:03 | RAD ---
Date of service: 03/18/2019 HISTORY: cough x 5 days COMPARISON: 01/30/2018 TECHNIQUE: 1 view obtained. FINDINGS: LUNGS: Peribronchial thickening. No focal consolidation PLEURA: No significant pleural effusion identified, no pneumothorax apparent. CARDIOVASCULAR: No aortic atherosclerotic calcification present. Normal cardiac size. No pulmonary vascular congestion. OSSEOUS STRUCTURES: No significant abnormalities. VISUALIZED UPPER ABDOMEN: Normal. OTHER FINDINGS: None. IMPRESSION: Peribronchial thickening. No focal consolidation
[2019-03-19 08:04] LABS: ALB/GLOB RATIO 1.1 (1.1-1.8); ALBUMIN 3.8 g/dL (3.0-4.8); ALT/SGPT 31 U/L (7-56); AST/SGOT 35 U/L (14-36); BLOOD UREA NITROGEN 14 mg/dL (7-21); CALCIUM 10.3 mg/dL (8.4-10.5); GFR NON-AFRICAN AMERICAN > 60
[2019-03-19] MEDS ORDERED: Albuterol-Ipratrop 3 mg / 0.5 (3 ml) UD IH PRN (09:35)
--- NOTE | 2019-03-19 09:49 | CT ---
Date of service: 03/18/2019 PROCEDURE: CT Chest with contrast (Pulmonary Angiogram) HISTORY: cough,sob, inconclusive cxr, PE? pneumonia? COMPARISON: None available. TECHNIQUE: Axial computed tomography images were obtained of the chest in the pulmonary arterial phase of enhancement. Coronal and sagittal reformatted images were created and reviewed. Intravenous contrast dose: Radiation dose: Total exam DLP = 222.62 mGy-cm. This CT exam was performed using one or more of the following dose reduction techniques: Automated exposure control, adjustment of the mA and/or kV according to patient size, and/or use of iterative reconstruction technique. FINDINGS: PULMONARY ARTERIES: There are no filling defects in the pulmonary arteries to suggest acute pulmonary embolism. AORTA: No acute findings. No thoracic aortic aneurysm. There are early aortic atherosclerotic calcifications present. LUNGS: There is pulmonary hyperinflation and diffuse centrilobular emphysema in the lungs. There is a stable 8 mm left upper lobe nodule. No mass or pulmonary consolidation. There is diffuse bronchial wall thickening, multifocal tree-in-bud opacities in the right middle lobe, lingula and left lower lobe with patchy subsegmental atelectasis in the lungs. There are tiny scattered nodules in the lungs. PLEURAL SPACES: No effusion or pneumothorax. HEART: No cardiomegaly. No significant pericardial effusion. LYMPH NODES: No pathologic mediastinal or hilar lymphadenopathy. BONES, CHEST WALL: Within normal limits for the patient's age. No fracture or destructive lesion advanced multilevel degenerative disc disease OTHER FINDINGS: None. IMPRESSION: No CTA evidence for acute pulmonary embolism. Findings are most compatible with infectious bronchiolitis and multifocal pneumonia in the right middle lobe, lingula and left lower lobe, aspiration pneumonitis, endobronchial spread of infection and atypical pneumonia suggests MADELYN are differential considerations clinical follow-up is advised. A preliminary report was provided by [employer].
--- NOTE | 2019-03-19 09:51 | CP.PCM.CON ---
<José Dueñas - Last Filed: 03/19/19 12:16> History of Present Illness - History of Present Illness History of Present Illness: Infectious disease consult: 83-year-old female with past medical history of coronary artery disease, hyperlipidemia, hypothyroid, hypertension, COPD, A. fib on Eliquis presents with cough and congestion. She states that her symptoms started approximately 5 days ago and has gotten progressively worse. She states that the cough is productive with whitish phlegm. She denies any fevers at home. She did state that she went to her PMD and it is unclear if she was given antibiotics and or if she took it. Denies any sick contacts. She denies any chest pain or shortness of breath. 12 point ROS performed negative unless stated above PMH: As above PSH: Right knee arthroplasty, removal of right leg sarcoma, inguinal hernia asked to, hysterectomy Medications: Refer to [facility] Allergy: Dog and cat dander SH: Denies any smoking, drinking, or drugs FH: Denies Review of Systems - Review of Systems All systems: reviewed and no additional remarkable complaints except Past Patient History - Infectious Disease Hx of Infectious Diseases: None - Past Social History Smoking Status: Never Smoked - CARDIAC Hx Cardia Arrhythmia: Yes Hx Hypertension: Yes Hx Pacemaker: Yes ([employer]-12/2017) Other/Comment: AICD - PULMONARY Hx Asthma: Yes Hx Sleep Apnea: Yes - NEUROLOGICAL Hx Neurological Disorder: No - HEENT Hx HEENT Problems: Yes (rhinoplasty) Hx Cataracts: Yes (bilateral) Other/Comment: b/l hearing aides, eyeglasses - RENAL Hx Chronic Kidney Disease: No - ENDOCRINE/METABOLIC Hx Hypothyroidism: Yes - HEMATOLOGICAL/ONCOLOGICAL Hx Blood Disorders: No - INTEGUMENTARY Other/Comment: left great toe fungus infection - MUSCULOSKELETAL/RHEUMATOLOGICAL Hx Falls: Yes Other/Comment: R knee replacementRight foot hammertoe repair - GASTROINTESTINAL Hx Gastrointestinal Disorders: Yes Hx Diverticulitis: Yes - GENITOURINARY/GYNECOLOGICAL Hx Genitourinary Disorders: No - PSYCHIATRIC Hx Emotional Abuse: No Hx Physical Abuse: No Hx Substance Use: No - SURGICAL HISTORY Hx Cardiac Catheterization: Yes Hx Hysterectomy: Yes Hx Open Heart Surgery: No Hx Orthopedic Surgery: Yes (R KNEE total knee replacement) Hx Valve Replacement: No Other/Comment: sarcoma resection leg, left breast nodule excision, r ft hammertoe sx - ANESTHESIA Hx Anesthesia Reactions: No Hx Malignant Hyperthermia: No Meds Allergies/Adverse Reactions: Allergies Allergy/AdvReac Type Severity Reaction Status Date / Time dog dander AdvReac ITCHING Verified 03/18/19 20:15 CAT DANDER AdvReac Severe ITCHY Uncoded 03/18/19 20:15 EYES/SNEEZING - Medications Medications: Current Medications Acetaminophen (Tylenol 325mg Tab) 650 mg PO Q6H PRN PRN Reason: Fever >100.4 F Albuterol/Ipratropium (Duoneb 3 Mg/0.5 Mg (3 Ml) Ud) 3 ml IH [id number] [facility] Albuterol/Ipratropium (Duoneb 3 Mg/0.5 Mg (3 Ml) Ud) 3 ml IH Q2H PRN PRN Reason: Shortness of Breath Apixaban (Eliquis) 2.5 mg PO BID [facility]; Protocol Atorvastatin Calcium (Lipitor) 10 mg PO DIN [facility] Carvedilol (Coreg) 3.125 mg PO BID [facility] Ceftriaxone Sodium (Rocephin 1 Gram Ivpb) 1 gm in 100 mls @ 100 mls/hr IVPB DAILY [facility]; Protocol Stop: 03/26/19 10:01 Azithromycin (Zithromax 500mg In Ns) 500 mg in 250 mls @ 167 mls/hr IVPB DAILY [facility]; Protocol Stop: 03/26/19 10:01 Levothyroxine Sodium (Synthroid) 50 mcg PO 0600 [facility] Lisinopril (Zestril) 5 mg PO DAILY [facility] Methylprednisolone (Solu-Medrol) 30 mg IVP Q12 [facility] Physical Exam - Constitutional Appears: No Acute Distress - Head Exam Head Exam: ATRAUMATIC, NORMOCEPHALIC - Eye Exam Eye Exam: EOMI, PERRL - ENT Exam ENT Exam: Mucous Membranes Moist - Respiratory Exam Respiratory Exam: Clear to Auscultation Bilateral, Wheezes (mild, diffuse ). absent: Rales, Rhonchi - Cardiovascular Exam Cardiovascular Exam: REGULAR RHYTHM, +S1, +S2 - GI/Abdominal Exam GI & Abdominal Exam: Normal Bowel Sounds, Soft. absent: Tenderness - Extremities Exam Extremities exam: Negative for: calf tenderness, pedal edema - Neurological Exam Neurological exam: Alert, Oriented x3 - Psychiatric Exam Psychiatric exam: Normal Mood - Skin Skin Exam: Dry, Warm Results - Vital Signs Recent Vital Signs: Last Vital Signs Temp 97.5 F L 03/19/19 06:00 Pulse 77 03/19/19 06:00 Resp 18 03/19/19 06:00 BP 97/53 L 03/19/19 06:00 Pulse Ox 96 03/19/19 06:00 - Labs Result Diagrams: 03/19/19 07:30 03/19/19 07:30 Labs: Laboratory Results - last 24 hr 03/18/19 03/18/19 03/18/19 20:37 20:47 20:47 WBC 8.3 RBC 4.80 Hgb 14.6 Hct 44.2 MCV 92.1 MCH 30.4 MCHC 33.0 RDW 12.4 Plt Count 130 MPV 11.5 H Neut % (Auto) 64.4 Lymph % (Auto) 10.7 L Wharton % (Auto) 24.8 H Eos % (Auto) 0.0 L Baso % (Auto) 0.1 Lymph # (Auto) 0.9 L Wharton # (Auto) 2.1 H Eos # (Auto) 0.0 Baso # (Auto) 0.01 Absolute Neuts (auto) 5.31 Neutrophils % (Manual) 71 H Band Neutrophils % 3 H Lymphocytes % (Manual) 6 L Monocytes % (Manual) 19 H Metamyelocytes % 1 Platelet Evaluation Normal Large Platelets Present pO2 23 L VBG pH 7.39 VBG pCO2 47.0 VBG HCO3 28.5 H VBG Total CO2 29.9 H VBG O2 Sat (Calc) 45.8 VBG Base Excess 2.8 H VBG Potassium 3.8 Sodium 131.0 L 133 Chloride 95.0 L 96 L Glucose 131 H Lactate 1.1 FiO2 21.0 Potassium 4.0 Carbon Dioxide 29 Anion Gap 13 BUN 15 Creatinine 0.6 L Est GFR ( Amer) > 60 Est GFR (Non-Af Amer) > 60 POC Glucose (mg/dL) Random Glucose 140 H Calcium 10.1 Magnesium 1.8 Total Bilirubin 1.1 AST 41 H ALT 34 Alkaline Phosphatase 89 Troponin I 0.02 NT-Pro-B Natriuret Pep 762 H Total Protein 7.2 Albumin 3.9 Globulin 3.3 Albumin/Globulin Ratio 1.2 Venous Blood Potassium 3.8 Urine Color Urine Appearance Urine pH Ur Specific Bronte Urine Protein Urine Glucose (UA) Urine Ketones Urine Blood Urine Nitrate Urine Bilirubin Urine Urobilinogen Ur Leukocyte Esterase Urine RBC Urine WBC Ur Epithelial Cells Urine Bacteria 03/19/19 03/19/19 03/19/19 00:04 07:08 07:30 WBC 6.2 D RBC 4.68 Hgb 14.1 Hct 43.3 MCV 92.5 MCH 30.1 MCHC 32.6 RDW 12.5 Plt Count 125 MPV 11.2 H Neut % (Auto) 83.5 H Lymph % (Auto) 9.4 L Wharton % (Auto) 6.9 H Eos % (Auto) 0.0 L Baso % (Auto) 0.2 Lymph # (Auto) 0.6 L Wharton # (Auto) 0.4 Eos # (Auto) 0.0 Baso # (Auto) 0.01 Absolute Neuts (auto) 5.17 Neutrophils % (Manual) Band Neutrophils % Lymphocytes % (Manual) Monocytes % (Manual) Metamyelocytes % Platelet Evaluation Large Platelets pO2 VBG pH VBG pCO2 VBG HCO3 VBG Total CO2 VBG O2 Sat (Calc) VBG Base Excess VBG Potassium Sodium Chloride Glucose Lactate FiO2 Potassium Carbon Dioxide Anion Gap BUN Creatinine Est GFR ( Amer) Est GFR (Non-Af Amer) POC Glucose (mg/dL) 175 H Random Glucose Calcium Magnesium Total Bilirubin AST ALT Alkaline Phosphatase Troponin I NT-Pro-B Natriuret Pep Total Protein Albumin Globulin Albumin/Globulin Ratio Venous Blood Potassium Urine Color Yellow Urine Appearance Clear Urine pH 6.0 Ur Specific Bronte <= 1.005 Urine Protein Negative Urine Glucose (UA) Negative Urine Ketones 15 H Urine Blood Small H Urine Nitrate Negative Urine Bilirubin Negative Urine Urobilinogen 0.2 Ur Leukocyte Esterase Negative Urine RBC 0 - 2 Urine WBC 0 - 2 Ur Epithelial Cells 0 - 2 Urine Bacteria None 03/19/19 07:30 WBC RBC Hgb Hct MCV MCH MCHC RDW Plt Count MPV Neut % (Auto) Lymph % (Auto) Wharton % (Auto) Eos % (Auto) Baso % (Auto) Lymph # (Auto) Wharton # (Auto) Eos # (Auto) Baso # (Auto) Absolute Neuts (auto) Neutrophils % (Manual) Band Neutrophils % Lymphocytes % (Manual) Monocytes % (Manual) Metamyelocytes % Platelet Evaluation Large Platelets pO2 VBG pH VBG pCO2 VBG HCO3 VBG Total CO2 VBG O2 Sat (Calc) VBG Base Excess VBG Potassium Sodium 140 Chloride 103 Glucose Lactate FiO2 Potassium 4.2 Carbon Dioxide 30 Anion Gap 12 BUN 14 Creatinine 0.6 L Est GFR ( Amer) > 60 Est GFR (Non-Af Amer) > 60 POC Glucose (mg/dL) Random Glucose 184 H Calcium 10.3 Magnesium Total Bilirubin 0.6 AST 35 ALT 31 Alkaline Phosphatase 86 Troponin I NT-Pro-B Natriuret Pep Total Protein 7.1 Albumin 3.8 Globulin 3.3 Albumin/Globulin Ratio 1.1 Venous Blood Potassium Urine Color Urine Appearance Urine pH Ur Specific Bronte Urine Protein Urine Glucose (UA) Urine Ketones Urine Blood Urine Nitrate Urine Bilirubin Urine Urobilinogen Ur Leukocyte Esterase Urine RBC Urine WBC Ur Epithelial Cells Urine Bacteria Assessment & Plan - Assessment and Plan (Free Text) Assessment: Sepsis 2/2 b/l Community-acquired pneumonia Atrial fibrillation on Eliquis Coronary artery disease Hypothyroid Hypertension COPD Patient was started on Rocephin and azithromycin, we will continue Will started vancomycin since the patient has a pacemaker CT of the chest showed multifocal airspace modality that is present in the lingula most compatible with early infiltrates. Airspace modality in the right middle lobe as well Follow-up septic work-up including blood and urine cultures Follow-up procalcitonin, leigonella urine ag Continue to monitor for any changes Case and plan to be reviewed and discussed with Dr. Lindsey <Christ Lindsey - Last Filed: 03/19/19 12:18> Meds - Medications Medications: Current Medications Acetaminophen (Tylenol 325mg Tab) 650 mg PO Q6H PRN PRN Reason: Fever >100.4 F Albuterol/Ipratropium (Duoneb 3 Mg/0.5 Mg (3 Ml) Ud) 3 ml IH [id number] [facility] Albuterol/Ipratropium (Duoneb 3 Mg/0.5 Mg (3 Ml) Ud) 3 ml IH Q2H PRN PRN Reason: Shortness of Breath Apixaban (Eliquis) 2.5 mg PO BID [facility]; Protocol Last Admin: 03/19/19 10:21 Dose: 2.5 mg Atorvastatin Calcium (Lipitor) 10 mg PO DIN [facility] Carvedilol (Coreg) 3.125 mg PO BID [facility] Last Admin: 03/19/19 10:21 Dose: 3.125 mg Ceftriaxone Sodium (Rocephin 1 Gram Ivpb) 1 gm in 100 mls @ 100 mls/hr IVPB DAILY [facility]; Protocol Stop: 03/26/19 10:01 Last Admin: 03/19/19 10:20 Dose: 100 mls/hr Azithromycin (Zithromax 500mg In Ns) 500 mg in 250 mls @ 167 mls/hr IVPB DAILY [facility]; Protocol Stop: 03/26/19 10:01 Last Admin: 03/19/19 10:20 Dose: 167 mls/hr Vancomycin HCl (Vancomycin 1gm) 1 gm in 250 mls @ 167 mls/hr IVPB Q12H [facility]; Protocol Levothyroxine Sodium (Synthroid) 50 mcg PO 0600 [facility] Last Admin: 03/19/19 10:21 Dose: 50 mcg Lisinopril (Zestril) 5 mg PO DAILY [facility] Last Admin: 03/19/19 10:21 Dose: 5 mg Methylprednisolone (Solu-Medrol) 30 mg IVP Q12 [facility] Last Admin: 03/19/19 10:20 Dose: 30 mg Results - Vital Signs Recent Vital Signs: Last Vital Signs Temp 97.7 F 03/19/19 11:53 Pulse 78 03/19/19 11:53 Resp 18 03/19/19 11:53 BP 120/59 L 03/19/19 11:53 Pulse Ox 96 03/19/19 06:00 - Labs Result Diagrams: 03/19/19 07:30 03/19/19 07:30 Labs: Laboratory Results - last 24 hr 03/18/19 03/18/19 03/18/19 20:37 20:47 20:47 WBC 8.3 RBC 4.80 Hgb 14.6 Hct 44.2 MCV 92.1 MCH 30.4 MCHC 33.0 RDW 12.4 Plt Count 130 MPV 11.5 H Neut % (Auto) 64.4 Lymph % (Auto) 10.7 L Wharton % (Auto) 24.8 H Eos % (Auto) 0.0 L Baso % (Auto) 0.1 Lymph # (Auto) 0.9 L Wharton # (Auto) 2.1 H Eos # (Auto) 0.0 Baso # (Auto) 0.01 Absolute Neuts (auto) 5.31 Neutrophils % (Manual) 71 H Band Neutrophils % 3 H Lymphocytes % (Manual) 6 L Monocytes % (Manual) 19 H Metamyelocytes % 1 Platelet Evaluation Normal Large Platelets Present pO2 23 L VBG pH 7.39 VBG pCO2 47.0 VBG HCO3 28.5 H VBG Total CO2 29.9 H VBG O2 Sat (Calc) 45.8 VBG Base Excess 2.8 H VBG Potassium 3.8 Sodium 131.0 L 133 Chloride 95.0 L 96 L Glucose 131 H Lactate 1.1 FiO2 21.0 Potassium 4.0 Carbon Dioxide 29 Anion Gap 13 BUN 15 Creatinine 0.6 L Est GFR ( Amer) > 60 Est GFR (Non-Af Amer) > 60 POC Glucose (mg/dL) Random Glucose 140 H Calcium 10.1 Magnesium 1.8 Total Bilirubin 1.1 AST 41 H ALT 34 Alkaline Phosphatase 89 Troponin I 0.02 NT-Pro-B Natriuret Pep 762 H Total Protein 7.2 Albumin 3.9 Globulin 3.3 Albumin/Globulin Ratio 1.2 Venous Blood Potassium 3.8 Urine Color Urine Appearance Urine pH Ur Specific Bronte Urine Protein Urine Glucose (UA) Urine Ketones Urine Blood Urine Nitrate Urine Bilirubin Urine Urobilinogen Ur Leukocyte Esterase Urine RBC Urine WBC Ur Epithelial Cells Urine Bacteria 03/19/19 03/19/19 03/19/19 00:04 07:08 07:30 WBC 6.2 D RBC 4.68 Hgb 14.1 Hct 43.3 MCV 92.5 MCH 30.1 MCHC 32.6 RDW 12.5 Plt Count 125 MPV 11.2 H Neut % (Auto) 83.5 H Lymph % (Auto) 9.4 L Wharton % (Auto) 6.9 H Eos % (Auto) 0.0 L Baso % (Auto) 0.2 Lymph # (Auto) 0.6 L Wharton # (Auto) 0.4 Eos # (Auto) 0.0 Baso # (Auto) 0.01 Absolute Neuts (auto) 5.17 Neutrophils % (Manual) Band Neutrophils % Lymphocytes % (Manual) Monocytes % (Manual) Metamyelocytes % Platelet Evaluation Large Platelets pO2 VBG pH VBG pCO2 VBG HCO3 VBG Total CO2 VBG O2 Sat (Calc) VBG Base Excess VBG Potassium Sodium Chloride Glucose Lactate FiO2 Potassium Carbon Dioxide Anion Gap BUN Creatinine Est GFR ( Amer) Est GFR (Non-Af Amer) POC Glucose (mg/dL) 175 H Random Glucose Calcium Magnesium Total Bilirubin AST ALT Alkaline Phosphatase Troponin I NT-Pro-B Natriuret Pep Total Protein Albumin Globulin Albumin/Globulin Ratio Venous Blood Potassium Urine Color Yellow Urine Appearance Clear Urine pH 6.0 Ur Specific Bronte <= 1.005 Urine Protein Negative Urine Glucose (UA) Negative Urine Ketones 15 H Urine Blood Small H Urine Nitrate Negative Urine Bilirubin Negative Urine Urobilinogen 0.2 Ur Leukocyte Esterase Negative Urine RBC 0 - 2 Urine WBC 0 - 2 Ur Epithelial Cells 0 - 2 Urine Bacteria None 03/19/19 03/19/19 07:30 11:54 WBC RBC Hgb Hct MCV MCH MCHC RDW Plt Count MPV Neut % (Auto) Lymph % (Auto) Wharton % (Auto) Eos % (Auto) Baso % (Auto) Lymph # (Auto) Wharton # (Auto) Eos # (Auto) Baso # (Auto) Absolute Neuts (auto) Neutrophils % (Manual) Band Neutrophils % Lymphocytes % (Manual) Monocytes % (Manual) Metamyelocytes % Platelet Evaluation Large Platelets pO2 VBG pH VBG pCO2 VBG HCO3 VBG Total CO2 VBG O2 Sat (Calc) VBG Base Excess VBG Potassium Sodium 140 Chloride 103 Glucose Lactate FiO2 Potassium 4.2 Carbon Dioxide 30 Anion Gap 12 BUN 14 Creatinine 0.6 L Est GFR ( Amer) > 60 Est GFR (Non-Af Amer) > 60 POC Glucose (mg/dL) 319 H Random Glucose 184 H Calcium 10.3 Magnesium Total Bilirubin 0.6 AST 35 ALT 31 Alkaline Phosphatase 86 Troponin I NT-Pro-B Natriuret Pep Total Protein 7.1 Albumin 3.8 Globulin 3.3 Albumin/Globulin Ratio 1.1 Venous Blood Potassium Urine Color Urine Appearance Urine pH Ur Specific Bronte Urine Protein Urine Glucose (UA) Urine Ketones Urine Blood Urine Nitrate Urine Bilirubin Urine Urobilinogen Ur Leukocyte Esterase Urine RBC Urine WBC Ur Epithelial Cells Urine Bacteria Attending/Attestation - Attestation I have personally seen and examined this patient.: Yes I have fully participated in the care of the patient.: Yes I have reviewed all pertinent clinical information: Yes
[2019-03-19] MEDS: cefTRIAXone 1 gm 1 GM/100 ML BAG IVPB SCH (10:20)
[2019-03-19] MEDS: MethylPREDNISolone 40 mg Vial IVP SCH ×2 (10:20→21:55)
[2019-03-19] MEDS: Azithromycin 500MG/NS 250ml 500 MG/250 ML BAG IVPB SCH (10:20)
[2019-03-19] MEDS: Levothyroxine 50 MCG TAB PO SCH (10:21)
--- NOTE | 2019-03-19 10:21 | CARD ---
APPROVED REPORT Date of service: 03/18/2019 EKG Measurement Heart [id number] <Conclusion> Normal sinus rhythm Possible Left atrial enlargement Incomplete right bundle branch block Non specific T-wave changes Abnormal ECG
--- NOTE | 2019-03-19 12:37 | CP.PCM.PCO ---
Physician Communication Note - Physician Communication Note Physician Communication Note: continue antibiotics as per ID for PNA
[2019-03-19] MEDS: Vancomycin 1gm in NS 250ml 1 GM/250 ML BAG IVPB SCH ×2 (12:42→23:43)
[2019-03-19] MEDS: Albuterol-Ipratrop 3 mg / 0.5 (3 ml) UD IH SCH ×2 (14:22→20:56)
--- NOTE | 2019-03-19 21:35 | HP ---
DATE OF EXAM: 03/19/2019 HISTORY OF PRESENT ILLNESS: The patient is 83 years old, who started going to Dr. Noriega as she was being treated by her and was given antibiotics. She states she was on antibiotic for 5 days, but was not feeling well. She was short of breath and having some chest congestion. She states her symptoms got worse. She was feeling weak, tired and short of breath. So, she came to emergency room for further evaluation. PAST MEDICAL HISTORY: She has significant past medical history of; 1. Hypertension. 2. Coronary artery disease. 3. Status post pacemaker placement. 4. History of hypothyroidism. 5. History of diverticulitis. ALLERGIES: SHE IS ALLERGIC TO DOG DANDRUFF AND CAT DANDRUFF. MEDICATIONS: At home, she is on; 1. Crestor 5 mg daily. 2. Lisinopril 5 mg daily. 3. Levothyroxine 50 mcg daily. 4. Breo. 5. Carvedilol. 6. Eliquis 2.5 mg twice a day. SOCIAL HISTORY: She lives by herself. She used to smoke in the remote past, but quit many, many, many years ago and no history of alcohol use. PHYSICAL EXAMINATION: GENERAL: She is awake and alert, worried about her cat who is home alone. Wants to go home early because she is worried about her cat. VITAL SIGNS: She is afebrile. Pulse 70, respiration 18 and blood pressure 120/59. LUNGS: Bilateral fair airflow. She has a soft crackle at her right lung base. HEART: S1 and S2, audible. ABDOMEN: Soft and nontender. No rebound. No guarding. NEUROLOGIC: The patient is awake and alert, able to communicate. EXTREMITIES: Bilateral legs no edema. LABORATORY DATA: WBC 6.2, hemoglobin 14, hematocrit 43 and platelets 125. Chemistry; sodium 140, potassium 4.2, chloride 103, CO2 of 30, BUN 14, creatinine 0.6 and blood sugar 319. She has small blood in the urine. CT scan of the chest was done that shows bronchiolitis and right middle lobe multifocal pneumonia, a lingula and left lower lobe aspiration pneumonitis. ASSESSMENT: 1. Multilobar pneumonia. 2. History of hypertension. 3. Coronary artery disease. 4. Status post pacemaker placement. PLAN: We will continue the patient on Rocephin. We will resume her Coreg. She has DuoNeb every 6 hours and every 2 hours as needed. We will resume her Eliquis. She is on Lipitor. Continue her on Rocephin and Zithromax. Vancomycin has been started. We will monitor her blood pressure. Follow up in the a.m. Letha Garza MD
[2019-03-20] MEDS: Levothyroxine 50 MCG TAB PO SCH (06:15)
[2019-03-20] MEDS: Albuterol-Ipratrop 3 mg / 0.5 (3 ml) UD IH SCH ×2 (09:10→19:42)
[2019-03-20] MEDS: MethylPREDNISolone 40 mg Vial IVP SCH ×2 (10:51→22:24)
[2019-03-20] MEDS: cefTRIAXone 1 gm 1 GM/100 ML BAG IVPB SCH (10:51)
[2019-03-20] MEDS: Azithromycin 500MG/NS 250ml 500 MG/250 ML BAG IVPB SCH (10:52)
--- NOTE | 2019-03-20 14:09 | CP.PCM.PN ---
<José Dueñas - Last Filed: 03/20/19 14:49> Subjective - Date & Time of Evaluation Date of Evaluation: 03/20/19 Time of Evaluation: 10:40 - Subjective Subjective: Infectious disease progress note: Patient seen and examined at bedside. No acute events overnight. States that her cough is better today. No other complaints. 12 point ROS performed and negative unless stated above. Objective - Vital Signs/Intake and Output Vital Signs (last 24 hours): Temp Pulse Resp BP Pulse Ox 97.8 F 87 20 135/74 95 03/20/19 11:54 03/20/19 11:54 03/20/19 11:54 03/20/19 11:54 03/20/19 06:00 Intake and Output: 03/20/19 03/20/19 06:59 18:59 Intake Total 540 350 Output Total 3 Balance 537 350 - Medications Medications: Current Medications Acetaminophen (Tylenol 325mg Tab) 650 mg PO Q6H PRN PRN Reason: Fever >100.4 F Albuterol/Ipratropium (Duoneb 3 Mg/0.5 Mg (3 Ml) Ud) 3 ml IH [id number] [facility] Last Admin: 03/20/19 09:10 Dose: 3 ml Albuterol/Ipratropium (Duoneb 3 Mg/0.5 Mg (3 Ml) Ud) 3 ml IH Q2H PRN PRN Reason: Shortness of Breath Apixaban (Eliquis) 2.5 mg PO BID [facility]; Protocol Last Admin: 03/20/19 10:50 Dose: 2.5 mg Atorvastatin Calcium (Lipitor) 10 mg PO DIN [facility] Last Admin: 03/19/19 17:06 Dose: 10 mg Carvedilol (Coreg) 3.125 mg PO BID [facility] Last Admin: 03/20/19 10:50 Dose: 3.125 mg Ceftriaxone Sodium (Rocephin 1 Gram Ivpb) 1 gm in 100 mls @ 100 mls/hr IVPB DAILY [facility]; Protocol Stop: 03/26/19 10:01 Last Admin: 03/20/19 10:51 Dose: 100 mls/hr Azithromycin (Zithromax 500mg In Ns) 500 mg in 250 mls @ 167 mls/hr IVPB DAILY [facility]; Protocol Stop: 03/26/19 10:01 Last Admin: 03/20/19 10:52 Dose: 167 mls/hr Vancomycin HCl (Vancomycin 1gm) 1 gm in 250 mls @ 167 mls/hr IVPB Q12H [facility]; Protocol Last Admin: 03/19/19 23:43 Dose: 167 mls/hr Levothyroxine Sodium (Synthroid) 50 mcg PO 0600 [facility] Last Admin: 03/20/19 06:15 Dose: 50 mcg Lisinopril (Zestril) 5 mg PO DAILY [facility] Last Admin: 03/20/19 10:51 Dose: 5 mg Methylprednisolone (Solu-Medrol) 30 mg IVP Q12 [facility] Last Admin: 03/20/19 10:51 Dose: 30 mg Promethazine HCl/Dextromethorphan (Phenergan Dm Syrup) 5 ml PO Q6H PRN PRN Reason: Cough - Labs Labs: 03/19/19 07:30 03/19/19 07:30 - Constitutional Appears: No Acute Distress - Head Exam Head Exam: ATRAUMATIC, NORMOCEPHALIC - Eye Exam Eye Exam: EOMI - ENT Exam ENT Exam: Mucous Membranes Moist - Respiratory Exam Respiratory Exam: Clear to Ausculation Bilateral, Rhonchi. absent: Rales, Wheezes - Cardiovascular Exam Cardiovascular Exam: REGULAR RHYTHM, +S1, +S2 - GI/Abdominal Exam GI & Abdominal Exam: Soft. absent: Tenderness - Extremities Exam Extremities Exam: absent: Calf Tenderness, Pedal Edema - Neurological Exam Neurological Exam: Alert, Awake, Oriented x3 - Psychiatric Exam Psychiatric exam: Normal Mood - Skin Skin Exam: Intact, Warm Assessment and Plan - Assessment and Plan (Free Text) Assessment: Sepsis 2/2 b/l Community-acquired pneumonia Atrial fibrillation on Eliquis Coronary artery disease Hypothyroid Hypertension COPD Cont on Rocephin and azithromycin Cont with vancomycin since the patient has a pacemaker CT of the chest showed multifocal airspace modality that is present in the lingula most compatible with early infiltrates. Airspace modality in the right middle lobe as well Follow-up septic work-up including blood and urine cultures Follow-up procalcitonin, leigonella urine ag Continue to monitor for any changes Case and plan to be reviewed and discussed with Dr. Lindsey <Christ Lindsey - Last Filed: 03/20/19 14:53> Objective - Vital Signs/Intake and Output Vital Signs (last 24 hours): Temp Pulse Resp BP Pulse Ox 97.8 F 87 20 135/74 95 03/20/19 11:54 03/20/19 11:54 03/20/19 11:54 03/20/19 11:54 03/20/19 06:00 Intake and Output: 03/20/19 03/20/19 06:59 18:59 Intake Total 540 350 Output Total 3 Balance 537 350 - Medications Medications: Current Medications Acetaminophen (Tylenol 325mg Tab) 650 mg PO Q6H PRN PRN Reason: Fever >100.4 F Albuterol/Ipratropium (Duoneb 3 Mg/0.5 Mg (3 Ml) Ud) 3 ml IH [id number] [facility] Last Admin: 03/20/19 09:10 Dose: 3 ml Albuterol/Ipratropium (Duoneb 3 Mg/0.5 Mg (3 Ml) Ud) 3 ml IH Q2H PRN PRN Reason: Shortness of Breath Apixaban (Eliquis) 2.5 mg PO BID [facility]; Protocol Last Admin: 03/20/19 10:50 Dose: 2.5 mg Atorvastatin Calcium (Lipitor) 10 mg PO DIN [facility] Last Admin: 03/19/19 17:06 Dose: 10 mg Carvedilol (Coreg) 3.125 mg PO BID [facility] Last Admin: 03/20/19 10:50 Dose: 3.125 mg Ceftriaxone Sodium (Rocephin 1 Gram Ivpb) 1 gm in 100 mls @ 100 mls/hr IVPB DAILY [facility]; Protocol Stop: 03/26/19 10:01 Last Admin: 03/20/19 10:51 Dose: 100 mls/hr Azithromycin (Zithromax 500mg In Ns) 500 mg in 250 mls @ 167 mls/hr IVPB DAILY [facility]; Protocol Stop: 03/26/19 10:01 Last Admin: 03/20/19 10:52 Dose: 167 mls/hr Levothyroxine Sodium (Synthroid) 50 mcg PO 0600 [facility] Last Admin: 03/20/19 06:15 Dose: 50 mcg Lisinopril (Zestril) 5 mg PO DAILY [facility] Last Admin: 03/20/19 10:51 Dose: 5 mg Methylprednisolone (Solu-Medrol) 30 mg IVP Q12 [facility] Last Admin: 03/20/19 10:51 Dose: 30 mg Promethazine HCl/Dextromethorphan (Phenergan Dm Syrup) 5 ml PO Q6H PRN PRN Reason: Cough - Labs Labs: 03/19/19 07:30 03/19/19 07:30 Attending/Attestation - Attestation I have personally seen and examined this patient.: Yes I have fully participated in the care of the patient.: Yes I have reviewed all pertinent clinical information, including history, physical exam and plan: Yes
--- NOTE | 2019-03-20 14:39 | PN ---
DATE: 03/20/2019 SUBJECTIVE: The patient is an 83-year-old, seen and examined, doing a little better. Has cough and congestion, gets short of breath on walking, pulse ox is 92% on exertion. PHYSICAL EXAMINATION: VITAL SIGNS: She is afebrile. Pulse 87, respirations 20, blood pressure 135/74. LUNGS: Bilateral fair airflow. No rhonchi or crackle. She has soft crackle and expiratory rhonchi most on the right, on the left middle in the lower lung area. HEART: S1 and S2 audible. ABDOMEN: Soft and nontender. No rebound. No guarding. NEUROLOGICAL: She is awake and alert, able to communicate. LABORATORY DATA: WBC is 6.2, hemoglobin 14, hematocrit 43, platelets 125. Chemistries; blood sugar is 211. Blood culture and urine cultures are negative. ASSESSMENT: 1. Multifocal pneumonia in the right middle lobe, lingula and the left lower lobe probably aspiration pneumonitis. 2. Non-insulin dependent diabetes. 3. 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 4. Coronary artery disease. 5. Hypothyroidism. PLAN: We will continue the patient on Rocephin and Zithromax. The patient is clinically and hemodynamically stable. We will discontinue telemetry. She might be a good candidate for TCU to complete her course of antibiotics and received therapy. We will request for TCU evaluation and excepted will be transferred to TCU tomorrow. Letha Garza MD
[2019-03-20] MEDS: Vancomycin 1gm in NS 250ml 1 GM/250 ML BAG IVPB SCH (14:51)
[2019-03-21] MEDS: Albuterol-Ipratrop 3 mg / 0.5 (3 ml) UD IH SCH ×4 (01:00→20:01)
[2019-03-21] MEDS: Levothyroxine 50 MCG TAB PO SCH (06:17)
[2019-03-21 07:03] LABS: BASO # 0.01 K/mm3 (0.0-2.0); BASO % 0.1 % (0.0-3.0); HEMOGLOBIN 13.6 g/dL (12.0-16.0); LYMPH # 0.7 (1.2-3.4); LYMPH % 5.4 % (22.0-35.0); MEAN CELL VOLUME 92.8 fl (80.0-105.0); MEAN CORPUSCULAR HEMOGLOBIN 29.6 pg (25.0-35.0); MEAN CORPUSCULAR HGB CONC 31.9 g/dl (31.0-37.0); MEAN PLATELET VOLUME 11.2 fl (7.0-11.0); MONO # 0.7 (0.1-0.6); MONO % 4.9 % (1.0-6.0); RBC 4.6 10^6/uL (3.5-6.1); RED CELL DISTRIBUTION WIDTH 12.7 % (11.5-14.5); WHITE BLOOD COUNT 13.6 10^3/uL (4.5-11.0)
[2019-03-21 07:14] LABS: ALB/GLOB RATIO 1.2 (1.1-1.8); ALBUMIN 3.5 g/dL (3.0-4.8); ALT/SGPT 98 U/L (7-56); AST/SGOT 64 U/L (14-36); BLOOD UREA NITROGEN 21 mg/dL (7-21); GFR NON-AFRICAN AMERICAN > 60
[2019-03-21] MEDS: MethylPREDNISolone 40 mg Vial IVP SCH ×2 (09:29→22:26)
[2019-03-21] MEDS: cefTRIAXone 1 gm 1 GM/100 ML BAG IVPB SCH (09:30)
--- NOTE | 2019-03-21 13:36 | CP.PCM.PCO ---
Physician Communication Note - Physician Communication Note Physician Communication Note: Continue IV antibiotics as per ID for treatment of PNA
--- NOTE | 2019-03-21 14:32 | PN ---
DATE: 03/21/2019 SUBJECTIVE: The patient is 83 years old, seen and examined, still has cough and congestion. PHYSICAL EXAMINATION: VITAL SIGNS: She is afebrile. Pulse 89, respirations 20 and blood pressure 178/83. LUNGS: Bilateral crackles, more pronounced posteriorly in the right middle and the left lower lung area. HEART: S1 and S2, audible. ABDOMEN: Soft and nontender. No rebound. No guarding. NEUROLOGIC: The patient is awake and alert, able to communicate, feels anxious, wants to go home, worried about cat. LABORATORY DATA: WBC 13.6, hemoglobin 13.6, hematocrit 42.7 and platelets 193. Chemistry; sodium 141, potassium 4.3, chloride 106, CO2 of 26, BUN 21, creatinine 0.6, blood sugar 137. AST 64, ALT 98. Legionella test is negative. Blood culture and urine cultures are negative. ASSESSMENT: 1. Community-acquired pneumonia with failed outpatient treatment. The patient has multifocal pneumonia in the right middle lobe and lingula in the left lower lobe consistent with pneumonitis. 2. Coronary artery disease, status post angioplasty. 3. 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 4. Anxiety disorder. 5. Hypertension. 6. Hyperlipidemia. 7. Chronic atrial fibrillation. 8. History of chronic obstructive pulmonary disease. PLAN: We will continue the patient on current medications that include carvedilol. She is on nebulizer treatment. She is on Eliquis. She is on atorvastatin. She is on Rocephin and cut down her steroid. She is on Zithromax also. The patient lives alone, still have persistent cough. She needs to be monitored another day or two. Since she has taken the course of antibiotic as outpatient with no significant improvement, she will benefit from aggressive nebulizer treatment along with antibiotics, cut down her steroid. We will follow up the patient in a.m. Letha Garza MD
--- NOTE | 2019-03-21 15:47 | CP.PCM.PN ---
<José Dueñas - Last Filed: 03/21/19 15:42> Subjective - Date & Time of Evaluation Date of Evaluation: 03/21/19 Time of Evaluation: 08:55 - Subjective Subjective: Infectious disease progress note: Patient seen and examined at bedside. No acute events overnight. Patient states that her cough has improved. No other complaints. 12 point ROS performed and negative unless stated above. Objective - Vital Signs/Intake and Output Vital Signs (last 24 hours): Temp Pulse Resp BP Pulse Ox 97.5 F L 89 20 178/83 H 95 03/21/19 07:45 03/21/19 07:45 03/21/19 07:45 03/21/19 09:30 03/21/19 07:45 Intake and Output: 03/21/19 03/21/19 06:59 18:59 Intake Total 900 Balance 900 - Medications Medications: Current Medications Acetaminophen (Tylenol 325mg Tab) 650 mg PO Q6H PRN PRN Reason: Fever >100.4 F Albuterol/Ipratropium (Duoneb 3 Mg/0.5 Mg (3 Ml) Ud) 3 ml IH [id number] [facility] Last Admin: 03/21/19 13:54 Dose: 3 ml Albuterol/Ipratropium (Duoneb 3 Mg/0.5 Mg (3 Ml) Ud) 3 ml IH Q2H PRN PRN Reason: Shortness of Breath Apixaban (Eliquis) 2.5 mg PO BID [facility]; Protocol Last Admin: 03/21/19 09:29 Dose: 2.5 mg Atorvastatin Calcium (Lipitor) 10 mg PO DIN [facility] Last Admin: 03/20/19 17:05 Dose: 10 mg Azithromycin (Zithromax) 500 mg PO DAILY [facility]; Protocol Stop: 03/28/19 10:01 Last Admin: 03/21/19 09:30 Dose: 500 mg Carvedilol (Coreg) 3.125 mg PO BID [facility] Last Admin: 03/21/19 09:30 Dose: 3.125 mg Ceftriaxone Sodium (Rocephin 1 Gram Ivpb) 1 gm in 100 mls @ 100 mls/hr IVPB DAILY [facility]; Protocol Stop: 03/26/19 10:01 Last Admin: 03/21/19 09:30 Dose: 100 mls/hr Levothyroxine Sodium (Synthroid) 50 mcg PO 0600 [facility] Last Admin: 03/21/19 06:17 Dose: 50 mcg Lisinopril (Zestril) 5 mg PO DAILY [facility] Last Admin: 03/21/19 09:30 Dose: 5 mg Methylprednisolone (Solu-Medrol) 20 mg IVP Q12 [facility] Prednisone (Prednisone Tab) 0 mg PO DAILY [facility]; Taper Stop: 04/01/19 09:59 Promethazine HCl/Dextromethorphan (Phenergan Dm Syrup) 5 ml PO Q6H PRN PRN Reason: Cough - Labs Labs: 03/21/19 06:40 03/21/19 06:40 - Constitutional Appears: No Acute Distress - Head Exam Head Exam: ATRAUMATIC, NORMOCEPHALIC - Eye Exam Eye Exam: EOMI - ENT Exam ENT Exam: Mucous Membranes Moist - Respiratory Exam Respiratory Exam: Clear to Ausculation Bilateral. absent: Wheezes - Cardiovascular Exam Cardiovascular Exam: REGULAR RHYTHM, +S1, +S2 - GI/Abdominal Exam GI & Abdominal Exam: Soft. absent: Tenderness - Extremities Exam Extremities Exam: absent: Calf Tenderness, Pedal Edema - Neurological Exam Neurological Exam: Alert, Awake, Oriented x3 - Psychiatric Exam Psychiatric exam: Normal Mood - Skin Skin Exam: Dry, Warm Assessment and Plan - Assessment and Plan (Free Text) Assessment: Sepsis 2/2 b/l Community-acquired pneumonia Atrial fibrillation on Eliquis Coronary artery disease Hypothyroid Hypertension COPD Cont on Rocephin and azithromycin; upon discharge may continue azithromycin 500mg for 5 days d/c vancomycin since the patient has a pacemaker Follow-up septic work-up including blood and urine cultures Continue to monitor for any changes Case and plan to be reviewed and discussed with Dr. Lindsey <Christ Lindsey - Last Filed: 03/21/19 15:50> Objective - Vital Signs/Intake and Output Vital Signs (last 24 hours): Temp Pulse Resp BP Pulse Ox 97.5 F L 89 20 178/83 H 95 03/21/19 07:45 03/21/19 07:45 03/21/19 07:45 03/21/19 09:30 03/21/19 07:45 Intake and Output: 03/21/19 03/21/19 06:59 18:59 Intake Total 900 Balance 900 - Medications Medications: Current Medications Acetaminophen (Tylenol 325mg Tab) 650 mg PO Q6H PRN PRN Reason: Fever >100.4 F Albuterol/Ipratropium (Duoneb 3 Mg/0.5 Mg (3 Ml) Ud) 3 ml IH [id number] [facility] Last Admin: 03/21/19 13:54 Dose: 3 ml Albuterol/Ipratropium (Duoneb 3 Mg/0.5 Mg (3 Ml) Ud) 3 ml IH Q2H PRN PRN Reason: Shortness of Breath Apixaban (Eliquis) 2.5 mg PO BID [facility]; Protocol Last Admin: 03/21/19 09:29 Dose: 2.5 mg Atorvastatin Calcium (Lipitor) 10 mg PO DIN [facility] Last Admin: 03/20/19 17:05 Dose: 10 mg Azithromycin (Zithromax) 500 mg PO DAILY [facility]; Protocol Stop: 03/28/19 10:01 Last Admin: 03/21/19 09:30 Dose: 500 mg Carvedilol (Coreg) 3.125 mg PO BID [facility] Last Admin: 03/21/19 09:30 Dose: 3.125 mg Ceftriaxone Sodium (Rocephin 1 Gram Ivpb) 1 gm in 100 mls @ 100 mls/hr IVPB DAILY [facility]; Protocol Stop: 03/26/19 10:01 Last Admin: 03/21/19 09:30 Dose: 100 mls/hr Levothyroxine Sodium (Synthroid) 50 mcg PO 0600 [facility] Last Admin: 03/21/19 06:17 Dose: 50 mcg Lisinopril (Zestril) 5 mg PO DAILY [facility] Last Admin: 03/21/19 09:30 Dose: 5 mg Methylprednisolone (Solu-Medrol) 20 mg IVP Q12 [facility] Prednisone (Prednisone Tab) 0 mg PO DAILY [facility]; Taper Stop: 04/01/19 09:59 Promethazine HCl/Dextromethorphan (Phenergan Dm Syrup) 5 ml PO Q6H PRN PRN Reason: Cough - Labs Labs: 03/21/19 06:40 03/21/19 06:40 Attending/Attestation - Attestation I have personally seen and examined this patient.: Yes I have fully participated in the care of the patient.: Yes I have reviewed all pertinent clinical information, including history, physical exam and plan: Yes
[2019-03-21] MEDS: Promethazine DM 6.25 mg-15 mg/5 ml Syrup PO PRN (15:57)
[2019-03-21] MEDS ORDERED: Melatonin 3 MG Tab PO STA (21:30)
[2019-03-22] MEDS: Albuterol-Ipratrop 3 mg / 0.5 (3 ml) UD IH SCH ×4 (01:07→19:57)
[2019-03-22] MEDS: Levothyroxine 50 MCG TAB PO SCH (06:31)
[2019-03-22] MEDS: MethylPREDNISolone 40 mg Vial IVP SCH ×2 (09:57→22:45)
[2019-03-22] MEDS: cefTRIAXone 1 gm 1 GM/100 ML BAG IVPB SCH (09:57)
--- NOTE | 2019-03-22 14:25 | PN ---
DATE: 03/22/2019 SUBJECTIVE: The patient is 83 years old, who lives alone at home with her cat, has failed outpatient treatment, came to the emergency room for increasing shortness of breath, started on doxycycline, Zithromax and Rocephin, seems to be improving, still has cough and congestion and productive cough. PHYSICAL EXAMINATION: VITAL SIGNS: The patient is afebrile. Pulse 64, respirations 15, and blood pressure 149/82. LUNGS: Bilateral soft crackles, more so in the middle and the lower lung region. HEART: S1 and S2, audible. ABDOMEN: Soft and nontender. No rebound. No guarding. NEUROLOGIC: The patient is awake and alert, able to communicate, ambulatory. ASSESSMENT: 1. Bilateral multilobar pneumonia. 2. Coronary artery disease, status post . 3. Hyperlipidemia. 4. Chronic atrial fibrillation. 5. Hypothyroidism. PLAN: We will continue the patient on current IV antibiotics, continue nebulizer treatment, encourage ambulation. If the patient remained stable, we will discharge in a.m. Letha Garza MD
--- NOTE | 2019-03-22 15:18 | CP.PCM.PN ---
<José Dueñas - Last Filed: 03/22/19 16:39> Subjective - Date & Time of Evaluation Date of Evaluation: 03/22/19 Time of Evaluation: 07:00 - Subjective Subjective: Infectious disease progress note: Patient seen and examined at bedside. No acute events overnight. No fevers. No other complaints. 12 point ROS performed and negative unless stated above. Objective - Vital Signs/Intake and Output Vital Signs (last 24 hours): Temp Pulse Resp BP Pulse Ox 98.2 F 65 15 149/82 94 L 03/22/19 06:00 03/22/19 09:58 03/22/19 06:00 03/22/19 09:58 03/22/19 06:00 Intake and Output: 03/22/19 03/22/19 06:59 18:59 Intake Total 240 Balance 240 - Medications Medications: Current Medications Acetaminophen (Tylenol 325mg Tab) 650 mg PO Q6H PRN PRN Reason: Fever >100.4 F Albuterol/Ipratropium (Duoneb 3 Mg/0.5 Mg (3 Ml) Ud) 3 ml IH [id number] [facility] Last Admin: 03/22/19 13:36 Dose: 3 ml Albuterol/Ipratropium (Duoneb 3 Mg/0.5 Mg (3 Ml) Ud) 3 ml IH Q2H PRN PRN Reason: Shortness of Breath Apixaban (Eliquis) 2.5 mg PO BID [facility]; Protocol Last Admin: 03/22/19 09:56 Dose: 2.5 mg Atorvastatin Calcium (Lipitor) 10 mg PO DIN [facility] Last Admin: 03/21/19 17:15 Dose: 10 mg Azithromycin (Zithromax) 500 mg PO DAILY [facility]; Protocol Stop: 03/28/19 10:01 Last Admin: 03/22/19 09:58 Dose: 500 mg Carvedilol (Coreg) 3.125 mg PO BID [facility] Last Admin: 03/22/19 09:55 Dose: 3.125 mg Ceftriaxone Sodium (Rocephin 1 Gram Ivpb) 1 gm in 100 mls @ 100 mls/hr IVPB DAILY [facility]; Protocol Stop: 03/26/19 10:01 Last Admin: 03/22/19 09:57 Dose: 100 mls/hr Levothyroxine Sodium (Synthroid) 50 mcg PO 0600 [facility] Last Admin: 03/22/19 06:31 Dose: 50 mcg Lisinopril (Zestril) 5 mg PO DAILY [facility] Last Admin: 03/22/19 09:58 Dose: 5 mg Methylprednisolone (Solu-Medrol) 20 mg IVP Q12 [facility] Last Admin: 03/22/19 09:57 Dose: Not Given Prednisone (Prednisone Tab) 40 mg PO DAILY [facility]; Taper Stop: 04/01/19 09:59 Last Admin: 03/22/19 09:56 Dose: 40 mg Promethazine HCl/Dextromethorphan (Phenergan Dm Syrup) 5 ml PO Q6H PRN PRN Reason: Cough Last Admin: 03/21/19 15:57 Dose: 5 ml - Labs Labs: 03/21/19 06:40 03/21/19 06:40 - Constitutional Appears: No Acute Distress - Head Exam Head Exam: ATRAUMATIC, NORMOCEPHALIC - Eye Exam Eye Exam: EOMI - ENT Exam ENT Exam: Mucous Membranes Moist - Respiratory Exam Respiratory Exam: Clear to Ausculation Bilateral. absent: Wheezes - Cardiovascular Exam Cardiovascular Exam: RRR, +S1, +S2 - GI/Abdominal Exam GI & Abdominal Exam: Soft. absent: Tenderness - Neurological Exam Neurological Exam: Alert, Awake - Skin Skin Exam: Dry, Warm Assessment and Plan - Assessment and Plan (Free Text) Assessment: Sepsis 2/2 b/l Community-acquired pneumonia Atrial fibrillation on Eliquis Coronary artery disease Hypothyroid Hypertension COPD Cont on Rocephin and azithromycin; upon discharge may continue azithromycin 500mg for 5 days Follow-up septic work-up including blood and urine cultures - all negative Continue to monitor for any changes Case and plan to be reviewed and discussed with Dr. Lindsey <Christ Lindsey - Last Filed: 03/22/19 16:41> Objective - Vital Signs/Intake and Output Vital Signs (last 24 hours): Temp Pulse Resp BP Pulse Ox 98.2 F 65 15 149/82 94 L 03/22/19 06:00 03/22/19 09:58 03/22/19 06:00 03/22/19 09:58 03/22/19 06:00 Intake and Output: 03/22/19 03/22/19 06:59 18:59 Intake Total 240 Balance 240 - Medications Medications: Current Medications Acetaminophen (Tylenol 325mg Tab) 650 mg PO Q6H PRN PRN Reason: Fever >100.4 F Albuterol/Ipratropium (Duoneb 3 Mg/0.5 Mg (3 Ml) Ud) 3 ml IH [id number] [facility] Last Admin: 03/22/19 13:36 Dose: 3 ml Albuterol/Ipratropium (Duoneb 3 Mg/0.5 Mg (3 Ml) Ud) 3 ml IH Q2H PRN PRN Reason: Shortness of Breath Apixaban (Eliquis) 2.5 mg PO BID [facility]; Protocol Last Admin: 03/22/19 09:56 Dose: 2.5 mg Atorvastatin Calcium (Lipitor) 10 mg PO DIN [facility] Last Admin: 03/21/19 17:15 Dose: 10 mg Azithromycin (Zithromax) 500 mg PO DAILY [facility]; Protocol Stop: 03/28/19 10:01 Last Admin: 03/22/19 09:58 Dose: 500 mg Carvedilol (Coreg) 3.125 mg PO BID [facility] Last Admin: 03/22/19 09:55 Dose: 3.125 mg Ceftriaxone Sodium (Rocephin 1 Gram Ivpb) 1 gm in 100 mls @ 100 mls/hr IVPB DAILY [facility]; Protocol Stop: 03/26/19 10:01 Last Admin: 03/22/19 09:57 Dose: 100 mls/hr Levothyroxine Sodium (Synthroid) 50 mcg PO 0600 [facility] Last Admin: 03/22/19 06:31 Dose: 50 mcg Lisinopril (Zestril) 5 mg PO DAILY [facility] Last Admin: 03/22/19 09:58 Dose: 5 mg Methylprednisolone (Solu-Medrol) 20 mg IVP Q12 [facility] Last Admin: 03/22/19 09:57 Dose: Not Given Prednisone (Prednisone Tab) 40 mg PO DAILY [facility]; Taper Stop: 04/01/19 09:59 Last Admin: 03/22/19 09:56 Dose: 40 mg Promethazine HCl/Dextromethorphan (Phenergan Dm Syrup) 5 ml PO Q6H PRN PRN Reason: Cough Last Admin: 03/21/19 15:57 Dose: 5 ml - Labs Labs: 03/21/19 06:40 03/21/19 06:40 Attending/Attestation - Attestation I have personally seen and examined this patient.: Yes I have fully participated in the care of the patient.: Yes I have reviewed all pertinent clinical information, including history, physical exam and plan: Yes
--- NOTE | 2019-03-22 16:44 | CP.PCM.PCO ---
Physician Communication Note - Physician Communication Note Physician Communication Note: b/l PNA,on Rocephin,IV solu 20 q12,chest congestion,reasses in am per Pmd.
[2019-03-22] MEDS ORDERED: Melatonin 3 MG Tab PO STA (22:44)
[2019-03-23] MEDS: Albuterol-Ipratrop 3 mg / 0.5 (3 ml) UD IH SCH ×4 (01:57→19:29)
[2019-03-23] MEDS: Levothyroxine 50 MCG TAB PO SCH (06:02)
[2019-03-23 09:14] LABS: MEAN CORPUSCULAR HEMOGLOBIN 30.3 pg (25.0-35.0); MEAN CORPUSCULAR HGB CONC 32.6 g/dl (31.0-37.0); MEAN PLATELET VOLUME 10.6 fl (7.0-11.0); RBC 5.15 10^6/uL (3.5-6.1); RED CELL DISTRIBUTION WIDTH 12.5 % (11.5-14.5); WHITE BLOOD COUNT 15.7 10^3/uL (4.5-11.0)
[2019-03-23 09:16] LABS: HEMOGLOBIN 15.6 g/dL (12.0-16.0)
--- NOTE | 2019-03-23 10:20 | PN ---
DATE: 03/23/2019 SUBJECTIVE: The patient is in bed in no acute distress, nontoxic. PHYSICAL EXAMINATION: VITAL SIGNS: Temperature is 98, blood pressure is 176/90, respiratory rate of 18. HEENT: Unremarkable. NECK: Supple. LUNGS: Have decreased breath sounds. HEART: Normal S1, S2. ABDOMEN: Soft and nontender. LABORATORY EXAMINATION: Reveals a white count of 13,016. Creatinine is 0.6 and urinalysis is noted. Toxicology is reviewed. Serology is reviewed. Microbiology cultures are negative and review of orders reveals the patient to be on ceftriaxone and Zithromax. ASSESSMENT AND PLAN: This is an 83-year-old female who was admitted with sepsis with bilateral community-acquired pneumonia, atrial fibrillation and coronary artery disease, hypothyroidism, hypertension. We will discontinue the Rocephin. The patient has had adequate therapy. We will check on the repeat white count and complete with 5 days of p.o. Zithromax. Christ Lindsey MD
[2019-03-23] MEDS: MethylPREDNISolone 40 mg Vial IVP SCH ×2 (10:44→21:21)
--- NOTE | 2019-03-23 22:39 | DS ---
HISTORY OF PRESENT ILLNESS: The patient is an 83-year-old who was being treated by . She was given antibiotic, but she kept on having cough and congestion and became increasingly short of breath. So, she came to ER and she was found to have bilateral pneumonia and bronchiolitis has been on IV antibiotic, doing well and wants to go home. She is very worried about her cat, who was home alone. PHYSICAL EXAMINATION: GENERAL: Today,she is awake, alert and able to communicate. VITAL SIGNS: She is afebrile. Pulse 80, respiration 20 and blood pressure 138/77. LUNGS: Bilateral soft crackle in the left middle lung area. HEART: S1 and S2, audible. ABDOMEN: Soft and nontender. No rebound. No guarding. NEUROLOGIC: The patient is awake, alert and able to communicate. LABORATORY DATA: WBC 15.7, hemoglobin 15, hematocrit 47 and platelet 227. Chemistry; blood sugar is 160. Legionella titers are negative. Blood culture and urine cultures are negative. ASSESSMENT: 1. Bilateral pneumonia, multifocal with bronchiolitis. 2. History of hypertension. 3. Coronary artery disease. 4. Status post pacemaker, because of tachybrady syndrome. PLAN: The patient is being discharge home on Vantin 100 mg twice a day for five days, doxycycline 100 mg twice a day for 5 days, prednisone 20 mg daily and Phenergan DM one teaspoon every 6 hours p.r.n. She will followup with her PMD. Letha Garza MD
[2019-03-24] MEDS ORDERED: Melatonin 3 MG Tab PO ONE (00:40)
[2019-03-24] MEDS: Promethazine DM 6.25 mg-15 mg/5 ml Syrup PO PRN ×3 (01:01→21:25)
[2019-03-24] MEDS: Albuterol-Ipratrop 3 mg / 0.5 (3 ml) UD IH SCH ×4 (02:07→19:23)
[2019-03-24] MEDS: Levothyroxine 50 MCG TAB PO SCH (05:31)
[2019-03-24] MEDS: MethylPREDNISolone 40 mg Vial IVP SCH ×2 (09:28→21:24)
[2019-03-24] MEDS: cefTRIAXone 1 gm 1 GM/100 ML BAG IVPB SCH (09:29)
--- NOTE | 2019-03-24 10:35 | PN ---
DATE: 03/24/2019 SUBJECTIVE: The patient is in bed in no acute distress, nontoxic. PHYSICAL EXAMINATION VITAL SIGNS: The patient is in bed with a temperature of 97, blood pressure is 120/70, respiratory rate of 18. HEENT: Unremarkable. NECK: Supple. LUNGS: Have decreased breath sounds. HEART: Normal S1, S2. ABDOMEN: Soft. LABORATORY EXAMINATION: Reveals a white count of 15,700, hemoglobin of 15, creatinine is 0.6. Urinalysis is noted. Microbiology reveals the blood cultures are negative. The nares MRSA is negative. Urine cultures negative. ASSESSMENT AND PLAN: This is an 83-year-old female who was seen in this morning in [facility], admitted with sepsis, bilateral community-acquired pneumonia, atrial fibrillation, coronary artery disease, hypothyroidism, hypertension, would complete 5 days of p.o. Zithromax. Christ Lindsey MD
--- NOTE | 2019-03-24 13:34 | PN ---
DATE: 03/24/2019 SUBJECTIVE: The patient is 83 years old, seen and examined, and still complains of cough, getting better. The patient is ready to be discharged, but son was concerned, because nobody was around. She lives by herself, and he requested that she should not be discharged, because he is going to be out of town and she lives alone and still did not look well. So her stay was extended for safety reason. She still has cough, but much better than before. PHYSICAL EXAMINATION: VITAL SIGNS: She is afebrile. Pulse 63, respirations 20, blood pressure 172/78. LUNGS: Bilateral soft crackles improved than before. HEART: S1 and S2 audible. ABDOMEN: Soft, nontender. No rebound. No guarding. NEUROLOGIC: The patient is awake and alert, able to communicate. LABORATORY DATA: Blood sugar is 160. ASSESSMENT: 1. Bilateral pneumonia. 2. Chronic atrial fibrillation. 3. 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 4. Hypertension. 5. Hyperlipidemia. 6. Anxiety disorder. PLAN: Currently, the patient is on Coreg. She is on Eliquis. She is on nebulizer treatment. She is on cough medicine as needed. She is on IV Rocephin and IV steroid, we will continue that. We will re-evaluate in a.m. and make possible discharge plan. Letha Garza MD
[2019-03-24] MEDS ORDERED: Melatonin 3 MG Tab PO PRN (19:43)
[2019-03-25] MEDS: Albuterol-Ipratrop 3 mg / 0.5 (3 ml) UD IH SCH ×3 (01:11→13:11)
[2019-03-25] MEDS: Levothyroxine 50 MCG TAB PO SCH (05:52)
[2019-03-25 08:06] VITALS: BP 134/95; PULSE 63; RESP 20; TEMP 97.8; O2SAT 96
[2019-03-25] MEDS: cefTRIAXone 1 gm 1 GM/100 ML BAG IVPB SCH (10:10)
[2019-03-25] MEDS: MethylPREDNISolone 40 mg Vial IVP SCH (10:10)
--- NOTE | 2019-03-25 11:41 | CP.PCM.PN ---
<José Dueñas - Last Filed: 03/25/19 15:28> Subjective - Date & Time of Evaluation Date of Evaluation: 03/25/19 Time of Evaluation: 10:40 - Subjective Subjective: Infectious disease progress note: Patient seen and examined at bedside. No acute events overnight. States that her cough has improved. No fevers. No other complaints. 12 point ROS performed and negative unless stated above. Objective - Vital Signs/Intake and Output Vital Signs (last 24 hours): Temp Pulse Resp BP Pulse Ox 97.8 F 63 20 134/95 H 96 03/25/19 08:05 03/25/19 10:10 03/25/19 08:05 03/25/19 10:10 03/25/19 08:05 Intake and Output: 03/25/19 03/25/19 06:59 18:59 Intake Total 1280 Balance 1280 - Medications Medications: Current Medications Acetaminophen (Tylenol 325mg Tab) 650 mg PO Q6H PRN PRN Reason: Fever >100.4 F Albuterol/Ipratropium (Duoneb 3 Mg/0.5 Mg (3 Ml) Ud) 3 ml IH [id number] PENDING SALE TO [facility] Last Admin: 03/25/19 08:14 Dose: 3 ml Albuterol/Ipratropium (Duoneb 3 Mg/0.5 Mg (3 Ml) Ud) 3 ml IH Q2H PRN PRN Reason: Shortness of Breath Apixaban (Eliquis) 2.5 mg PO BID PENDING SALE TO [facility]; Protocol Last Admin: 03/25/19 10:09 Dose: 2.5 mg Atorvastatin Calcium (Lipitor) 10 mg PO DIN PENDING SALE TO [facility] Last Admin: 03/24/19 17:29 Dose: 10 mg Azithromycin (Zithromax) 500 mg PO DAILY PENDING SALE TO [facility]; Protocol Stop: 03/28/19 10:01 Last Admin: 03/25/19 10:11 Dose: 500 mg Carvedilol (Coreg) 3.125 mg PO BID PENDING SALE TO [facility] Last Admin: 03/25/19 10:09 Dose: 3.125 mg Ceftriaxone Sodium (Rocephin 1 Gram Ivpb) 1 gm in 100 mls @ 100 mls/hr IVPB DAILY PENDING SALE TO [facility]; Protocol Last Admin: 03/25/19 10:10 Dose: 100 mls/hr Levothyroxine Sodium (Synthroid) 50 mcg PO 0600 PENDING SALE TO [facility] Last Admin: 03/25/19 05:52 Dose: 50 mcg Lisinopril (Zestril) 5 mg PO DAILY PENDING SALE TO [facility] Last Admin: 03/25/19 10:10 Dose: 5 mg Melatonin (Melatonin) 3 mg PO HS PRN PRN Reason: insomnia Last Admin: 03/25/19 00:51 Dose: 3 mg Methylprednisolone (Solu-Medrol) 20 mg IVP Q12 PENDING SALE TO [facility] Last Admin: 03/25/19 10:10 Dose: 20 mg Promethazine HCl/Dextromethorphan (Phenergan Dm Syrup) 5 ml PO Q6H PRN PRN Reason: Cough Last Admin: 03/24/19 21:25 Dose: 5 ml - Labs Labs: 03/23/19 09:00 03/21/19 06:40 - Constitutional Appears: No Acute Distress - Head Exam Head Exam: ATRAUMATIC, NORMOCEPHALIC - Eye Exam Eye Exam: EOMI - ENT Exam ENT Exam: Mucous Membranes Moist - Respiratory Exam Respiratory Exam: Clear to Ausculation Bilateral. absent: Wheezes - Cardiovascular Exam Cardiovascular Exam: REGULAR RHYTHM, +S1, +S2 - GI/Abdominal Exam GI & Abdominal Exam: Soft. absent: Tenderness - Extremities Exam Extremities Exam: absent: Calf Tenderness, Pedal Edema - Neurological Exam Neurological Exam: Alert, Awake Assessment and Plan - Assessment and Plan (Free Text) Assessment: Sepsis 2/2 b/l Community-acquired pneumonia Atrial fibrillation on Eliquis Coronary artery disease Hypothyroid Hypertension COPD Cont on Rocephin and azithromycin; upon discharge may discontinue antibiotics Follow-up septic work-up - all negative Continue to monitor for any changes Case and plan to be reviewed and discussed with Dr. Lindsey <Christ Lindsey - Last Filed: 03/25/19 15:30> Objective - Vital Signs/Intake and Output Vital Signs (last 24 hours): Temp Pulse Resp BP Pulse Ox 97.8 F 63 20 134/95 H 96 03/25/19 08:05 03/25/19 10:10 03/25/19 08:05 03/25/19 10:10 03/25/19 08:05 Intake and Output: 03/25/19 03/25/19 06:59 18:59 Intake Total 1280 Balance 1280 - Labs Labs: 03/23/19 09:00 03/21/19 06:40 Attending/Attestation - Attestation I have personally seen and examined this patient.: Yes I have fully participated in the care of the patient.: Yes I have reviewed all pertinent clinical information, including history, physical exam and plan: Yes
--- NOTE | 2019-03-26 03:07 | DS ---
HISTORY OF PRESENT ILLNESS: The patient is an 83-year-old, seen and examined, was admitted because of worsening shortness of breath, cough and congestion. She has been on IV antibiotic, doing much better. PHYSICAL EXAMINATION: VITAL SIGNS: She is afebrile. Pulse 63, respirations 20, blood pressure 134/95. LUNGS: Bilateral soft crackles in middle lung region, right more than the left. HEART: S1 and S2 audible. ABDOMEN: Soft and nontender. No rebound. No guarding. NEUROLOGIC: The patient is awake and alert, able to communicate. LABORATORY DATA: Blood sugar is 165. Her blood culture and urine cultures are negative. ASSESSMENT: 1. Bilateral pneumonia community acquired, failed outpatient treatment. 2. Chronic atrial fibrillation, on Eliquis. 3. Coronary artery disease. 4. Hypertension. 5. Hypothyroidism. 6. History of chronic obstructive pulmonary disease secondary to second-hand smoking. Her parents and her was a smoker. PLAN: The patient is going to be discharged home today on p.o. antibiotic, steroids. She has nebulizer at home and she will follow with her PMD. Letha Garza MD
== END 2019-03-25 15:03 | disposition home or self-care (01) | DRG 871 ==
LOC: ED 19:48 → ERH 03-19 00:36 → 2RSO 03-19 02:19 → OBSVTOIN 03-19 18:06 → 3RNO 03-20 13:43
PROVIDERS: ADMIT Internal Medicine; ATTEND Internal Medicine
DX: A41.9 Sepsis, unspecified organism (principal); J69.0 Pneumonitis due to inhalation of food and vomit; J98.11 Atelectasis; J44.0 Chronic obstructive pulmonary disease with (acute) lower respiratory infection; I25.10 Atherosclerotic heart disease of native coronary artery without angina pectoris; I10 Essential (primary) hypertension; E03.9 Hypothyroidism, unspecified; G47.30 Sleep apnea, unspecified; R09.02 Hypoxemia; Z79.01 Long term (current) use of anticoagulants; Z95.0 Presence of cardiac pacemaker; E11.9 Type 2 diabetes mellitus without complications; I48.2 Chronic atrial fibrillation; F41.9 Anxiety disorder, unspecified; E78.5 Hyperlipidemia, unspecified; M41.9 Scoliosis, unspecified; Z77.22 Contact with and (suspected) exposure to environmental tobacco smoke (acute) (chronic); Z87.891 Personal history of nicotine dependence; Z90.710 Acquired absence of both cervix and uterus; Z96.651 Presence of right artificial knee joint; Z98.61 Coronary angioplasty status